=== PATIENT | female | born 1945 | race Caucasian/White ===

== ENCOUNTER 2024-04-20 11:34 | Outpatient (REF) | payer MEDICARE, SELFPAY ==
[2024-04-20 12:55] LABS: MANUAL DIFF FLAG NO
[2024-04-20 12:59] LABS: Basophils Percent Auto 0.4 % (0-2); Eosinophils Absolute Auto 0.2 X10*3/uL (0.0-0.4); Eosinophils Percent Auto 2.3 % (0-4); Hematocrit 37.8 % (37.0-47.0); Hemoglobin 12.6 g/dl (12.0-16.0); Imm Gran Abs Auto 0.03 X10*3/uL (0.00-0.03); Imm Gran Pct Auto 0.4 % (0.0-0.4); Lymphocytes Absolute Auto 1.7 X10*3/uL (1.2-4.9); Lymphocytes Percent Auto 24.5 % (20-40); Mean Corpuscular HGB Conc 33.3 g/dl (31.0-35.0); Mean Corpuscular Hemoglobin 32.4 pg (27.0-33.0); Mean Corpuscular Volume 97.2 fL (80.0-98.0); Mean Platelet Volume 9.5 fL (9.4-12.3); Monocytes Absolute Auto 0.8 X10*3/uL (0.1-1.2); Monocytes Percent Auto 10.8 % (2-11); Neutrophils Absolute Auto 4.3 x10*3/uL (2.0-8.3); Neutrophils Percent Auto 61.6 % (45-73); Platelet Count 322 X10*3/uL (160-400); Red Blood Count 3.89 X10*6/uL (4.20-5.50); Red Cell Distribution Width 13.9 % (11.0-16.0)
[2024-04-20 13:38] LABS: Alanine Aminotransferase 17 U/L (0-31); Albumin Level 4.2 g/dL (3.5-5.0); Alkaline Phosphatase 105 U/L (39-117); Anion Gap 12 (12-20); Aspartate Amino Transferase 22 U/L (5-31); Bilirubin Total 0.4 mg/dL (0.0-1.0); Blood Urea Nitrogen 19 mg/dL (9-16); C Reactive Protein 1.01 mg/dL (< or = 0.50); Calcium 10.3 mg/dL (8.4-10.2); Carbon Dioxide 29 mmol/L (22-29); Chloride 102 mmol/L (96-108); Estimated Glomerular Filt Rate > 60; Glucose Random 103 mg/dL (60-115); Potassium 4.5 mmol/L (3.3-5.1); Sodium 138 mmol/L (135-145); Total Protein 7.3 g/dL (6.5-8.0)
[2024-04-21 08:42] LABS: HBS Num1 0.32 mIU/mL (0-7.99); HBc Num1 0.09 S/CO (0.00-0.79); HBsAGNum1 0.19 S/CO (0.00-0.99); Hepatitis A Antibody IgM 0.11 Index (0-0.79); Hepatitis B Core Antibody Nonreactive (Nonreactive); Hepatitis B Surface Antigen Negative (Negative); ~HepC Num1 0.05 S/CO (0.00-0.79); ~Hepatitis A Antibody IgM Nonreactive (Nonreactive); ~Hepatitis B Surface Antibody NONREACTIVE (Nonreactive); ~Hepatitis C Antibody Nonreactive (Nonreactive)
[2024-04-21 19:59] LABS: Myeloperoxidase Antibody <1.0 AI; Proteinase 3 PR3 Antibodies <1.0 AI
[2024-04-22 15:59] LABS: Cyclic Citrullinated Peptide <16 UNITS
[2024-04-23 02:18] LABS: TS Negative Control Passed; TS Panel A 0; TS Panel B 0; TS Positive Control Passed; TSpotTB Negative (Negative)
[2024-04-24 21:30] LABS: IgA 102 mg/dL (70-320); IgG 733 mg/dL (600-1540); IgM 45 mg/dL (50-300)
[2024-04-27 21:28] LABS: Prot Elec - Albumin 4.2 g/dL (3.8-4.8); Prot Elec - Alpha1 0.4 g/dL (0.2-0.3); Prot Elec - Beta 1 0.5 g/dL (0.4-0.6); Prot Elec - Beta 2 0.4 g/dL (0.2-0.5); Prot Elec - Gamma 0.7 g/dL (0.8-1.7); Prot Elec - Total Protein 7.1 g/dL (6.1-8.1)
== END 2024-04-20 11:35 | disposition home or self-care (01) ==
LOC: HO.LAB 11:34
PROVIDERS: Visit Provider Student in an Organized Health Care Education/Training Program
DX: M31.6 Other giant cell arteritis (principal); Z11.59 Encounter for screening for other viral diseases; Z11.7 Encounter for testing for latent tuberculosis infection; Z72.89 Other problems related to lifestyle
CPT/HCPCS: 36415; 80053; 82550; 82784; 84165; 85025; 86021; 86140; 86200; 86334; 86481; 86704; 86706; 86709; 86803; 87340; 99202

== ENCOUNTER 2024-04-20 11:34 | Outpatient (AMB) | payer MEDICARE, SELFPAY ==
--- NOTE | 2024-04-20 11:35 | A.OFFVIS_ITS ---
Vital Signs 04/20/24 11:38 Height 5 ft 6 in Weight 126 lb 1.671 oz BMI 20.4 BP 122/70 Blood Pressure Location Lt brachial Position Sitting Pulse 60 Pulse Source Pulse Oximeter Pulse Oximetry (%) 97 Oxygen Delivery Method Room Air Intake Visit Reasons: Temporal Arteritis Intake Note: Patient presents for Temporal. wondering if temporal arthritis is coming back. Allergies Sulfa (Sulfonamide Antibiotics) [SULFA (SULFONAMIDE ANTIBIOTICS)] Allergy (Unknown, Verified 04/20/24 11:45) RASH thimerosal [THIMEROSAL] Allergy (Unknown, Verified 04/20/24 11:45) EYE RASH sulfa Allergy (Mild, Uncoded 04/20/24 11:45) Rash Thimerosal Allergy (Mild, Uncoded 04/20/24 11:45) Rash Medication List - Last Reconciled 04/20/24 by Keyur Barfield MD aspirin (Adult Aspirin Regimen) 81 mg PO DAILY atorvastatin 10 mg PO DAILY levothyroxine mcg PO HPI Comments Details: This is a 78-year-old female with history of temporal arteritis who presents as a new patient. Symptoms started in 2014 with mild right-sided headaches associated with jaw and tongue claudication. Eventually she had a right temporal artery biopsy which was consistent with temporal arteritis. She states that she has a diagnosis of ocular migraines for many years before that. Patient was evaluated by Dr. Ya at [place] and was on prednisone until 11/2020. Last February patient started having right scalp sensitivity. She would have some temporal area sensitivity and discomfort whenever she palpates the area. At [place], her CRP was elevated and she was started on prednisone for 2 weeks. She stated that prednisone did not help her scalp sensitivity much. She denies having any new visual symptoms. She denies any fevers, morning stiffness, swollen joints, weight loss. Denies any history of DVT/PE. She is unaware of any family history of an autoimmune rheumatic disease. [facility] Medical History Ocular migraine Nuclear sclerosis Genital HSV Prediabetes Osteoporosis without pathological fracture Wrist fracture PMR (polymyalgia rheumatica) Temporal arteritis Carotid stenosis Basal cell carcinoma Rosacea Hypothyroidism Allergic rhinitis Surgical History Cataract extraction status of left eye H/O wrist surgery History of neck surgery Hx of cataract surgery Family History Mother Emphysema/COPD Father Prostate cancer Sister Emphysema/COPD Social History Household Members: Spouse Housing: House Alcohol intake: current Comment: Occassionally Patient Tobacco Use Status: Never used Tobacco Female Reproductive History Menstrual Age of Menarche: 15 Total pregnancies: 0 Review of Systems Const Denies fever(s), Denies weight gain and Denies weight loss Eyes Reports blurry vision Card Reports irregular heart rhythm Resp Reports no additional complaints Musc Denies arthralgias and Denies stiffness Skin/Breast Denies rash Physical Exam Vital Signs: Last Vital Signs Pulse 60 04/20/24 11:38 BP 122/70 04/20/24 11:38 Pulse Ox 97 04/20/24 11:38 Oxygen Delivery Method Room Air 04/20/24 11:38 BMI result Body Mass Index 20.4 Const General: cooperative, healthy appearing and comfortable Nutritional Appearance: thin Orientation/consciousness: patient oriented x3 Limitations: no limitations HEENT Other: No temporal area tenderness bilaterally Head: Yes normocephalic and Yes atraumatic Mouth: moist mucous membranes Resp Effort & Inspection: normal respiratory effort and able to speak in complete sentences Auscultation: clear to auscultation bilaterally Cardio Rate: regular rate Skin General skin exam: no rashes or lesions noted Neuro General: patient oriented x3 Extrem Other: Osteoarthritic changes of both hands with no active synovitis Normal nailfold capillaroscopy Normal range of motion of shoulders Results Reviewed Results Reviewed: Right temporal artery biopsy 12/2015? Final diagnosis:? Segment of artery with medial inflammation and disruption of elastic lamina in keeping with giant cell arteritis Assessment & Plan Assessment & Plan (1) Temporal arteritis: Comment: September 2015: Headaches, neurologic and ocular symptoms; positive TA biopsy December 20, 2015 PDN tapered off 11/2020 Code(s): M31.6 - Other giant cell arteritis Category: Medical Plan: This is a 78-year-old female with history of temporal arteritis who presents as a new patient. Patient has been tapered off the prednisone around 11/2020. In February she started having right scalp sensitivity. Her CRP was elevated and she was prescribed prednisone without much improvement. She did not have the initial symptoms of right temporal headaches and jaw and tongue claudication. I will recheck her inflammatory markers. Follow-up in 4 weeks Plan I spent 48 minutes reviewing patient's chart, evaluating patient, ordering diagnostic workup, counseling patient and documenting in the chart Orders: Orders C Reactive Protein Today M31.6 - Other giant cell arteritis Hepatitis A,B,C Profile Today Z11.59 - Encounter for screening for other viral diseases T Spot TB Today Z11.7 - Encounter for testing for latent tuberculosis infection ANCA Vasculitides Today M31.6 - Other giant cell arteritis Complete Blood Count Auto Diff Today M31.6 - Other giant cell arteritis Comprehensive Met. Panel Today M31.6 - Other giant cell arteritis Immunofixation Pnl, Serum Today M31.6 - Other giant cell arteritis Protein Electrophoresis, Serum Today M31.6 - Other giant cell arteritis Creatine Kinase Total Today M31.6 - Other giant cell arteritis Cyclic Citrullinated Peptide Today M31.6 - Other giant cell arteritis Coding Level of Care Code New Pt Level 4 (09608) Diagnoses Temporal arteritis M31.6
[2024-04-20 11:38] VITALS: BP 122/70; PULSE 60; O2SAT 97; BMI 20.4
== END 2024-04-20 12:19 | disposition home or self-care (01) ==
PROVIDERS: PCP Internal Medicine; Visit Provider Student in an Organized Health Care Education/Training Program
DX: M31.6 Other giant cell arteritis (principal)
CPT/HCPCS: 99204

== ENCOUNTER 2024-05-21 07:27 | Outpatient (AMB) | payer MEDICARE, SELFPAY ==
--- NOTE | 2024-05-21 07:29 | A.OFFVIS_ITS ---
Vital Signs 05/21/24 07:35 Height 5 ft 6 in Weight 127 lb 13.89 oz BMI 20.6 BP 112/60 Blood Pressure Location Rt brachial Position Sitting Respiration 16 Pulse 69 Pulse Source Pulse Oximeter Pulse Oximetry (%) 92 Oxygen Delivery Method Room Air Intake Visit Reasons: GCA/CM Intake Note: Patient presents for GCA. Allergies Sulfa (Sulfonamide Antibiotics) [SULFA (SULFONAMIDE ANTIBIOTICS)] Allergy (Unknown, Verified 05/21/24 07:34) RASH thimerosal [THIMEROSAL] Allergy (Unknown, Verified 05/21/24 07:34) EYE RASH sulfa Allergy (Mild, Uncoded 04/20/24 11:45) Rash Thimerosal Allergy (Mild, Uncoded 04/20/24 11:45) Rash Medication List - Last Reconciled 05/21/24 by Keyur Barfield MD aspirin (Adult Aspirin Regimen) 81 mg PO DAILY atorvastatin 10 mg PO DAILY levothyroxine mcg PO HPI Comments Details: Patient returns for follow-up. She states that she feels about the same, she continues to have slight pain and sensitivity on palpating her right temporal area, she gets intermittent jaw pain, she gets stiffness with range of motion of her hips, she also has intermittent episodes of her hands stiffening up. No joint swelling. No fever Initial history: This is a 78-year-old female with history of temporal arteritis who presents as a new patient. Symptoms started in 2014 with mild right-sided headaches associated with jaw and tongue claudication. Eventually she had a right temporal artery biopsy which was consistent with temporal arteritis. She states that she has a diagnosis of ocular migraines for many years before that. Patient was evaluated by Dr. Ya at [place] and was on prednisone until 11/2020. Last February patient started having right scalp sensitivity. She would have some temporal area sensitivity and discomfort whenever she palpates the area. At [place], her CRP was elevated and she was started on prednisone for 2 weeks. She stated that prednisone did not help her scalp sensitivity much. She denies having any new visual symptoms. She denies any fevers, morning stiffness, swollen joints, weight loss. Denies any history of DVT/PE. She is unaware of any family history of an autoimmune rheumatic disease. [facility] Medical History Ocular migraine Nuclear sclerosis Genital HSV Prediabetes Osteoporosis without pathological fracture Wrist fracture PMR (polymyalgia rheumatica) Temporal arteritis Carotid stenosis Basal cell carcinoma Rosacea Hypothyroidism Allergic rhinitis Surgical History Cataract extraction status of left eye H/O wrist surgery History of neck surgery Hx of cataract surgery Family History Mother Emphysema/COPD Father Prostate cancer Sister Emphysema/COPD Social History Household Members: Spouse Housing: House Alcohol intake: current Comment: Occassionally Patient Tobacco Use Status: Never used Tobacco Female Reproductive History Menstrual Age of Menarche: 15 Total pregnancies: 0 Review of Systems ENT Details: Right temporal area sensitivity and jaw pain Musc Reports arthralgias, Denies joint swelling, Reports limited range of motion and Reports stiffness Physical Exam Vital Signs: Last Vital Signs Pulse 69 05/21/24 07:35 Resp 16 05/21/24 07:35 BP 112/60 05/21/24 07:35 Pulse Ox 92 05/21/24 07:35 Oxygen Delivery Method Room Air 05/21/24 07:35 BMI result Body Mass Index 20.6 Const General: cooperative, healthy appearing and comfortable Nutritional Appearance: thin Orientation/consciousness: patient oriented x3 Limitations: no limitations HEENT Other: No temporal area tenderness bilaterally Head: Yes normocephalic and Yes atraumatic Mouth: moist mucous membranes Resp Effort & Inspection: normal respiratory effort and able to speak in complete sentences Auscultation: clear to auscultation bilaterally Cardio Rate: regular rate Skin General skin exam: no rashes or lesions noted Neuro General: patient oriented x3 Extrem Other: Osteoarthritic changes of both hands with no active synovitis Normal nailfold capillaroscopy Normal range of motion of shoulders Results Reviewed Results Reviewed: Right temporal artery biopsy 12/2015? Final diagnosis:? Segment of artery with medial inflammation and disruption of elastic lamina in keeping with giant cell arteritis Assessment & Plan Assessment & Plan (1) Temporal arteritis: Comment: September 2015: Headaches, neurologic and ocular symptoms; positive TA biopsy December 20, 2015 PDN tapered off 11/2020 Code(s): M31.6 - Other giant cell arteritis Category: Medical Plan: This is a 78-year-old female with history of temporal arteritis who presents as a new patient. Patient has been tapered off the prednisone around 11/2020. In February 2024 she started having right scalp sensitivity. Her CRP was elevated and she was prescribed prednisone, her inflammatory markers normalized, on re- evaluation her inflammatory markers increased again, patient continues to have right right temporal areas sensitivity as well as intermittent jaw pain, and slight symptoms of inflammatory arthritis/PMR. I think treatment should be restarted however I think her disease is quite mild and may respond to low doses of prednisone. Also history of osteoporosis complicated by to fractures is another reason not to use high doses of prednisone Start prednisone 5 mg daily for 1 month, repeat inflammatory markers, if inflammatory markers have normalized, we will taper prednisone by 1 mg per month If there is poor control of her symptoms, we will consider Actemra I think patient should get imaging of her great vessels. I would like to order an MR angiogram of the chest and neck. I asked patient to ask her surgeon whether her hardware in her wrists are MRI compatible. Check inflammatory markers in one-month and in 2 months before next visit (2) Osteoporosis without pathological fracture: Comment: Alendronate started 12/2017- 2020 Both wrists were fractured, 1 in 2016 and the other in 2018 Code(s): M81.0 - Age-related osteoporosis without current pathological fracture Category: Medical Plan I spent 48 minutes reviewing patient's chart, evaluating patient, ordering diagnostic workup, counseling patient and documenting in the chart Orders: Orders Comprehensive Met. Panel 2 Months M31.6 - Other giant cell arteritis C Reactive Protein 2 Months M31.6 - Other giant cell arteritis Erythrocyte Sedimentation Rate 2 Months M31.6 - Other giant cell arteritis C Reactive Protein 1 Month M31.6 - Other giant cell arteritis, M81.0 - Age- related osteoporosis without current pathological fracture Complete Blood Count Auto Diff 2 Months M31.6 - Other giant cell arteritis Complete Blood Count Auto Diff 1 Month M31.6 - Other giant cell arteritis, M81.0 - Age-related osteoporosis without current pathological fracture Comprehensive Met. Panel 1 Month M31.6 - Other giant cell arteritis, M81.0 - Age-related osteoporosis without current pathological fracture Erythrocyte Sedimentation Rate 1 Month M31.6 - Other giant cell arteritis, M81.0 - Age-related osteoporosis without current pathological fracture Medications: New prednisone 5 mg PO DAILY 30 tabs 0RF Coding Level of Care Code Est Pt Level 4 (88957) Diagnoses Temporal arteritis M31.6 Osteoporosis without pathological fracture M81.0
[2024-05-21 07:35] VITALS: BP 112/60; PULSE 69; RESP 16; O2SAT 92; BMI 20.6
== END 2024-05-21 08:20 | disposition home or self-care (01) ==
PROVIDERS: Visit Provider Student in an Organized Health Care Education/Training Program
DX: M31.6 Other giant cell arteritis (principal); M81.0 Age-related osteoporosis without current pathological fracture
CPT/HCPCS: 99214

== ENCOUNTER → 2024-05-21 07:27 | Outpatient (BNVA) | payer MEDICARE, SELFPAY | PROVIDERS: Visit Provider Student in an Organized Health Care Education/Training Program | DX: M31.6 Other giant cell arteritis (principal); M81.0 Age-related osteoporosis without current pathological fracture | CPT/HCPCS: 99212 ==

== ENCOUNTER 2024-06-03 11:52 | Outpatient (REF) | payer MEDICARE, SELFPAY ==
--- NOTE | ~2024-06-03 | MR_ITS ---
STUDY PERFORMED: MRA of the chest HISTORY: Temporal arteritis, giant cell arteritis DESCRIPTION: Routine chest MRA protocol without and with contrast was performed. 17 mL's of gadolinium this was administered. The images were reviewed and postprocessed on a dedicated 3-D workstation. COMPARISON: None FINDINGS: VASCULAR: ASCENDING AORTA: Patent and normal in caliber. The mid segment measures 3.1 x 3.0 cm. No evidence of wall thickening or vessel irregularity AORTIC ARCH: Patent and normal in caliber. The mid aortic arch 2.5 x 2.4 cm. Three-vessel arch anatomy. The great vessels are patent. There is mild wall irregularity and patulous appearance of the bilateral subclavian arteries. No significant stenosis or dissection. DESCENDING AORTA: Normal in caliber and patent. Mid segment measures 2.3 x 2.1 cm. No evidence of vessel wall irregularity or fold thickening. ABDOMINAL AORTA: Visualized proximal abdominal aorta is normal in caliber. Visualized mesenteric vessels and renal arteries are patent and normal in caliber CENTRAL THORACIC VENOUS SYSTEM: Patent NONVASCULAR: Heart is normal in size. Pericardium is normal. No mediastinal or hilar lymphadenopathy. Lung parenchyma is clear. No pleural effusions. MR/MR angio chest wo/w con IMPRESSION: 1. Mild wall irregularity and patulous appearance of the bilateral subclavian arteries consistent with history of underlying arteritis. No significant stenosis or dissection. 2. The thoracic aorta is normal in caliber and patent. Electronically signed by: Delonte Dong MD 06/05/2024 01:17 PM EDT
[2024-06-03] MEDS: gadobutroL 7.5 ML VIAL IVPUSH (13:50)
[2024-06-03] MEDS: gadobutroL 10 ML VIAL IVPUSH (13:52)
== END 2024-06-03 11:53 | disposition home or self-care (01) ==
LOC: HO.MRI 11:52
PROVIDERS: Visit Provider Student in an Organized Health Care Education/Training Program
DX: M31.6 Other giant cell arteritis (principal)
CPT/HCPCS: 71555; A9585

== ENCOUNTER 2024-06-08 11:49 | Outpatient (REF) | payer MEDICARE, SELFPAY ==
--- NOTE | ~2024-06-08 | MR_ITS ---
EXAMINATION: MR ANGIOGRAPHY NECK WITHOUT AND WITH CONTRAST CLINICAL INFORMATION: 78-year-old female, diagnostic proven temporal arteritis. Assess for vasculitis. COMPARISON: No prior angiography of the neck or head. TECHNIQUE: MRA of the neck was obtained using standard [id number] and sequences without and also with contrast. Intravenous contrast: Gadavist 10 mL. The degree of stenosis determined by criteria similar to NASCET. Multiplanar as well as MIP reformatted images were constructed. Please note, due to [facility] contractual, systems, and staffing issues, an [facility] radiologist was not available for review and dictation of this case until 06/26/2024 FINDINGS: Aortic arch is normal in caliber and enhancement without aneurysm. There is a three-vessel branching pattern. Great vessels are widely patent into the inferior neck. The right subclavian artery demonstrates a mild stenosis with mild irregularity immediately after the takeoff of the right vertebral artery origin, with a tandem moderate stenosis present approximately 2.1 cm more distally (series 10, image 57). (Also see 3-D reformatting series 1019-2). The left subclavian artery also demonstrates a mildly beaded appearance after the origin of the left vertebral artery, with only mild stenosis and no high-grade stenosis. The right vertebral artery is dominant, and demonstrates a patent origin, patent V1, V2, V3, and patent V4 segments without evidence of luminal narrowing or dissection. The left vertebral artery is nondominant, demonstrates mild narrowing at the ostium but is otherwise normal in caliber and course throughout the V1, V2, V3, and V4 segments. It does join to form the basilar artery with the right vertebral artery. Normal antegrade flow in both vertebral arteries. The basilar artery is normal in caliber and course, as is the basilar tip and posterior cerebral arteries. The right common carotid artery is normal in caliber and contour to the bifurcation. The right ICA is normal in caliber and course into the skull base. The intracranial ICA is normal without narrowing or aneurysm. The external carotid artery on the right is normal in caliber and enhancement pattern. The left common carotid artery demonstrates a patent origin, and is normal in course and caliber to the bifurcation. The left ICA is normal in caliber and course into the skull base. Intracranial left ICA is normal without narrowing or aneurysm. The left external carotid artery is normal in caliber and enhancement pattern. Limited imaging of the proximal MCAs, ACAs, and anterior communicating artery demonstrate no abnormality. The imaged sigmoid sinuses, and jugular bulb enhance normally. MR/MR angio neck wo/w con IMPRESSION: 1. Mild beaded appearance of both subclavian arteries after the origin of the vertebral arteries, resulting in a moderate right subclavian stenosis and a mild left subclavian stenosis. Findings are consistent with given history of giant cell arteritis. 2. The remainder of the major arterial structures appear normal, including the bilateral vertebral arteries, bilateral CCAs, ICAs, and ECAs. No evidence of stenosis or aneurysm. 3. Limited imaging of the intracranial arterial structures demonstrates no abnormalities. Electronically signed by: Gopi Scott MD 06/26/2024 04:47 PM EDT
[2024-06-08] MEDS: gadobutroL 7.5 ML VIAL IVPUSH (13:48)
[2024-06-08] MEDS: gadobutroL 2 ML VIAL IVPUSH (13:49)
== END 2024-06-08 11:50 | disposition home or self-care (01) ==
LOC: HO.MRI 11:49
PROVIDERS: Visit Provider Student in an Organized Health Care Education/Training Program
DX: M31.6 Other giant cell arteritis (principal)
CPT/HCPCS: 70549; A9585

== ENCOUNTER 2024-06-18 13:49 | Outpatient (REF) | payer MEDICARE, SELFPAY ==
[2024-06-18 14:03] LABS: MANUAL DIFF FLAG NO
[2024-06-18 14:26] LABS: Basophils Percent Auto 0.4 % (0-2); Eosinophils Absolute Auto 0.1 X10*3/uL (0.0-0.4); Eosinophils Percent Auto 0.7 % (0-4); Hematocrit 39.9 % (37.0-47.0); Hemoglobin 13.2 g/dl (12.0-16.0); Imm Gran Abs Auto 0.05 X10*3/uL (0.00-0.03); Imm Gran Pct Auto 0.4 % (0.0-0.4); Lymphocytes Absolute Auto 1.7 X10*3/uL (1.2-4.9); Mean Corpuscular HGB Conc 33.1 g/dl (31.0-35.0); Mean Corpuscular Hemoglobin 32.1 pg (27.0-33.0); Mean Corpuscular Volume 97.1 fL (80.0-98.0); Mean Platelet Volume 9.9 fL (9.4-12.3); Monocytes Absolute Auto 0.5 X10*3/uL (0.1-1.2); Monocytes Percent Auto 4.3 % (2-11); Neutrophils Absolute Auto 8.9 x10*3/uL (2.0-8.3); Neutrophils Percent Auto 79.2 % (45-73); Platelet Count 260 X10*3/uL (160-400); Red Blood Count 4.11 X10*6/uL (4.20-5.50); Red Cell Distribution Width 13.5 % (11.0-16.0); White Blood Count 11.3 X10*3/uL (4.8-10.8)
[2024-06-18 14:53] LABS: Alanine Aminotransferase 20 U/L (0-31); Albumin Level 4.5 g/dL (3.5-5.0); Alkaline Phosphatase 98 U/L (39-117); Anion Gap 13 (12-20); Aspartate Amino Transferase 20 U/L (5-31); Bilirubin Total 0.4 mg/dL (0.0-1.0); Blood Urea Nitrogen 25 mg/dL (9-16); C Reactive Protein 0.12 mg/dL (< or = 0.50); Calcium 10.7 mg/dL (8.4-10.2); Carbon Dioxide 27 mmol/L (22-29); Chloride 101 mmol/L (96-108); Estimated Glomerular Filt Rate > 60; Glucose Random 125 mg/dL (60-115); Potassium 4.8 mmol/L (3.3-5.1); Sodium 136 mmol/L (135-145); Total Protein 7.4 g/dL (6.5-8.0)
[2024-06-18 15:07] LABS: Erythrocyte Sedimentation Rate 12 MM/HR (0-20)
== END 2024-06-18 13:50 | disposition home or self-care (01) ==
LOC: HO.LAB 13:49
PROVIDERS: PCP Internal Medicine; Visit Provider Student in an Organized Health Care Education/Training Program
DX: M31.6 Other giant cell arteritis (principal); M81.0 Age-related osteoporosis without current pathological fracture
CPT/HCPCS: 36415; 80053; 85025; 85652; 86140

== ENCOUNTER 2024-07-22 15:12 | Outpatient (REF) | payer MEDICARE, SELFPAY ==
[2024-07-22 15:33] LABS: MANUAL DIFF FLAG NO
[2024-07-22 15:47] LABS: Basophils Absolute Auto 0.1 X10*3/uL (0.0-0.2); Basophils Percent Auto 0.5 % (0-2); Eosinophils Absolute Auto 0.1 X10*3/uL (0.0-0.4); Hematocrit 37.7 % (37.0-47.0); Hemoglobin 12.6 g/dl (12.0-16.0); Imm Gran Abs Auto 0.08 X10*3/uL (0.00-0.03); Imm Gran Pct Auto 0.7 % (0.0-0.4); Lymphocytes Absolute Auto 1.6 X10*3/uL (1.2-4.9); Lymphocytes Percent Auto 14.6 % (20-40); Mean Corpuscular HGB Conc 33.4 g/dl (31.0-35.0); Mean Corpuscular Hemoglobin 32.1 pg (27.0-33.0); Mean Corpuscular Volume 95.9 fL (80.0-98.0); Mean Platelet Volume 9.3 fL (9.4-12.3); Monocytes Absolute Auto 0.9 X10*3/uL (0.1-1.2); Monocytes Percent Auto 8.5 % (2-11); Neutrophils Absolute Auto 8.1 x10*3/uL (2.0-8.3); Neutrophils Percent Auto 74.7 % (45-73); Platelet Count 310 X10*3/uL (160-400); Red Blood Count 3.93 X10*6/uL (4.20-5.50); Red Cell Distribution Width 13.2 % (11.0-16.0); White Blood Count 10.9 X10*3/uL (4.8-10.8)
[2024-07-22 16:04] LABS: Alanine Aminotransferase 16 U/L (0-31); Albumin Level 3.9 g/dL (3.5-5.0); Alkaline Phosphatase 92 U/L (39-117); Anion Gap 11 (12-20); Aspartate Amino Transferase 23 U/L (5-31); Bilirubin Total 0.2 mg/dL (0.0-1.0); Blood Urea Nitrogen 15 mg/dL (9-16); C Reactive Protein 3.86 mg/dL (< or = 0.50); Calcium 9.8 mg/dL (8.4-10.2); Carbon Dioxide 29 mmol/L (22-29); Chloride 100 mmol/L (96-108); Estimated Glomerular Filt Rate 49; Glucose Random 119 mg/dL (60-115); Potassium 4.7 mmol/L (3.3-5.1); Sodium 135 mmol/L (135-145)
[2024-07-22 20:11] LABS: Erythrocyte Sedimentation Rate 33 MM/HR (0-20)
== END 2024-07-22 15:13 | disposition home or self-care (01) ==
LOC: HO.LAB 15:12
PROVIDERS: PCP Internal Medicine; Visit Provider Student in an Organized Health Care Education/Training Program
DX: M31.6 Other giant cell arteritis (principal)
CPT/HCPCS: 36415; 80053; 85025; 85652; 86140

== ENCOUNTER 2024-07-23 11:16 | Outpatient (AMB) | payer MEDICARE, SELFPAY ==
--- NOTE | 2024-07-23 11:18 | MHC.OFFVIS ---
Vital Signs 07/23/24 11:21 Height 5 ft 6 in Weight 128 lb 11.999 oz BMI 20.8 BP 112/62 Blood Pressure Location Lt brachial Position Sitting Respiration 16 Pulse 58 Pulse Oximetry (%) 98 Oxygen Delivery Method Simple Mask Intake Visit Reasons: PMR/CM Intake Note: Patient presents for PMR. Allergies Sulfa (Sulfonamide Antibiotics) [SULFA (SULFONAMIDE ANTIBIOTICS)] Allergy (Unknown, Verified 07/23/24 11:21) RASH thimerosal [THIMEROSAL] Allergy (Unknown, Verified 07/23/24 11:21) EYE RASH sulfa Allergy (Mild, Uncoded 04/20/24 11:45) Rash Thimerosal Allergy (Mild, Uncoded 04/20/24 11:45) Rash Medication List - Last Reconciled 07/23/24 by Keyur Barfield MD aspirin (Adult Aspirin Regimen) 81 mg PO DAILY atorvastatin 10 mg PO DAILY levothyroxine mcg PO prednisone 4 mg (4 x 1 mg) PO DAILY 35 days HPI Comments Details: 78-year-old female with GCA returns for follow-up. She is here with her . They just returned from a trip to [place] and she had a bad upper respiratory tract infection with fever nasal congestion and cough. She was recently evaluated by her PCP and was prescribed a Z-Charlie. Symptoms are improving but she continues to have cough, nasal congestion. She denies any fevers. She denies any symptoms suggestive of active GCA flare such as scalp sensitivity, jaw claudication, headaches. Initial history: This is a 78-year-old female with history of temporal arteritis who presents as a new patient. Symptoms started in 2014 with mild right-sided headaches associated with jaw and tongue claudication. Eventually she had a right temporal artery biopsy which was consistent with temporal arteritis. She states that she has a diagnosis of ocular migraines for many years before that. Patient was evaluated by Dr. Ya at [place] and was on prednisone until 11/2020. Last February patient started having right scalp sensitivity. She would have some temporal area sensitivity and discomfort whenever she palpates the area. At [place], her CRP was elevated and she was started on prednisone for 2 weeks. She stated that prednisone did not help her scalp sensitivity much. She denies having any new visual symptoms. She denies any fevers, morning stiffness, swollen joints, weight loss. Denies any history of DVT/PE. She is unaware of any family history of an autoimmune rheumatic disease. [facility] Medical History Ocular migraine Nuclear sclerosis Genital HSV Prediabetes Osteoporosis without pathological fracture Wrist fracture PMR (polymyalgia rheumatica) Temporal arteritis Carotid stenosis Basal cell carcinoma Rosacea Hypothyroidism Allergic rhinitis Surgical History Cataract extraction status of left eye H/O wrist surgery History of neck surgery Hx of cataract surgery Family History Mother Emphysema/COPD Father Prostate cancer Sister Emphysema/COPD Social History Household Members: Spouse Housing: House Alcohol intake: current Comment: Occassionally Patient Tobacco Use Status: Never used Tobacco Female Reproductive History Menstrual Age of Menarche: 15 Total pregnancies: 0 Review of Systems Const Reports fatigue and Reports weakness ENT Reports nasal congestion and Reports sinus pain Card Denies dyspnea on exertion Resp Reports cough and Denies dyspnea on exertion Musc Reports arthralgias and Denies joint swelling Neuro Reports weakness Endo Reports fatigue Physical Exam Vital Signs: Last Vital Signs Pulse 58 07/23/24 11:21 Resp 16 07/23/24 11:21 BP 112/62 07/23/24 11:21 Pulse Ox 98 07/23/24 11:21 Oxygen Delivery Method Simple Mask 07/23/24 11:21 BMI result Body Mass Index 20.8 Const General: cooperative, healthy appearing and comfortable Nutritional Appearance: thin Orientation/consciousness: patient oriented x3 Limitations: no limitations HEENT Other: No temporal area tenderness bilaterally Patient is wearing a mask Bilateral maxillary sinus tenderness Head: Yes normocephalic and Yes atraumatic Mouth: moist mucous membranes Resp Effort & Inspection: normal respiratory effort and able to speak in complete sentences Auscultation: clear to auscultation bilaterally Cardio Rate: regular rate Skin General skin exam: no rashes or lesions noted Neuro General: patient oriented x3 Extrem Other: Osteoarthritic changes of both hands with no active synovitis Normal nailfold capillaroscopy Normal range of motion of shoulders Results Reviewed Results Reviewed: Right temporal artery biopsy 12/2015? Final diagnosis:? Segment of artery with medial inflammation and disruption of elastic lamina in keeping with giant cell arteritis MR/MR angio neck wo/w con IMPRESSION: 1. Mild beaded appearance of both subclavian arteries after the origin of the vertebral arteries, resulting in a moderate right subclavian stenosis and a mild left subclavian stenosis. Findings are consistent with given history of giant cell arteritis. 2. The remainder of the major arterial structures appear normal, including the bilateral vertebral arteries, bilateral CCAs, ICAs, and ECAs. No evidence of stenosis or aneurysm. 3. Limited imaging of the intracranial arterial structures demonstrates no abnormalities. Electronically signed by: Gopi Scott MD 06/26/2024 04:47 PM Assessment & Plan Assessment & Plan (1) Temporal arteritis: Comment: September 2015: Headaches, neurologic and ocular symptoms; positive TA biopsy December 20, 2015 PDN tapered off 11/2020 Mild flare prednisone restarted 05/2024 Code(s): M31.6 - Other giant cell arteritis Category: Medical Plan: This is a 78-year-old female with history of temporal arteritis who presents for follow-up. She is doing well overall in terms of her GCA. However she is recovering from an upper respiratory tract infection. This likely explains her elevated inflammatory markers. Advised patient to continue with prednisone 4 mg daily until her current infection resolves then taper down to 3 mg daily for a month then 2 mg daily for 1 month Labs before next visit in 2 months (2) Osteoporosis without pathological fracture: Comment: Alendronate started 12/2017- 2020 Both wrists were fractured, 1 in 2017 and the other in 2018 Code(s): M81.0 - Age-related osteoporosis without current pathological fracture Category: Medical Plan: Due for repeat DEXA 11/2024 Plan I spent 28 minutes reviewing patient's chart, evaluating patient, ordering diagnostic workup, counseling patient and documenting in the chart Orders: Orders Complete Blood Count Auto Diff 2 Months . - Other giant cell arteritis Comprehensive Met. Panel 2 Months - Other giant cell arteritis C Reactive Protein 2 Months . - Other giant cell arteritis Erythrocyte Sedimentation Rate 2 Months . - Other giant cell arteritis Medications: Changed From prednisone 4 mg (4 x 1 mg) PO DAILY 35 days 140 tabs 0RF To prednisone 4 mg (4 x 1 mg) PO DAILY 120 tabs 1RF Coding Level of Care Code Est Pt Level 4 (40841) Diagnoses Temporal arteritis M31.6 Osteoporosis without pathological fracture M81.0
[2024-07-23 11:21] VITALS: BP 112/62; PULSE 58; RESP 16; O2SAT 98; BMI 20.8
== END 2024-07-23 11:43 | disposition home or self-care (01) ==
PROVIDERS: PCP Internal Medicine; Visit Provider Student in an Organized Health Care Education/Training Program
DX: M31.6 Other giant cell arteritis (principal); M81.0 Age-related osteoporosis without current pathological fracture
CPT/HCPCS: 99214

== ENCOUNTER → 2024-07-23 11:16 | Outpatient (BNVA) | payer MEDICARE, SELFPAY | PROVIDERS: PCP Internal Medicine; Visit Provider Student in an Organized Health Care Education/Training Program | DX: M31.6 Other giant cell arteritis (principal); M81.0 Age-related osteoporosis without current pathological fracture | CPT/HCPCS: 99212 ==

== ENCOUNTER 2024-09-29 13:37 | Outpatient (REF) | payer MEDICARE, SELFPAY ==
[2024-09-29 13:50] LABS: MANUAL DIFF FLAG NO
[2024-09-29 13:54] LABS: Basophils Absolute Auto 0.1 X10*3/uL (0.0-0.2); Basophils Percent Auto 0.5 % (0-2); Eosinophils Absolute Auto 0.1 X10*3/uL (0.0-0.4); Eosinophils Percent Auto 0.8 % (0-4); Hematocrit 37.5 % (37.0-47.0); Hemoglobin 12.7 g/dl (12.0-16.0); Imm Gran Abs Auto 0.04 X10*3/uL (0.00-0.03); Imm Gran Pct Auto 0.4 % (0.0-0.4); Lymphocytes Absolute Auto 1.8 X10*3/uL (1.2-4.9); Lymphocytes Percent Auto 18.1 % (20-40); Mean Corpuscular HGB Conc 33.9 g/dl (31.0-35.0); Mean Corpuscular Hemoglobin 32.7 pg (27.0-33.0); Mean Corpuscular Volume 96.6 fL (80.0-98.0); Mean Platelet Volume 9.5 fL (9.4-12.3); Monocytes Absolute Auto 0.8 X10*3/uL (0.1-1.2); Monocytes Percent Auto 8.1 % (2-11); Neutrophils Percent Auto 72.1 % (45-73); Platelet Count 267 X10*3/uL (160-400); Red Blood Count 3.88 X10*6/uL (4.20-5.50); Red Cell Distribution Width 14.1 % (11.0-16.0); White Blood Count 9.7 X10*3/uL (4.8-10.8)
[2024-09-29 14:15] LABS: Anion Gap 12 (12-20)
[2024-09-29 14:18] LABS: Aspartate Amino Transferase 30 U/L (5-31); Bilirubin Total 0.4 mg/dL (0.0-1.0); Blood Urea Nitrogen 24 mg/dL (9-16); C Reactive Protein 0.13 mg/dL (< or = 0.50); Calcium 9.6 mg/dL (8.4-10.2); Carbon Dioxide 25 mmol/L (22-29); Chloride 102 mmol/L (96-108); Estimated Glomerular Filt Rate > 60; Glucose Random 109 mg/dL (60-115); Potassium 4.9 mmol/L (3.3-5.1); Sodium 134 mmol/L (135-145)
[2024-09-29 14:37] LABS: Alanine Aminotransferase 21 U/L (0-31); Alkaline Phosphatase 76 U/L (39-117); Erythrocyte Sedimentation Rate 18 MM/HR (0-20)
== END 2024-09-29 13:38 | disposition home or self-care (01) ==
LOC: HO.LAB 13:37
PROVIDERS: PCP Internal Medicine; Visit Provider Student in an Organized Health Care Education/Training Program
DX: M31.6 Other giant cell arteritis (principal)
CPT/HCPCS: 36415; 80053; 85025; 85652; 86140

== ENCOUNTER 2024-09-30 14:46 | Outpatient (AMB) | payer MEDICARE, SELFPAY ==
--- NOTE | 2024-09-30 14:51 | A.OFFVIS_ITS ---
Vital Signs 09/30/24 14:55 Height 5 ft 6 in Weight 127 lb 13.89 oz BMI 20.6 BP 112/50 L Blood Pressure Location Rt brachial Position Sitting Respiration 16 Pulse 65 Pulse Source Pulse Oximeter Pulse Oximetry (%) 98 Oxygen Delivery Method Room Air Intake Visit Reasons: GCA Intake Note: Patient presents for GCA. Allergies Sulfa (Sulfonamide Antibiotics) [SULFA (SULFONAMIDE ANTIBIOTICS)] Allergy (Unknown, Verified 09/30/24 14:54) RASH thimerosal [THIMEROSAL] Allergy (Unknown, Verified 09/30/24 14:54) EYE RASH sulfa Allergy (Mild, Uncoded 04/20/24 11:45) Rash Thimerosal Allergy (Mild, Uncoded 04/20/24 11:45) Rash Medication List - Last Reconciled 09/30/24 by Keyur Barfield MD aspirin (Adult Aspirin Regimen) 81 mg PO DAILY atorvastatin 10 mg PO DAILY levothyroxine mcg PO prednisone 4 mg (4 x 1 mg) PO DAILY HPI Comments Details: 79-year-old female with GCA returns for follow-up. She is doing well overall. The right temporal area sensitivity is improving but she still gets episodes. She has noticed some stiffness difficulty moving her left 3rd finger, usually in the morning. She was evaluated 2 days ago by an eye doctor and she had a change in her prescription. She is doing well otherwise Initial history: This is a 78-year-old female with history of temporal arteritis who presents as a new patient. Symptoms started in 2014 with mild right-sided headaches associated with jaw and tongue claudication. Eventually she had a right temporal artery biopsy which was consistent with temporal arteritis. She states that she has a diagnosis of ocular migraines for many years before that. Patient was evaluated by Dr. Ya at [place] and was on prednisone until 11/2020. Last February patient started having right scalp sensitivity. She would have some temporal area sensitivity and discomfort whenever she palpates the area. At [place], her CRP was elevated and she was started on prednisone for 2 weeks. She stated that prednisone did not help her scalp sensitivity much. She denies having any new visual symptoms. She denies any fevers, morning stiffness, swollen joints, weight loss. Denies any history of DVT/PE. She is unaware of any family history of an autoimmune rheumatic disease. [facility] Medical History Ocular migraine Nuclear sclerosis Genital HSV Prediabetes Osteoporosis without pathological fracture Wrist fracture PMR (polymyalgia rheumatica) Temporal arteritis Carotid stenosis Basal cell carcinoma Rosacea Hypothyroidism Allergic rhinitis Surgical History Cataract extraction status of left eye H/O wrist surgery History of neck surgery Hx of cataract surgery Family History Mother Emphysema/COPD Father Prostate cancer Sister Emphysema/COPD Social History Household Members: Spouse Housing: House Alcohol intake: current Comment: Occassionally Patient Tobacco Use Status: Never used Tobacco Female Reproductive History Menstrual Age of Menarche: 15 Total pregnancies: 0 Review of Systems ENT Details: Right temporal area sensitivity Musc Reports limited range of motion and Reports stiffness Physical Exam Vital Signs: Last Vital Signs Pulse 65 09/30/24 14:55 Resp 16 09/30/24 14:55 BP 112/50 L 09/30/24 14:55 Pulse Ox 98 09/30/24 14:55 Oxygen Delivery Method Room Air 09/30/24 14:55 BMI result Body Mass Index 20.6 Const General: cooperative, healthy appearing and comfortable Nutritional Appearance: thin Orientation/consciousness: patient oriented x3 Limitations: no limitations HEENT Other: No temporal area tenderness bilaterally Head: Yes normocephalic and Yes atraumatic Mouth: moist mucous membranes Resp Effort & Inspection: normal respiratory effort and able to speak in complete sentences Auscultation: clear to auscultation bilaterally Cardio Rate: regular rate Skin General skin exam: no rashes or lesions noted Neuro General: patient oriented x3 Extrem Other: Osteoarthritic changes of both hands with no active synovitis Very subtle triggering of the left 3rd finger Normal nailfold capillaroscopy Normal range of motion of shoulders Results Reviewed Results Reviewed: Right temporal artery biopsy 12/2015? Final diagnosis:? Segment of artery with medial inflammation and disruption of elastic lamina in keeping with giant cell arteritis MR/MR angio neck wo/w con IMPRESSION: 1. Mild beaded appearance of both subclavian arteries after the origin of the vertebral arteries, resulting in a moderate right subclavian stenosis and a mild left subclavian stenosis. Findings are consistent with given history of giant cell arteritis. 2. The remainder of the major arterial structures appear normal, including the bilateral vertebral arteries, bilateral CCAs, ICAs, and ECAs. No evidence of stenosis or aneurysm. 3. Limited imaging of the intracranial arterial structures demonstrates no abnormalities. Electronically signed by: Gopi Scott MD 06/26/2024 04:47 PM Assessment & Plan Assessment & Plan (1) Temporal arteritis: Comment: September 2015: Headaches, neurologic and ocular symptoms; positive TA biopsy December 20, 2015 PDN tapered off 11/2020 Mild flare prednisone restarted 05/2024 Code(s): M31.6 - Other giant cell arteritis Category: Medical Plan: This is a 79-year-old female with history of temporal arteritis who presents for follow-up. On prednisone 2 mg daily. Doing well overall with no signs suggestive of active GCA. Inflammatory markers are normal. Continue to reduce prednisone by 1 mg per month, she should be be off prednisone by the end of October Labs before next visit in 6-8 weeks (2) Osteoporosis without pathological fracture: Comment: Alendronate started 12/2017- 2020 Both wrists were fractured, 1 in 2016 and the other in 2018 Code(s): M81.0 - Age-related osteoporosis without current pathological fracture Category: Medical Plan: Due for repeat DEXA 11/2024 (3) Left trigger finger: Code(s): M65.30 - Trigger finger, unspecified finger Category: Medical Qualifiers: Trigger finger location: middle finger Qualified Code(s): M65.332 - Trigger finger, left middle finger Plan: Minimal symptoms. Discussed trigger finger, can wrap a Band-Aid around her PIP at night, consider finger splints Plan I spent 25 minutes reviewing patient's chart, evaluating patient, ordering diagnostic workup, counseling patient and documenting in the chart Orders: Orders Complete Blood Count Auto Diff 7 Weeks M31.6 - Other giant cell arteritis Comprehensive Met. Panel 7 Weeks M3.6 - Other giant cell arteritis C Reactive Protein 7 Weeks M31.6 - Other giant cell arteritis Erythrocyte Sedimentation Rate 7 Weeks M3.6 - Other giant cell arteritis XR DEXA axial skeleton 11/16/24 M81.0 - Age-related osteoporosis without current pathological fracture Coding Level of Care Code Est Pt Level 4 (58832) Diagnoses Temporal arteritis M31.6 Osteoporosis without pathological fracture M81.0 Trigger middle finger of left hand M65.332 Trigger finger location: middle finger
[2024-09-30 14:55] VITALS: BP 112/50; PULSE 65; RESP 16; O2SAT 98; BMI 20.6
== END 2024-09-30 15:21 | disposition home or self-care (01) ==
PROVIDERS: PCP Internal Medicine; Visit Provider Student in an Organized Health Care Education/Training Program
DX: M31.6 Other giant cell arteritis (principal); M81.0 Age-related osteoporosis without current pathological fracture; M65.332 Trigger finger, left middle finger
CPT/HCPCS: 99214

== ENCOUNTER → 2024-09-30 14:46 | Outpatient (BNVA) | payer MEDICARE, SELFPAY | PROVIDERS: PCP Internal Medicine; Visit Provider Student in an Organized Health Care Education/Training Program | DX: M31.6 Other giant cell arteritis (principal); M81.0 Age-related osteoporosis without current pathological fracture; M65.332 Trigger finger, left middle finger | CPT/HCPCS: 99212 ==

== ENCOUNTER 2024-11-13 12:55 | Outpatient (REF) | payer MEDICARE, SELFPAY ==
--- NOTE | ~2024-11-13 | MM_ITS ---
EXAMINATION: DXA BONE DENSITY AXIAL HISTORY: Estrogen deficiency TECHNIQUE: [employer] Dual energy absorptiometry (DEXA) of the lumbar spine, total left hip, and femoral neck was performed. COMPARISON: There are no prior studies for comparison. FINDINGS: The bone mineral density of the lumbar spine is 0.902 with a T-score of -2.3, and a Z-score of -0.2. The bone mineral density of the left total hip is 0.682 with a T-score of -2.6, and a Z-score of -0.5. The bone mineral density of the left femoral neck is 0.765 with a T-score of -2.0, and a Z-score of 0.2. FRACTURE RISK: The FRAX index suggests a risk of major osteoporotic fracture of 26.5%, and of hip fracture 8.3%. MM/XR DEXA axial skeleton IMPRESSION: Based on bone mineral density, and according to World Health Organization (WHO) criteria, the diagnosis is consistent with osteoporosis. All bone density values are in grams per centimeter squared (g/cm2). Statistically, 68% of repeat scans fall within 1 SD (+/- 0.010 g/cm2 for AP spine L1-L4) and 1 SD (+/- 0.012 g/cm2 for femur total) FRAX is a trademark of the [employer] [place] for Metabolic Bone Disease, a World Health Organization (WHO) Collaborating Center. Electronically signed by: Amadeo Aguilar MD 11/16/2024 12:57 PM [facility]
--- OUTSIDE RECORDS SUMMARY | 2024-11-13 13:09 | XMS_ITS | Encounter Summary ---
Author Organization [facility] Address [address] [place] [address] Care Team Providers Care Splitting Machine Operator Name Role Phone Norma Conde MD Primary Care Provider [phone] Reason for Visit * Reason Comments Hyperlipidemia Hypothyroidism Follow-up 6 MO Encounter Details Date Type Department Care Team ([facility] Contact Info) Description 10/26/2024 2:30 PM EST Office Visit Adult Medicine [address] [phone] Norma Conde MD [address] [place] [id number] Hypothyroidism due to acquired atrophy of thyroid (Primary Dx); Age-related osteoporosis without current pathological fracture; Prediabetes; Other hyperlipidemia; Temporal arteritis (CMS/HCC); Elevated blood pressure reading Social History Tobacco Use Types Packs/Day Years Used Date Smoking Tobacco: Never Smokeless Tobacco: Never Tobacco Cessation:Counseling Given: Not Answered Alcohol Use Standard Drinks/Week Comments Yes 0 (1 standard drink = 0.6 oz pur e alcohol) Sex and Gender Information Value Date Recorded Sex Assigned at Not on file Gender Identity Not on file Sexual Orientation Not on file Job Start Date Occupation Industry Not on file Not on file Not on file documented as of this encounter Last Filed Vital Signs Vital Sign Reading Time Taken Comments Blood Pressure 161/54 10/26/2024 2:56 PM EST Pulse 61 10/26/2024 2:31 PM EST Temperature 36.2 ??C (97.2 ??F) 10/26/2024 2:31 PM ES T Respiratory Rate 14 10/26/2024 2:31 PM EST Oxygen Saturation 99% 10/26/2024 2:31 PM EST Inhaled Oxygen Concentration - - Weight 58.3 kg (128 lb 9.6 oz) 10/26/2024 2:31 P M EST Height 167.6 cm (5' 6 ) 10/26/2024 2:31 PM EST Body Mass Index 20.76 10/26/2024 2:31 PM EST documented in this encounter Progress Notes * Norma Conde MD - 10/26/2024 2:30 PM EST Chief Complaint: Chief Complaint Patient presents with Hyperlipidemia Hypothyroidism Follow-up 6 MO IDENTIFIER: Shelli Menchaca is a 79 y.o. old female HPI She comes for evaluation with hypothyroidism, elevated cholesterol, prediabetes. She is continuing on prednisone for recurrent temporal arteritis and is following with rheumatology. She has osteoporosis and will be having repeat bone density. She notes that her ears are still somewhat blocked although less, the left ear. She was referred to ENT and called for an appointment but never heard back. Her blood pressure is elevated today even with repeat testing. She notes that she did have several weeks of diarrhea up to 3 times per day, stools are now loose about once per day, no blood in the stool, no black stool, no abdominal pain or fevers. She is continuing on thyroid replacement as well as Lipitor for her cholesterol and prednisone through rheumatology, vitamin D. ROS: General: No malaise, significant weight loss or fever Respiratory: No cough, wheezing or shortness of breath Cardiovascular: No chest pain, palpitations, no orthopnea gi as noted Past Medical History: Patient Active Problem List Diagnosis Date Noted History of basal cell carcinoma 08/12/2024 Mild tricuspid regurgitation 10/16/2023 Hyperlipidemia 04/18/2023 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 Prediabetes 11/11/2019 PMR (polymyalgia rheumatica) ([facility]) 11/10/2019 Spondylosis of cervical region without myelopathy or radiculopathy 11/24/2018 Age-related osteoporosis without current pathological fracture 01/01/2018 Temporal arteritis ([facility]) 12/21/2015 Carotid stenosis 12/13/2015 NS (nuclear sclerosis) 01/07/2014 Allergic rhinitis 01/31/2009 Hypothyroidism 08/31/2006 Rosacea 08/31/2006 Surgical History: Past Surgical History: Procedure Laterality Date APPENDECTOMY 08/2016 BREAST BIOPSY Right 1993 : b9 COLONOSCOPY 09/1997 Negative COLONOSCOPY 06/02/2008 Negative COLONOSCOPY 08/22/2018 : Negative average risk screening examination. OTHER SURGICAL HISTORY Lasik surgery on the eyes SCREENING MAMMOGRAM Bilateral 05/14/2024 TONSILLECTOMY Family History: Family History Problem Relation Name Age of Onset COPD Mother age 56 Prostate cancer Father prostate cancer 89, diabetes, mycosis fungoides Emphysema Sister Prostate cancer Brother at 54 Other (Other: liver cancer) Maternal Grandmother age 63 Diabetes Paternal Grandmother age 62 Ovarian cancer Other first cousin 78 Breast cancer Neg Hx Colon cancer Neg Hx Uterine cancer Neg Hx Pancreatic cancer Neg Hx Social History: Social History Tobacco Use Smoking status: Never Smokeless tobacco: Never Substance Use Topics Alcohol use: Yes Allergies: Thimerosal and Sulfa (sulfonamide antibiotics) Medications: Outpatient Medications Marked as Taking for the 10/26/24 encounter (Office Visit) with Norma Conde MD Medication Sig Dispense Refill ascorbic acid (VITAMIN C) 125 mg chewable tablet Chew 2 tablets (250 mg total) 1 (one) time each day. aspirin 81 mg EC tablet Take 1 tablet (81 mg total) by mouth 1 (one) time each day. atorvastatin (LIPITOR) 10 mg tablet Take 1 tablet (10 mg total) by mouth 1 (one) time each day. calcium carbonate (OS-FAIZA) 1,250 mg (500 mg elemental calcium) tablet Take 2 tablets (2,500 mg total) by mouth 1 (one) time each day. cholecalciferol (VITAMIN D-3) 25 mcg (1,000 unit) tablet Take 1 tablet (1,000 Units total) by mouth1 (one) time each day. dietary supplement capsule Take 1 capsule by mouth 1 (one) time each day. Apoaequorin 10 mg- Prevagen glucosamine/chondr murray A sod (glucosamine-chondroitin) 1,500-1,200 mg/30 mL liquid Take by mouth 1 (one) time each day. levothyroxine (SYNTHROID, LEVOTHROID) 100 mcg tablet Take 1 tablet (100 mcg total) by mouth 1 (one)time each day before breakfast. SKIP SUNDAYS LUTEIN-ZEAXANTHIN ORAL Take 1 capsule by mouth 1 (one) time each day. predniSONE (DELTASONE) 1 mg tablet Take 4 tablets (4 mg total) by mouth 1 (one) time each day. Medication Discontinued/Reordered: There are no discontinued medications. Vitals: Blood pressure (!) 161/54, pulse 61, temperature 36.2 ??C (97.2 ??F), temperature source Temporal, resp. rate 14, height 1.676 m (66 ), weight 58.3 kg (128 lb 9.6 oz), SpO2 99%. Body mass index is 20.76 kg/m??.BMI is 18.5 to 24.9 (within the normal range) and will be followed Physical Exam: General: patient is in no acute distress. Tympanic membranes clear, no air fluid levels or erythema. Neck supple without adenopathy, no thyromegaly. Lungs clear with auscultation. Heart: regular [id number] murmur, rub or gallop. Abdomen soft, nontender, no masses or organomegaly. Bowel sounds normal active. Extremities without cyanosis, clubbing or edema. Labs: Lab Results Component Value Date HGBA1C 5.8 10/22/2024 Lab Results Component Value Date TSH 2.16 10/22/2024 Vitamin D level 39 Impression: 1. Hypothyroidism due to acquired atrophy of thyroid 2. Age-related osteoporosis without current pathological fracture 3. Prediabetes 4. Other hyperlipidemia 5. Temporal arteritis (CMS/HCC) 6. Elevated blood pressure reading Assessment and Plan: She will have the bone density has already planned. The diarrhea seems to be improving and she willtry using probiotics. She we will follow with rheumatology as already planned and continue on the prednisone, lipid levels have been controlled and prediabetes level is stable. She continues with a regular walking program. We did discuss repeat referral to ENT, her ear is improving and she will continue with conservative measures for now. Her blood pressure generally is not elevated at office visits but is elevated today. She will start on a careful low-sodium diet and check her blood pressure regularly at home and return in 2 weeks bringing her home machine as well as her readings for repeat evaluation of her blood pressure. Myself and my colleagues have maintained a long-term, longitudinal relationship with this patient, overseeing care of chronic conditions including hypothyroidism, prediabetes, osteoporosis, elevated cholesterol. This care relationship has significantly influenced my decision making and treatment plans during today's encounter. documented in this encounter Plan of Treatment Upcoming Encounters Date Type Department Care Team (Late st Contact Info) Description 12/16/2024 2:30 PM EST Clinical Support Adult [address] [phone] 05/20/2025 1:50 PM EDT Appointment Radiology Department - [address] [phone] 05/20/2025 2:45 PM EDT Office Visit Adult [address] [phone] Norma Conde MD [address] [place] [address] documented as of this encounter Visit Diagnoses Diagnosis Hypothyroidism due to acquired atrophy of thyroid- Primary Age-related osteoporosis without current pathological fracture Prediabetes Other abnormal glucose Other hyperlipidemia Temporal arteritis (CMS/HCC) Giant cell arteritis Elevated blood pressure reading Elevated blood pressure reading without diagnosis of hypertension Encounter for screening mammogram for breast cancer documented in this encounter Care Teams Splitting Machine Operator Relationship Specialty Start Date End Date Norma Conde MD [address] [place] [address] PCP - General 09/27/1992 documented as of this encounter
--- OUTSIDE RECORDS SUMMARY | 2024-11-13 13:09 | XMS_ITS | Encounter Summary ---
Author Organization [facility] Address [address] [place] [address] Care Team Providers Care Gauge Controller Name Role Phone Norma Conde MD Primary Care Provider [phone] Reason for Visit * Reason Onset Date Comments hep series 11/06/2024 Encounter Details Date Type Department Care Team ([facility] st Contact Info) Description 11/06/2024 Telephone Adult Medicine [facility] [address] [place] [address] Malika Clarke PA [address] [place] [address] hep series Social History Tobacco Use Types Packs/Day Years Used Date Smoking Tobacco: Never Smokeless Tobacco: Never Alcohol Use Standard Drinks/Week Comments Yes 0 (1 standard drink = 0.6 oz pur e alcohol) Sex and Gender Information Value Date Recorded Sex Assigned at Not on file Gender Identity Not on file Sexual Orientation Not on file Job Start Date Occupation Industry Not on file Not on file Not on file documented as of this encounter Progress Notes * KYLE Fernandes - 11/06/2024 4:50 PM EST [employer] message sent to pt. * Felipa Delgado - 11/06/2024 4:42 PM EST Patient will be seeing Malika on Saturday for a 2wk hypertension follow up. 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 She would like to get this done at her office visit as that is the only way her insurance will cover this. FYI for Malika I told patient I wasn't sure if this could be done but I would send a message to Malika so she knows what patient will be wanting done at her appointment. documented in this encounter Plan of Treatment Upcoming Encounters Date Type Department Care Team (Late st Contact Info) Description 12/16/2024 2:30 PM EST Clinical Support Adult Medicine [address] [phone] 05/20/2025 1:50 PM EDT Appointment Radiology Department - [address] [phone] 05/20/2025 2:45 PM EDT Office Visit Adult Medicine [address] [phone] Norma Conde MD [address] [place] [address] documented as of this encounter Visit Diagnoses Not on filedocumented in this encounter Care Teams Gauge Controller Relationship Specialty Start Date End Date Norma Conde MD [address] [place] [address] PCP - General 09[birth year]1992 documented as of this encounter
--- OUTSIDE RECORDS SUMMARY | 2024-11-13 13:09 | XMS_ITS | Clinical Summary ---
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 Apoaequorin 10 mg- Prevagen Active ascorbic acid (VITAMIN C) 125 mg chewable tablet Chew 2 tablets (250 mg total) 1 (one) time each day. Active aspirin 81 mg EC tablet Take 1 tablet (81 mg total) by mouth 1 (one) time each day. Active atorvastatin (LIPITOR) 10 mg tablet Take 1 tablet (10 mg total) by mouth 1 (one) time each day. 10/24/2023 Active cholecalciferol (VITAMIN D-3) 25 mcg (1,000 unit) tablet Take 1 tablet (1,000 Units total) by mouth 1 (one) time each day. Active glucosamine/chond r murray A sod (glucosamine-dennis droitin) 1,500-1,200 mg/30 mL liquid Take by mouth 1 (one) time each day. Active predniSONE (DELTASONE) 1 mg tablet Take 4 tablets (4 mg total) by mouth 1 (one) time each day. 07/20/2024 Active multivitamin with iron-minerals 9 mg iron/15 mL liquid Take 15 mL by mouth daily. Active ckjviyhl-bpln-vgm we-ytih-cfyrv 100 mg-150 mg- 50 mg-150 mg capsule Take 1 capsule by mouth 1 (one) time each day. Active LUTEIN-ZEAXANTHIN ORAL Take 1 capsule by mouth 1 (one) time each day. Active calcium carbonate (OS-FAIZA) 1,250 mg (500 mg elemental calcium) tablet Take 2 tablets (2,500 mg total) by mouth 1 (one) time each day. Active levothyroxine (SYNTHROID, LEVOTHROID) 88 mcg tablet Take 1 tablet (88 mcg total) by mouth 1 (one) time each day before breakfast. 90 each 11/03/2024 Active valACYclovir (VALTREX) 500 mg tablet Take 2 tablets (1,000 mg total) by mouth 1 (one) time each day. for 5 days 08/15/2024 Active levothyroxine (SYNTHROID, LEVOTHROID) 100 mcg tablet Take 1 tablet (100 mcg total) by mouth 1 (one) time each day before breakfast. 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 No change with subsequent CT angiogram September 2016 as compared with MRA from December 2015. NS (nuclear sclerosis) 01/07/2014 Overview (08/12/2024): OU. Allergic rhinitis 01/31/2009 Hypothyroidism 08/31/2006 Rosacea 08/31/2006 Encounters Date Type Department Care Team Description 11/09/2024 2:00 PM EST Office Visit Adult Medicine [address] [phone] Malika Clarke PA Elevated blood pressure reading (Primary Dx); Need for hepatitis B vaccination 11/06/2024 Telephone Adult [address] [phone] Malika Clarke PA hep series 10/26/2024 2:30 PM EST Office Visit Adult [address] [phone] Norma Conde MD Hypothyroidism due to acquired atrophy of thyroid (Primary Dx); Age-related osteoporosis without current pathological fracture; Prediabetes; Other hyperlipidemia; Temporal arteritis (CMS/HCC); Elevated blood pressure reading from Last 3 Months Immunizations Name Administration Dates Next Due COVID-19 (Pfizer/Comirnaty) 12yo and older 03/10/2024 Hepatitis B (Cooprts-Q-Afxdb , Recombivax HB-Adult) 19yo and older 11/09/2024 Influenza Quadravalent, 0.5m l (Fluad) 65yo and older 06/02/2022,08/22/2021 Influenza Quadravalent, MDCK , 0.5ml, preservative free (Flucelvax) 6mo and older 08/26/2018 Influenza trivalent, 0.5mL ( Fluad) 65yo and older 06/25/2024,07/18/2023,06/20/2017 Influenza trivalent, 0.5mL ( Fluzone High-dose) 65yo and older 07/21/2020,09/07/2019 Influenza trivalent, 0.5mL, preservative free (Fluarix; FluLaval; Fluzone) ages 6mo and older (Afluria) 3 years and older 09/24/2016,11/30/2015 Pfizer (ages 12 & older) Biv alent, COVID-19 08/29/2022 Pfizer SARS-CoV-2 COVID-19, mRNA, LNP-S, preservative free 06/25/2024,07/18/2023,02/22/2022,08/02 Pneumococcal conjugate 13 va lent (Prevnar 13, PCV13) 2mo and older 11/02/2015 Pneumococcal polysaccharide 23 valent (Pneumovax 23) 2yo and older 11/10/2012 Respiratory syncytial virus (RSV), unspecified 12/04/2023 Td Tetanus diptheria (Tdvax) 7yo and older 11/09/2021 Td, Unspecified 03/22/2003 Tdap Tetanus diptheria acell ular pertussis (Boostrix; Adacel) 7yo and older 08/09/2011 Zoster Live 02/15/2011 Zoster recombinant (Shingrix ) 19yo and older 08/10/2020,05/20/2020 Surgical History Surgery Date Site/Laterality Comments OTHER SURGICAL HISTORY Lasik surgery on the eyes COLONOSCOPY 09/1997 Negative COLONOSCOPY 06/02/2008 Negative TONSILLECTOMY APPENDECTOMY 08/2016 COLONOSCOPY 08/22/2018 : Negative average risk screening examination. 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 Negative colonoscopy 06/02/2008, no colon cancer screening needed for 10 years. 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 myelopathy or radiculopathy 11/24/2018 History of basal cell carcinoma 08/31/2006 BCC Left forearm Hypothyroidism 08/31/2006 NS (nuclear sclerosis) 01/07/2014 Prediabetes 11/11/2019 Hyperlipidemia 04/18/2023 Family History Medical History Relation Name Comments Prostate cancer Brother at 54 Prostate cancer Father prostat e cancer 89, diabetes, mycosis fungoides Other: liver cancer Maternal Grandmother age 63 COPD Mother age 56 Ovarian cancer Other first cousin Diabetes Paternal Grandmother d age 62 Emphysema Sister Breast cancer Neg Hx Colon cancer Neg Hx Pancreatic cancer Neg Hx Uterine cancer Neg Hx Relation Name Status Comments Brother Father (Age 89) Maternal Grandfather Maternal Grandmother Mother (Age 56) Other first cousin Alive Paternal Grandfather Paternal Grandmother Sister Social History Tobacco Use Types Packs/Day Years [...] file Not on file Not on file Obstetrics History Last Filed Vital Signs Vital Sign Reading Time Taken Comments Blood Pressure 119/56 11/09/2024 1:55 PM EST Pulse 66 11/09/2024 1:55 PM EST Temperature 36.1 ??C (96.9 ??F) 11/09/2024 1:55 PM ES T Respiratory Rate 13 11/09/2024 1:55 PM EST Oxygen Saturation 99% 10/26/2024 2:31 PM EST Inhaled Oxygen Concentration - - Weight 57.4 kg (126 lb 9.6 oz) 11/09/2024 1:55 P M EST Height 167.6 cm (5' 6 ) 11/09/2024 1:55 PM EST Body Mass Index 20.43 11/09/2024 1:55 PM EST Plan of Treatment Upcoming Encounters Date Type Department Care Team (Late st Contact Info) Description 12/16/2024 2:30 PM EST Clinical Support Adult Medicine [address] [phone] 05/20/2025 1:50 PM EDT Appointment Radiology Department - [address] [phone] 05/20/2025 2:45 PM EDT Office Visit Adult Medicine [facility] [address], [place] [phone] Norma Conde MD [address], [place] Health Maintenance Due Date Last Done Comments RSV Immunization Patients 60+ Years Old (1 - 1-dose 75+ series) 2022 12/04/2023 Medicare Annual Wellness Visit 09/22/2022 Social Influencers of Health Screening 09/22/2022 COVID-19 Vaccine ( season) 2024 06/25/2024, 03/10/2024, 07/18/2023, Additional history exists Hepatitis B Vaccines (2 of 3 - 19+ 3-dose series) 12/07/2024 11/09/2024 Depression Screening 04/23/2025 04/23/2024 Falls Risk Assessment 04/23/2025 04/23/2024 Cholesterol Screening (Lipid Panel) 10/22/2029 10/22/2024, 12/11/2023 DTaP,Tdap,and Td Vaccines (4 - Td or Tdap) 11/09/2031 11/09/2021, 08/09/2011, 03/22/2003 Osteoporosis Screening (Bone Density Screening) 11/15/2032 11/15/2022, 07/05/2020, 12/31/2017 Pneumococcal Vaccine: 65+ Years Completed 11/02/2015, 11/10/2012 Hepatitis C Screening Completed 11/23/2016 Zoster Vaccines Completed 08/10/2020, 04/2020, 02/15/2011 RSV Immunization Patients Under 20 months Aged Out 12/04/2023 No longer eligible based on patient's age to complete this topic Influenza Vaccine Completed 06/25/2024, , 06/02/2022, Additional history exists HIB Vaccines Aged Out No longer eligi ble based on patient's age to complete this topic HPV Vaccines Aged Out No longer eligi ble based on patient's age to complete this topic Hepatitis A Vaccines Aged Out No long er eligible based on patient's age to complete this topic IPV Vaccines Aged Out No longer eligi ble based on patient's age to complete this topic MMR Vaccines Aged Out No longer eligi ble based on patient's age to complete this topic Meningococcal ACWY Vaccine Aged Out N o longer eligible based on patient's age to complete this topic Varicella Vaccines Aged Out No longer eligible based on patient's age to complete this topic Procedures Procedure Name Priority Date/Time Associated Diagnosis Comments CBC WITH AUTO DIFFERENTIAL Routine 10/22/2024 10:14 AM EST Prediabetes Hyperlipidemia Hypothyroidism Osteoporosis MICROALBUMIN CREATININE URINE RATIO Routine 10/22/2024 10:14 AM EST Prediabetes Hyperlipidemia Hypothyroidism Osteoporosis VITAMIN D 25 HYDROXY Routine 10/22/2024 10:14 AM EST Prediabetes Hyperlipidemia Hypothyroidism Osteoporosis COMPREHENSIVE METABOLIC PANEL Routine 10/22/2024 10:14 AM EST Prediabetes Hyperlipidemia Hypothyroidism Osteoporosis LIPID PANEL WITH REFLEX TO DIRECT LDL Routine 10/22/2024 10:14 AM EST Prediabetes Hyperlipidemia Hypothyroidism Osteoporosis CBC AND DIFFERENTIAL Routine 10/22/2024 10:14 AM EST Prediabetes Hyperlipidemia Hypothyroidism Osteoporosis HEMOGLOBIN A1C Routine 10/22/2024 10:14 AM EST Prediabetes Hyperlipidemia Hypothyroidism Osteoporosis THYROID STIMULATING HORMONE Routine 10/22/2024 10:14 AM EST Prediabetes Hyperlipidemia Hypothyroidism Osteoporosis DXA BONE DENSITY STUDY 1+ SITS AXIAL SKEL Routine 11/15/2022 3:07 PM EST Age-related osteoporosis without current pathological fracture from Last 3 Months or Most Recently Relevant to Health Maintenance Results * Lipid panel with reflex to direct LDL (10/22/2024 10:14 AM EST) [facility] Signature Cholesterol 164 0 - 200 mg/dL LAB CHEMISTRY METHOD 10/22/2024 1:40 PM EST [facility] Triglycerides 61 0 - 150 mg/dL LAB CHEMISTRY METHOD 10/22/2024 1:40 PM [facility] HDL 102 >=40 mg/dL LAB CHEMISTRY METHOD 10/22/2024 1:40 PM [facility] LDL Calculated 50 0 - 100 mg/dL LAB CHEMISTRY METHOD 10/22/2024 1:40 PM [facility] VLDL Cholesterol Faiza 12.2 mg/dL LAB CHEMISTRY METHOD 10/22/2024 1:40 PM [facility] Non HDL Chol. (LDL+VLDL) 62 <145 mg/dL LAB CHEMISTRY METHOD 10/22/2024 1:40 PM [facility] Chol/HDL Ratio 1.6 0.0 - 4.4 LAB CHEMISTRY METHOD 10/22/2024 1:40 PM [facility] Blood Venous blood specimen / Unknown Venipuncture / Unknown 10/22/2024 10:14 AM EST 10/22/2024 10:14 AM EST Renea WRIGHT LAB BLOOD ORDERABLES [facility] [address] [place] [address], * CBC auto differential (10/22/2024 10:14 AM EST) WBC 5.7 4.8 - 10.8 K/mcL LAB HEMETOLOGY METHOD 10/22/2024 12:20 PM [facility] RBC 4.20 3.80 - 4.80 M/mcL LAB HEMETOLOGY METHOD 10/22/2024 12:20 PM [facility] Hemoglobin 13.5 11.5 - 16.0 g/dL LAB HEMETOLOGY METHOD 10/22/2024 12:20 PM [facility] Hematocrit 41.2 35.0 - 47.0 % LAB HEMETOLOGY METHOD 10/22/2024 12:20 PM [facility] MCV 97.6 79.0 - 98.0 FL LAB HEMETOLOGY METHOD 10/22/2024 12:20 PM [facility] MCH 32.0 27.0 - 32.0 pcg LAB HEMETOLOGY METHOD 10/22/2024 12:20 PM [facility] MCHC 32.8 32.0 - 37.0 g/dL LAB HEMETOLOGY METHOD 10/22/2024 12:20 PM [facility] RDW 13.2 11.0 - 15.0 % LAB HEMETOLOGY METHOD 10/22/2024 12:20 PM [facility] Platelets 300 130 - 400 K/mcL LAB HEMETOLOGY METHOD 10/22/2024 12:20 PM [facility] MPV 10.4 7.0 - 11.0 FL LAB HEMETOLOGY METHOD 10/22/2024 12:20 PM [facility] NRBC 0.0 <1.0 % LAB HEMETOLOGY METHOD 10/22/2024 12:20 PM [facility] NRBC Absolute 0.00 <0.10 K/mcL LAB HEMETOLOGY METHOD 10/22/2024 12:20 PM [facility] Neutrophils Relative 50.4 % LAB HEMETOLOGY METHOD 10/22/2024 12:20 PM [facility] Lymphocytes Relative 35.9 % LAB HEMETOLOGY METHOD 10/22/2024 12:20 PM [facility] Monocytes Relative 11.4 % LAB HEMETOLOGY METHOD 10/22/2024 12:20 PM [facility] Eosinophils Relative 1.4 % LAB HEMETOLOGY METHOD 10/22/2024 12:20 PM [facility] Basophils Relative 0.5 % LAB HEMETOLOGY METHOD 10/22/2024 12:20 PM [facility] Immature Granulocytes Relative 0.4 % LAB HEMETOLOGY METHOD 10/22/2024 12:20 PM EST [facility] Neutrophils Absolute 2.86 1.50 - 7.00 K/mcL LAB HEMETOLOGY METHOD 10/22/2024 12:20 PM [facility] Lymphocytes Absolute 2.04 1.00 - 5.00 K/mcL LAB HEMETOLOGY METHOD 10/22/2024 12:20 PM [facility] Monocytes Absolute 0.65 0.20 - 1.00 K/mcL LAB HEMETOLOGY METHOD 10/22/2024 12:20 PM [facility] Eosinophils Absolute 0.08 0.00 - 0.50 K/mcL LAB HEMETOLOGY METHOD 10/22/2024 12:20 PM [facility] Basophils Absolute 0.03 0.00 - 0.20 K/mcL LAB HEMETOLOGY METHOD 10/22/2024 12:20 PM [facility] Immature Granulocytes Absolute 0.02 0.00 - 0.03 K/mcL LAB HEMETOLOGY METHOD 10/22/2024 12:20 PM [facility] Blood Venous blood specimen / Unknown Venipuncture / Unknown 10/22/2024 10:14 AM EST 10/22/2024 10:14 AM EST Renea WRIGHT LAB BLOOD ORDERABLES [facility] [address] [place] [address], * Microalbumin creatinine urine ratio (10/22/2024 10:14 AM EST) Creatinine, Urine 130.0 mg/dL LAB CHEMISTRY METHOD 10/22/2024 1:00 PM [facility] Microalb, Ur 13.5 0.0 - 29.0 mg/L LAB CHEMISTRY METHOD 10/22/2024 1:00 PM [facility] Microalb/Creat Ratio 10 <30 mg/g creat LAB CHEMISTRY METHOD 10/22/2024 1:00 PM EST [facility] Urine Urine specimen obtained by clean catch procedure / Unknown Non-blood Collection / Unknown 10/22/2024 10:14 AM EST 10/22/2024 10:14 AM EST Renea WRIGHT LAB URINE ORDERABLES [facility] [address] [place] [address], [place] [phone] * Vitamin D 25 hydroxy (10/22/2024 10:14 AM EST) Vit D, 25-Hydroxy 38.6 30.0 - 80.0 ng/mL LAB CHEMISTRY METHOD 10/22/2024 1:05 PM EST [facility] Blood Venous blood specimen / Unknown Venipuncture / Unknown 10/22/2024 10:14 AM EST 10/22/2024 10:14 AM EST Renea WRIGHT LAB BLOOD ORDERABLES Performing Organization Address [facility]/ZIP Co de Phone Number [facility] [address] [place] [address], [place] [phone] * Thyroid stimulating hormone (10/22/2024 10:14 AM EST) TSH 2.16 0.40 - 4.00 mcIU/mL LAB CHEMISTRY METHOD 10/22/2024 1:05 PM EST [facility] Blood Venous blood specimen / Unknown Venipuncture / Unknown 10/22/2024 10:14 AM EST 10/22/2024 10:14 AM EST Renea WRIGHT LAB BLOOD ORDERABLES Performing Organization Address City/[facility]/ZIP Co de Phone Number [facility] [address] [place] [address], [place] [phone] * Hemoglobin A1c (10/22/2024 10:14 AM EST) [facility] Hemoglobin A1C 5.8 <6.5 % LAB CHEMISTRY METHOD 10/22/2024 2:17 PM [facility] Mean Bld Glu Estim. 120 mg/dL LAB CHEMISTRY METHOD 10/22/2024 2:17 PM [facility] Blood Venous blood specimen / Unknown Venipuncture / Unknown 10/22/2024 10:14 AM EST 10/22/2024 10:14 AM EST Renea WRIGHT LAB BLOOD ORDERABLES [facility] [address] [place] [address], * (ABNORMAL) Comprehensive metabolic panel (10/22/2024 10:14 AM EST) [facility] Sodium 132(L) 133 - 145 mmol/L LAB CHEMISTRY METHOD 10/22/2024 1:33 PM [facility] Potassium 4.1 3.5 - 5.5 mmol/L LAB CHEMISTRY METHOD 10/22/2024 1:33 PM [facility] Chloride 101 96 - 110 mmol/L LAB CHEMISTRY METHOD 10/22/2024 1:33 PM [facility] CO2 26 21 - 32 mmol/L LAB CHEMISTRY METHOD 10/22/2024 1:33 PM [facility] Anion Gap 5 3 - 11 LAB CHEMISTRY METHOD 10/22/2024 1:33 PM [facility] Glucose 97 70 - 100 mg/dL LAB CHEMISTRY METHOD 10/22/2024 1:33 PM [facility] BUN 18 5 - 25 mg/dL LAB CHEMISTRY METHOD 10/22/2024 1:33 PM [facility] Creatinine 0.85 0.50 - 1.10 mg/dL LAB CHEMISTRY METHOD 10/22/2024 1:33 PM [facility] eGFR 71 >=60 mL/min/1. 73m2 LAB CHEMISTRY METHOD 10/22/2024 1:33 PM [facility] Comment:Calculation based on the??Chronic Kidney Disease Epidemiology Collaboration (CKD-EPI) equation refit??without adjustment for race. BUN/Creatinine Ratio 21.2 LAB CHEMISTRY METHOD 10/22/2024 1:33 PM [facility] Calcium 9.5 8.5 - 10.5 mg/dL LAB CHEMISTRY METHOD 10/22/2024 1:33 PM [facility] AST (SGOT) 23 10 - 42 unit/L LAB CHEMISTRY METHOD 10/22/2024 1:33 PM [facility] ALT (SGPT) 24 10 - 60 unit/L LAB CHEMISTRY METHOD 10/22/2024 1:33 PM [facility] Alkaline Phosphatase 85 42 - 121 unit/L LAB CHEMISTRY METHOD 10/22/2024 1:33 PM [facility] Total Protein 7.2 6.0 - 8.0 g/dL LAB CHEMISTRY METHOD 10/22/2024 1:33 PM [facility] Albumin 3.9 3.2 - 5.0 g/dL LAB CHEMISTRY METHOD 10/22/2024 1:33 PM [facility] Total Bilirubin 0.7 0.0 - 1.4 mg/dL LAB CHEMISTRY METHOD 10/22/2024 1:33 PM [facility] Blood Venous blood specimen / Unknown Venipuncture / Unknown 10/22/2024 10:14 AM EST 10/22/2024 10:14 AM EST Renea WRIGHT LAB BLOOD ORDERABLES [facility] [address] [place], [place] [address] [phone] * DXA BONE DENSITY STUDY 1+ SITS AXIAL SKEL (11/15/2022 3:07 PM EST) Anatomical Region Laterality Modality Bone Densitometr y 11/01/2022 3:17 PM EST Narrative 11/15/2022 6:56 PM EST BONE DENSITY SCAN (DEXA): FINDINGS: Lumbar Spine T-score is -2.5. ?? (SD relative to 20-29 y/o adult) Z-score is -0.1. ??(SD relative to age matched peers) This is considered osteoporosis by WHO criteria. Left Hip T-score is -2.6. Z-score is -0.5. This is considered osteoporosis by WHO criteria. Comparison exam(s): As recent as 07/05/2020 and as far back as 03/12/2002. ??No statistically significant change in bone mineral density compared with 2020. IMPRESSION: IMPRESSION: ?? Osteoporosis by WHO criteria. The [facility] Department of Internal Medicine recommends using National Osteoporosis Foundation (NOF) guidelines in treatment decisions related to osteoporosis. NOF guidelines suggest considering treatment for postmenopausal women and men aged 50 or older presenting with the following: History of hip or vertebral fracture. T-score = -2.5 (DXA) at the femoral neck, total hip, or spine, after appropriate evaluation to exclude secondary causes. Low bone mass (T-score between -1.0 and -2.5 at the femoral neck or spine) AND a 10-year probability of a hip fracture = 3% OR a 10-year probability of a major osteoporosis-related fracture = 20% based on the [place]-adapted WHO algorithm Please note that all treatment decisions require clinical judgment and consideration of individual patient factors, including patient preferences, co-morbidities, previous drug use, risk factors not captured in the FRAX model (e.g., frailty, falls, vitamin D deficiency, increased bone turnover, interval significant decline in bone density) and possible under- or over-estimation of fracture risk by FRAX. Optional alternative screening schedule based on miki Peña., [facility] November 01, 2011 for patients with osteopenia (based on hip BMD T-score) is as follows: * ??advanced osteopenia (T scores -2.00 to -2.49), BMD testing every year * ??moderate osteopenia (T scores -1.50 to -1.99), BMD testing every 5 years mild osteopenia or normal BMD (T scores -1.50 and higher), BMD testing every 15 years Procedure Note Jojo León MD - 11/19/2023 BONE DENSITY SCAN (DEXA): FINDINGS: Lumbar Spine T-score is -2.5. (SD relative to 20-29 y/o adult) Z-score is -0.1. (SD relative to age matched peers) This is considered osteoporosis by WHO criteria. Left Hip T-score is -2.6. Z-score is -0.5. This is considered osteoporosis by WHO criteria. Comparison exam(s): As recent as 07/05/2020 and as far back as 03/12/2002.No statistically significant change in bone mineral density compared with 2020. IMPRESSION: IMPRESSION: Osteoporosis by WHO criteria. The [facility] Department of Internal Medicine recommendsusing National Osteoporosis Foundation (NOF) guidelines in treatment decisions related toosteoporosis. NOF guidelines suggest considering treatment for postmenopausal women and menaged 50 or older presenting with the following: History of hip or vertebral fracture. T-score = -2.5 (DXA) at the femoral neck, total hip, or spine, afterappropriate evaluation to exclude secondary causes. Low bone mass (T-score between -1.0 and -2.5 at the femoral neck or spine)AND a 10-year probability of a hip fracture = 3% OR a 10-year probability of a majorosteoporosis-related fracture = 20% based on the [place]-adapted WHO algorithm Please note that all treatment decisions require clinical judgment andconsideration of individual patient factors, including patient preferences, co- morbidities,previous drug use, risk factors not captured in the FRAX model (e.g., frailty, falls, vitaminD deficiency, increased bone turnover, interval significant decline in bone density) andpossible under- or over-estimation of fracture risk by FRAX. Optional alternative screening schedule based on miik Peña., [place] 2011 for patients with osteopenia (based on hip BMD T-score) is as follows: * advanced osteopenia (T scores -2.00 to -2.49), BMD testing every year * moderate osteopenia (T scores -1.50 to -1.99), BMD testing every 5years mild osteopenia or normal BMD (T scores -1.50 and higher), BMD testingevery 15 years Norma Conde MD IMG DXA PROCEDURES from Last 3 Months or Most Recently Relevant to Health Maintenance Care Teams Automobile Seat Cover Installer Relationship Specialty Start Date End Date Norma Conde MD [address] [place] [phone] PCP - General 09/27/1992
--- OUTSIDE RECORDS SUMMARY | 2024-11-13 13:09 | XMS_ITS | Encounter Summary ---
Author Organization [facility] Address [address] [place] [address] Care Team Providers Care Stone Spreader Operator Name Role Phone Norma Conde MD Primary Care Provider [phone] Reason for Visit * Reason Comments Blood Pressure Check Encounter Details Date Type Department Care Team ([facility] Contact Info) Description 11/09/2024 2:00 PM EST Office Visit Adult Medicine [facility] [address] [place] [address] Malika Clarke PA [address] [place] [address] Elevated blood pressure reading (Primary Dx); Need for hepatitis B vaccination Social History Tobacco Use Types Packs/Day Years [...] 13 11/09/2024 1:55 PM EST Oxygen Saturation - - Inhaled Oxygen Concentration - - Weight 57.4 kg (126 lb 9.6 oz) 11/09/2024 1:55 P M EST Height 167.6 cm (5' 6 ) 11/09/2024 1:55 PM EST Body Mass Index 20.43 11/09/2024 1:55 PM EST documented in this encounter Progress Notes * KYLE Fernandes - 11/09/2024 2:00 PM EST CHIEF COMPLAINT: Blood Pressure Check IDENTIFIER: Shelli Menchaca is a 79 y.o. old female. HPI: Patient presents to the office today for reevaluation of elevated blood pressure. She was checked in 23 minutes late. We did have an opening on the schedule that she was able to be moved into to be accommodated for visit today. During recent appointment with PCP BP was elevated, which was an outlier for her. She has been checking BP at home and notes that readings have been well- controlled. She left BP log at home although notes that systolic readings have been around 110-120. Diastolic readings have been around 50-60. She did bring her cuff in today which does appear adequately calibrated. Patient is volunteering at [facility] and notes that she has provided them with proof of MMR and varicella titers in addition to negative tuberculosis screening which she was able to getoff of our [employer] system. She was not showing immunity to hepatitis B and does not believe that she has ever had this done. She is needing immunization series. Is up-to-date on annual flu shot. Has received COVID-19 vaccination in the last 6 months. ROS: GENERAL: No malaise, significant weight loss or fever HEENT: No changes in hearing or vision, nose bleeds or other nasal problems RESPIRATORY: No cough, wheezing or shortness of breath CARDIOVASCULAR: No chest pain, leg swelling or palpitations GI: No abdominal discomfort, N/V, blood in stools or black stools MUSCULOSKELETAL: No joint pain or swelling SKIN: No lesions, rash or itching NEURO: No persistent headache, syncope, seizures, weakness or numbness PAST MEDICAL HISTORY: Patient Active Problem List Diagnosis Date Noted History of basal cell carcinoma 08/12/2024 Mild tricuspid regurgitation 10/16/2023 Hyperlipidemia 04/18/2023 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 Prediabetes 11/11/2019 PMR (polymyalgia rheumatica) (CMS/HCC) 11/10/2019 Spondylosis of cervical region without myelopathy or radiculopathy 11/24/2018 Age-related osteoporosis without current pathological fracture 01/01/2018 Temporal arteritis (CMS/HCC) 12/21/2015 Carotid stenosis 12/13/2015 NS (nuclear sclerosis) 01/07/2014 Allergic rhinitis 01/31/2009 Hypothyroidism 08/31/2006 Rosacea 08/31/2006 SOCIAL HISTORY: Social History Tobacco Use Smoking status: Never Smokeless tobacco: Never Substance Use Topics Alcohol use: Yes FAMILY HISTORY: Family Status Relation Name Status Mother at age 56 Father at age 89 Sister (Not Specified) Brother (Not Specified) MGM MGF PGM PGF Other first cousin Alive Neg Hx (Not Specified) No partnership data on file Family History Problem Relation Name Age of Onset COPD Mother age 56 Prostate cancer Father prostate cancer 89, diabetes, mycosis fungoides Emphysema Sister Prostate cancer Brother at 54 Other (Other: liver cancer) Maternal Grandmother age 63 Diabetes Paternal Grandmother age 62 Ovarian cancer Other first cousin 78 Breast cancer Neg Hx Colon cancer Neg Hx Uterine cancer Neg Hx Pancreatic cancer Neg Hx ACTIVE MEDICATIONS: Outpatient Medications Marked as Taking for the 11/09/24 encounter (Office Visit) with KYLE Fernandes Medication Sig Dispense Refill ascorbic acid (VITAMIN [...] (one) time each day. levothyroxine (SYNTHROID, LEVOTHROID) 88 mcg tablet Take 1 tablet (88 mcg total) by mouth 1 (one) time each day before breakfast. 90 each 0 LUTEIN-ZEAXANTHIN ORAL Take 1 capsule by mouth 1 (one) time each day. multivitamin with iron-minerals 9 mg iron/15 mL liquid Take 15 mL by mouth daily. predniSONE (DELTASONE) 1 mg tablet Take 4 tablets (4 mg total) by mouth 1 (one) time each day. sknasnxd-zzhh-kczbp-oreg-capry 100 mg-150 mg- 50 mg-150 mg capsule Take 1 capsule by mouth 1 (one) time each day. valACYclovir (VALTREX) 500 mg tablet Take 2 tablets (1,000 mg total) by mouth 1 (one) time each day. for 5 days ALLERGIES: Thimerosal and Sulfa (sulfonamide antibiotics) PHYSICAL EXAM: Blood pressure 119/56, pulse 66, temperature 36.1 ??C (96.9 ??F), temperature source Temporal, resp. rate 13, height 1.676 m (66 ), weight 57.4 kg (126 lb 9.6 oz). Body mass index is 20.43 kg/m??. BMI is 18.5 to 24.9 (within the normal range) and will be followed APPEARANCE: Alert and in no acute distress EYES: Conjunctiva and sclera normal HEART: RRR with normal S1 and S2, no murmurs LUNG: clear to auscultation EXTREMITIES: Extremities warm and well perfused without clubbing, cyanosis, or edema NEURO: Awake, alert and oriented x 3 SKIN: Skin color, texture, turgor normal. LABS: 12/11/2023 Measles, mumps, rubella titer: Positive Varicella titer: Positive QuantiFERON gold: Negative Hepatitis B surface antibody: Negative BP Readings from Last 5 Encounters: 11/09/24 119/56 10/26/24 (!) 161/54 08/10/24 134/52 07/20/24 98/68 05/28/24 132/70 IMPRESSION: 1. Elevated blood pressure reading 2. Need for hepatitis B vaccination PLAN: Blood pressure well-controlled in office today. Blood pressure readings well- controlled at home perpatient report though she did leave BP log at home. She did bring in her cuff which does appear adequately calibrated. She will continue with low-sodium diet and routine follow-up with our office. Hepatitis B immunization is administered by medical director staff. Patient is scheduled for subsequent visits for remaining series. Patient understands and agrees to plan. Patient will return to the office for routine care with PCP. Will contact the office sooner with any problems or concerns. Orders Placed This Encounter Procedures Hepatitis B (Hshbout-H-Sycbl, Recombivax HB-Adult) 19yo and older ADDITIONAL ORDERS: HEPATITIS B ([id number], RECOMBIVAX-ADULT) 19YO AND OLDER KYLE Fernandes on 11/09/2024 at 2:10 PM EST * Mackenzie Tan MA - 11/09/2024 2:00 PM EST The patient acknowledges that they will be receiving the Hepatitis B vaccine. yes Immunization tab reviewed to verify dating for Hepatitis B series: yes The following questions were reviewed with the patient: Female patients only: Denies . LMP confirmed yes. If , consult provider. Denies allergy or reaction to yeast, or previous Hepatitis B vaccine: yes Acknowledges reviewing the VIS for Hepatitis B vaccine (copy made available) yes Denies moderate or severe illness or fever of >100 degrees F: yes Agrees to wait in the office for 20 minutes after receiving the injection: yes Patient made aware to return if further dosing is needed to complete series: yes Hepatitis B vaccine administered IM. See Imm/Inj tab Electronically signed by: Mackenzie Tan MA 11/09/2024 2:21 PM EST documented in this encounter Plan of Treatment Upcoming Encounters Date Type Department Care Team (Late st Contact Info) Description 12/16/2024 2:30 PM EST Clinical Support Adult Medicine [place] - [address] [phone] 05/20/2025 1:50 PM EDT Appointment Radiology Department - [address] [phone] 05/20/2025 2:45 PM EDT Office Visit Adult Medicine [facility] - [address] [phone] Norma Conde MD [address] [place] [address] documented as of this encounter Visit Diagnoses Diagnosis Elevated blood pressure reading- Primary Elevated blood pressure reading without diagnosis of hypertension Need for hepatitis B vaccination Encounter for screening mammogram for breast cancer documented in this encounter Orders Immunization/Injection Count Last Ordered Date First Ordered Date HEPATITIS B ([id number] , RECOMBIVAX-ADULT) 19YO AND OLDER 1 11/09/2024 documented in this encounter Care Teams Stone Spreader Operator Relationship Specialty Start Date End Date Norma Conde MD [address] [place] [address] PCP - General 09/27/1992 documented as of this encounter
== END 2024-11-13 12:56 | disposition home or self-care (01) ==
LOC: HO.MAMMO 12:55
PROVIDERS: PCP Internal Medicine; Visit Provider Student in an Organized Health Care Education/Training Program
DX: M81.0 Age-related osteoporosis without current pathological fracture (principal)
CPT/HCPCS: 77080

== ENCOUNTER → 2024-11-13 13:00 | Outpatient (BNV) | payer MEDICARE, SELFPAY | PROVIDERS: PCP Internal Medicine; Visit Provider Radiology Diagnostic Radiology | DX: M85.89 Other specified disorders of bone density and structure, multiple sites (principal) | CPT/HCPCS: 77080 ==

== ENCOUNTER 2024-11-16 13:02 | Outpatient (REF) | payer MEDICARE, SELFPAY ==
[2024-11-16 13:27] LABS: MANUAL DIFF FLAG NO
[2024-11-16 13:51] LABS: Basophils Absolute Auto 0.1 X10*3/uL (0.0-0.2); Basophils Percent Auto 0.6 % (0-2); Eosinophils Absolute Auto 0.1 X10*3/uL (0.0-0.4); Eosinophils Percent Auto 1.2 % (0-4); Hematocrit 35.5 % (37.0-47.0); Imm Gran Abs Auto 0.03 X10*3/uL (0.00-0.03); Imm Gran Pct Auto 0.3 % (0.0-0.4); Lymphocytes Absolute Auto 2.1 X10*3/uL (1.2-4.9); Lymphocytes Percent Auto 23.9 % (20-40); Mean Corpuscular HGB Conc 33.8 g/dl (31.0-35.0); Mean Corpuscular Hemoglobin 32.5 pg (27.0-33.0); Mean Corpuscular Volume 96.2 fL (80.0-98.0); Mean Platelet Volume 10.2 fL (9.4-12.3); Monocytes Absolute Auto 0.7 X10*3/uL (0.1-1.2); Monocytes Percent Auto 8.6 % (2-11); Neutrophils Absolute Auto 5.7 x10*3/uL (2.0-8.3); Neutrophils Percent Auto 65.4 % (45-73); Platelet Count 277 X10*3/uL (160-400); Red Blood Count 3.69 X10*6/uL (4.20-5.50); White Blood Count 8.7 X10*3/uL (4.8-10.8)
--- OUTSIDE RECORDS SUMMARY | 2024-11-16 14:24 | XMS_ITS | Clinical Summary ---
Author Organization [address] Address [address] [place] [phone] Phone Care Team Providers Care Net Ui Developer Name Role Phone Norma Conde MD Primary Care Provider [phone] Allergies Active Allergy Reactions Criticality Noted Date [...] Take 15 mL by mouth daily. Active fsmgzemu-clgj-lic dz-agrh-iewnc 100 mg-150 mg- 50 mg-150 mg capsule [...] December 20, 2015 Recurrence 2023. Following with cigar head holer, Keyur Barfield MD Carotid stenosis 12/13/2015 Overview [...] 2:00 PM EST Office Visit Adult Medicine [address] [phone] Malika Clarke PA Elevated blood pressure reading (Primary Dx); Need for hepatitis B vaccination 11/06/2024 Telephone Adult [address] [phone] Malika Clarke PA hep series 10/26/2024 2:30 PM EST Office Visit Adult [address] [phone] Norma Conde MD Hypothyroidism due to acquired atrophy of thyroid (Primary Dx); Age-related osteoporosis without current pathological fracture; Prediabetes; Other hyperlipidemia; Temporal arteritis (CMS/HCC); Elevated blood pressure reading from Last 3 Months Immunizations Name Administration Dates Next Due COVID-19 (Pfizer/Comirnaty) 12yo and older 03/10/2024 Hepatitis B (Vudjlwi-D-Qrqcy , Recombivax HB-Adult) 19yo and older 11/09/2024 [...] 2:30 PM EST Clinical Support Adult Medicine [address] [phone] 05/20/2025 1:50 PM EDT Appointment Radiology Department - [address] [phone] 05/20/2025 2:45 PM EDT Office Visit Adult Medicine [facility] [address] [place], [place] [phone] Norma Conde MD [address] [place], [place] Health Maintenance Due Date Last Done [...] to direct LDL (10/22/2024 10:14 AM EST) [facility] Signature Cholesterol 164 0 - 200 mg/dL LAB CHEMISTRY METHOD 10/22/2024 1:40 PM EST [facility] Triglycerides 61 0 - 150 mg/dL LAB CHEMISTRY METHOD 10/22/2024 1:40 PM [facility] HDL 102 >=40 mg/dL LAB CHEMISTRY METHOD 10/22/2024 1:40 PM [facility] LDL Calculated 50 0 - 100 mg/dL LAB CHEMISTRY METHOD 10/22/2024 1:40 PM [facility] VLDL Cholesterol Faiza 12.2 mg/dL LAB CHEMISTRY METHOD 10/22/2024 1:40 PM [facility] Non HDL Chol. (LDL+VLDL) 62 <145 mg/dL LAB CHEMISTRY METHOD 10/22/2024 1:40 PM [facility] Chol/HDL Ratio 1.6 0.0 - 4.4 LAB CHEMISTRY METHOD 10/22/2024 1:40 PM [facility] Blood Venous blood specimen / Unknown Venipuncture / Unknown 10/22/2024 10:14 AM EST 10/22/2024 10:14 AM EST Renea WRIGHT LAB BLOOD ORDERABLES [facility] [address] [place] [address], * CBC auto differential (10/22/2024 10:14 AM EST) WBC 5.7 4.8 - 10.8 K/mcL LAB HEMETOLOGY METHOD 10/22/2024 12:20 PM [facility] RBC 4.20 3.80 - 4.80 M/mcL LAB HEMETOLOGY METHOD 10/22/2024 12:20 PM [facility] Hemoglobin 13.5 11.5 - 16.0 g/dL LAB HEMETOLOGY METHOD 10/22/2024 12:20 PM [facility] Hematocrit 41.2 35.0 - 47.0 % LAB HEMETOLOGY METHOD 10/22/2024 12:20 PM [facility] MCV 97.6 79.0 - 98.0 FL LAB HEMETOLOGY METHOD 10/22/2024 12:20 PM [facility] MCH 32.0 27.0 - 32.0 pcg LAB HEMETOLOGY METHOD 10/22/2024 12:20 PM [facility] MCHC 32.8 32.0 - 37.0 g/dL LAB HEMETOLOGY METHOD 10/22/2024 12:20 PM [facility] RDW 13.2 11.0 - 15.0 % LAB HEMETOLOGY METHOD 10/22/2024 12:20 PM [facility] Platelets 300 130 - 400 K/mcL LAB HEMETOLOGY METHOD 10/22/2024 12:20 PM [facility] MPV 10.4 7.0 - 11.0 FL LAB HEMETOLOGY METHOD 10/22/2024 12:20 PM [facility] NRBC 0.0 <1.0 % LAB HEMETOLOGY METHOD 10/22/2024 12:20 PM [facility] NRBC Absolute 0.00 <0.10 K/mcL LAB HEMETOLOGY METHOD 10/22/2024 12:20 PM [facility] Neutrophils Relative 50.4 % LAB HEMETOLOGY METHOD 10/22/2024 12:20 PM [facility] Lymphocytes Relative 35.9 % LAB HEMETOLOGY METHOD 10/22/2024 12:20 PM [facility] Monocytes Relative 11.4 % LAB HEMETOLOGY METHOD 10/22/2024 12:20 PM [facility] Eosinophils Relative 1.4 % LAB HEMETOLOGY METHOD 10/22/2024 12:20 PM [facility] Basophils Relative 0.5 % LAB HEMETOLOGY METHOD 10/22/2024 12:20 PM [facility] Immature Granulocytes Relative 0.4 % LAB HEMETOLOGY METHOD 10/22/2024 12:20 PM EST [facility] Neutrophils Absolute 2.86 1.50 - 7.00 K/mcL LAB HEMETOLOGY METHOD 10/22/2024 12:20 PM [facility] Lymphocytes Absolute 2.04 1.00 - 5.00 K/mcL LAB HEMETOLOGY METHOD 10/22/2024 12:20 PM [facility] Monocytes Absolute 0.65 0.20 - 1.00 K/mcL LAB HEMETOLOGY METHOD 10/22/2024 12:20 PM [facility] Eosinophils Absolute 0.08 0.00 - 0.50 K/mcL LAB HEMETOLOGY METHOD 10/22/2024 12:20 PM [facility] Basophils Absolute 0.03 0.00 - 0.20 K/mcL LAB HEMETOLOGY METHOD 10/22/2024 12:20 PM [facility] Immature Granulocytes Absolute 0.02 0.00 - 0.03 K/mcL LAB HEMETOLOGY METHOD 10/22/2024 12:20 PM [facility] Blood Venous blood specimen / Unknown Venipuncture / Unknown 10/22/2024 10:14 AM EST 10/22/2024 10:14 AM EST Renea WRIGHT LAB BLOOD ORDERABLES [facility] [address] [place] [address], * Microalbumin creatinine urine ratio (10/22/2024 10:14 AM EST) Creatinine, Urine 130.0 mg/dL LAB CHEMISTRY METHOD 10/22/2024 1:00 PM [facility] Microalb, Ur 13.5 0.0 - 29.0 mg/L LAB CHEMISTRY METHOD 10/22/2024 1:00 PM [facility] Microalb/Creat Ratio 10 <30 mg/g creat LAB CHEMISTRY METHOD 10/22/2024 1:00 PM EST [facility] Urine Urine specimen obtained by clean catch procedure / Unknown Non-blood Collection / Unknown 10/22/2024 10:14 AM EST 10/22/2024 10:14 AM EST Renea WRIGHT LAB URINE ORDERABLES [facility] [address] [place] [address], [place] [phone] * Vitamin D 25 hydroxy (10/22/2024 10:14 AM EST) Vit D, 25-Hydroxy 38.6 30.0 - 80.0 ng/mL LAB CHEMISTRY METHOD 10/22/2024 1:05 PM EST [facility] Blood Venous blood specimen / Unknown Venipuncture / Unknown 10/22/2024 10:14 AM EST 10/22/2024 10:14 AM EST Renea WRIGHT LAB BLOOD ORDERABLES Performing Organization Address [facility]/ZIP Co de Phone Number [facility] [address] [place] [address], [place] [phone] * Thyroid stimulating hormone (10/22/2024 10:14 AM EST) TSH 2.16 0.40 - 4.00 mcIU/mL LAB CHEMISTRY METHOD 10/22/2024 1:05 PM EST [facility] Blood Venous blood specimen / Unknown Venipuncture / Unknown 10/22/2024 10:14 AM EST 10/22/2024 10:14 AM EST Renea WRIGHT LAB BLOOD ORDERABLES Performing Organization Address City/[facility]/ZIP Co de Phone Number [facility] [address] [place] [address], [place] [phone] * Hemoglobin A1c (10/22/2024 10:14 AM EST) [facility] Hemoglobin A1C 5.8 <6.5 % LAB CHEMISTRY METHOD 10/22/2024 2:17 PM [facility] Mean Bld Glu Estim. 120 mg/dL LAB CHEMISTRY METHOD 10/22/2024 2:17 PM [facility] Blood Venous blood specimen / Unknown Venipuncture / Unknown 10/22/2024 10:14 AM EST 10/22/2024 10:14 AM EST Renea WRIGHT LAB BLOOD ORDERABLES [facility] [address] [place] [address], * (ABNORMAL) Comprehensive metabolic panel (10/22/2024 10:14 AM EST) [facility] Sodium 132(L) 133 - 145 mmol/L LAB CHEMISTRY METHOD 10/22/2024 1:33 PM [facility] Potassium 4.1 3.5 - 5.5 mmol/L LAB CHEMISTRY METHOD 10/22/2024 1:33 PM [facility] Chloride 101 96 - 110 mmol/L LAB CHEMISTRY METHOD 10/22/2024 1:33 PM [facility] CO2 26 21 - 32 mmol/L LAB CHEMISTRY METHOD 10/22/2024 1:33 PM [facility] Anion Gap 5 3 - 11 LAB CHEMISTRY METHOD 10/22/2024 1:33 PM [facility] Glucose 97 70 - 100 mg/dL LAB CHEMISTRY METHOD 10/22/2024 1:33 PM [facility] BUN 18 5 - 25 mg/dL LAB CHEMISTRY METHOD 10/22/2024 1:33 PM [facility] Creatinine 0.85 0.50 - 1.10 mg/dL LAB CHEMISTRY METHOD 10/22/2024 1:33 PM [facility] eGFR 71 >=60 mL/min/1. 73m2 LAB CHEMISTRY METHOD 10/22/2024 1:33 PM [facility] Comment:Calculation based on the??Chronic Kidney Disease Epidemiology Collaboration (CKD-EPI) equation refit??without adjustment for race. BUN/Creatinine Ratio 21.2 LAB CHEMISTRY METHOD 10/22/2024 1:33 PM [facility] Calcium 9.5 8.5 - 10.5 mg/dL LAB CHEMISTRY METHOD 10/22/2024 1:33 PM [facility] AST (SGOT) 23 10 - 42 unit/L LAB CHEMISTRY METHOD 10/22/2024 1:33 PM [facility] ALT (SGPT) 24 10 - 60 unit/L LAB CHEMISTRY METHOD 10/22/2024 1:33 PM [facility] Alkaline Phosphatase 85 42 - 121 unit/L LAB CHEMISTRY METHOD 10/22/2024 1:33 PM [facility] Total Protein 7.2 6.0 - 8.0 g/dL LAB CHEMISTRY METHOD 10/22/2024 1:33 PM [facility] Albumin 3.9 3.2 - 5.0 g/dL LAB CHEMISTRY METHOD 10/22/2024 1:33 PM [facility] Total Bilirubin 0.7 0.0 - 1.4 mg/dL LAB CHEMISTRY METHOD 10/22/2024 1:33 PM [facility] Blood Venous blood specimen / Unknown Venipuncture / Unknown 10/22/2024 10:14 AM EST 10/22/2024 10:14 AM EST Renea WRIGHT LAB BLOOD ORDERABLES [facility] [address] [place], [place] [address] [phone] * DXA BONE DENSITY STUDY 1+ SITS [...] IMPRESSION: ?? Osteoporosis by WHO criteria. [facility] Department of Internal Medicine recommends using [...] alternative screening schedule based on miki Peña., [facility] November 01, 2011 for patients with osteopenia [...] IMPRESSION: IMPRESSION: Osteoporosis by WHO criteria. [facility] Department of Internal Medicine recommendsusing National [...] alternative screening schedule based on miki Peña., [place] 2011 for patients with osteopenia [...] Recently Relevant to Health Maintenance Care Teams Net Ui Developer Relationship Specialty Start Date End Date Norma Conde MD [address] [place] [id number] PCP - General 09/27/1992
--- OUTSIDE RECORDS SUMMARY | 2024-11-16 14:24 | XMS_ITS | Encounter Summary ---
Author Organization [facility] Address [address] [place] [address] Care Team Providers Care Specialty Sales Consultant Name Role Phone Norma Conde MD Primary Care Provider [phone] Reason for Visit * Reason Onset Date Comments hep series 11/06/2024 Encounter Details Date Type Department Care Team ([facility] st Contact Info) Description 11/06/2024 Telephone Adult Medicine [facility] [address] [place] [phone] Malika Clarke PA [address] [place] [address] hep series Social History Tobacco Use Types [...] KYLE Fernandes - 11/06/2024 4:50 PM EST Newsbound message sent to pt. * Felipa Delgado - 11/06/2024 4:42 PM EST Patient will be seeing Malika on Saturday for a 2wk hypertension follow up. States that she will be volunteering at [facility] and needs to have hep b [...] 2:30 PM EST Clinical Support Adult Medicine [address] [phone] 05/20/2025 1:50 PM EDT Appointment Radiology Department - [address] [phone] 05/20/2025 2:45 PM EDT Office Visit Adult Medicine [address] [phone] Norma Conde MD [address] [place] [address] documented as of this encounter Visit Diagnoses Not on filedocumented in this encounter Care Teams Specialty Sales Consultant Relationship Specialty Start Date End Date Norma Conde MD [address] [place] [address] PCP - General 09/27/1992 documented as of this encounter
--- OUTSIDE RECORDS SUMMARY | 2024-11-16 14:24 | XMS_ITS | Encounter Summary ---
Author Organization [facility] Address [address] [place] [address] Care Team Providers Care Epic Prelude Analyst Name Role Phone Norma Conde MD Primary Care Provider [phone] Reason for Visit * Reason Comments Blood Pressure Check Encounter Details Date Type Department Care Team ([facility] Contact Info) Description 11/09/2024 2:00 PM EST Office Visit Adult Medicine [facility] [address] [place] [address] Malika Clarke PA [address] [place] [address] Elevated blood pressure reading (Primary Dx); Need [...] appear adequately calibrated. Patient is volunteering at [facility] and notes that she has provided them with proof of MMR and varicella titers in addition to negative tuberculosis screening which she was able to getoff of our [employer] system. She was not showing immunity to [...] by mouth 1 (one) time each day. fqkmvaiu-qtuf-nhyfj-oreg-capry 100 mg-150 mg- 50 mg-150 mg capsule [...] office. Hepatitis B immunization is administered by registered medical assistant staff. Patient is scheduled for subsequent visits for remaining series. Patient understands and agrees to plan. Patient will return to the office for routine care with PCP. Will contact the office sooner with any problems or concerns. Orders Placed This Encounter Procedures Hepatitis B (Jupdorw-P-Lfopu, Recombivax HB-Adult) 19yo and older ADDITIONAL ORDERS: HEPATITIS B ([id number]-L-[id number], RECOMBIVAX-ADULT) 19YO AND OLDER KYLE Fernandes on [...] 2:30 PM EST Clinical Support Adult Medicine [place] - [address] [phone] 05/20/2025 1:50 PM EDT Appointment Radiology Department - [address] [phone] 05/20/2025 2:45 PM EDT Office Visit Adult Medicine [facility] - [address] [phone] Norma Conde MD [address] [place] [address] documented as of this encounter Visit Diagnoses Diagnosis Elevated blood pressure reading- Primary Elevated blood pressure reading without diagnosis of hypertension Need for hepatitis B vaccination Encounter for screening mammogram for breast cancer documented in this encounter Orders Immunization/Injection Count Last Ordered Date First Ordered Date HEPATITIS B ([id number]-L-ZPBNC , RECOMBIVAX-ADULT) 19YO AND OLDER 1 11/09/2024 documented in this encounter Care Teams Epic Prelude Analyst Relationship Specialty Start Date End Date Norma Conde MD [address] [place] [address] PCP - General [birth year]/27/1992 documented as of this encounter
--- OUTSIDE RECORDS SUMMARY | 2024-11-16 14:24 | XMS_ITS | Encounter Summary ---
Author Organization [facility] Address [address] [place] [address] Care Team Providers Care Casino Accountant Name Role Phone Norma Conde MD Primary Care Provider [phone] Reason for Visit * Reason Comments Hyperlipidemia Hypothyroidism Follow-up 6 MO Encounter Details Date Type Department Care Team ([facility] Contact Info) Description 10/26/2024 2:30 PM EST Office Visit Adult Medicine [address] [phone] Norma Conde MD [address] [place] [phone] Hypothyroidism due to acquired atrophy of thyroid [...] Prediabetes 11/11/2019 PMR (polymyalgia rheumatica) ([facility]) 11/10/2019 Spondylosis of cervical region without myelopathy or radiculopathy 11/24/2018 Age-related osteoporosis without current pathological fracture 01/01/2018 Temporal arteritis ([facility]) 12/21/2015 Carotid stenosis 12/13/2015 NS (nuclear sclerosis) [...] thyromegaly. Lungs clear with auscultation. Heart: regular [id number] murmur, rub or gallop. Abdomen soft, nontender, [...] 12/16/2024 2:30 PM EST Clinical Support Adult [address] [phone] 05/20/2025 1:50 PM EDT Appointment Radiology Department - [address] [phone] 05/20/2025 2:45 PM EDT Office Visit Adult [address] [phone] Norma Conde MD [address] [place] [address] documented as of this encounter Visit Diagnoses Diagnosis Hypothyroidism due to acquired atrophy of thyroid- Primary Age-related osteoporosis without current pathological fracture Prediabetes Other abnormal glucose Other hyperlipidemia Temporal arteritis (CMS/HCC) Giant cell arteritis Elevated blood pressure reading Elevated blood pressure reading without diagnosis of hypertension Encounter for screening mammogram for breast cancer documented in this encounter Care Teams Casino Accountant Relationship Specialty Start Date End Date Norma Conde MD [address] [place] [address] PCP - General 09/27/1992 documented as of this encounter
[2024-11-16 14:33] LABS: Erythrocyte Sedimentation Rate 38 MM/HR (0-20)
[2024-11-16 14:57] LABS: Alanine Aminotransferase 17 U/L (0-31); Anion Gap 10 (12-20); Aspartate Amino Transferase 26 U/L (5-31); Bilirubin Total 0.4 mg/dL (0.0-1.0); Blood Urea Nitrogen 21 mg/dL (9-16); C Reactive Protein 0.12 mg/dL (< or = 0.50); Carbon Dioxide 29 mmol/L (22-29); Chloride 102 mmol/L (96-108); Estimated Glomerular Filt Rate > 60; Glucose Random 95 mg/dL (60-115); Potassium 4.1 mmol/L (3.3-5.1); Sodium 137 mmol/L (135-145); Total Protein 7.2 g/dL (6.5-8.0)
[2024-11-16 15:35] LABS: Alkaline Phosphatase 75 U/L (39-117)
== END 2024-11-16 13:03 | disposition home or self-care (01) ==
LOC: HO.LAB 13:02
PROVIDERS: PCP Internal Medicine; Visit Provider Student in an Organized Health Care Education/Training Program
DX: M31.6 Other giant cell arteritis (principal)
CPT/HCPCS: 36415; 80053; 85025; 85652; 86140

== ENCOUNTER → 2024-11-18 14:57 | Outpatient (BNVA) | payer MEDICARE, SELFPAY | PROVIDERS: PCP Internal Medicine; Visit Provider Student in an Organized Health Care Education/Training Program | DX: M31.6 Other giant cell arteritis (principal); M81.0 Age-related osteoporosis without current pathological fracture | CPT/HCPCS: 99212 ==

== ENCOUNTER 2025-03-25 12:31 | Outpatient (REF) | payer MEDICARE, SELFPAY ==
[2025-03-25 13:39] LABS: MANUAL DIFF FLAG NO
[2025-03-25 14:33] LABS: Basophils Absolute Auto 0.1 X10*3/uL (0.0-0.2); Basophils Percent Auto 0.8 % (0-2); Eosinophils Absolute Auto 0.1 X10*3/uL (0.0-0.4); Hematocrit 38.3 % (37.0-47.0); Hemoglobin 12.8 g/dl (12.0-16.0); Imm Gran Abs Auto 0.02 X10*3/uL (0.00-0.03); Imm Gran Pct Auto 0.3 % (0.0-0.4); Lymphocytes Absolute Auto 2.4 X10*3/uL (1.2-4.9); Lymphocytes Percent Auto 32.5 % (20-40); Mean Corpuscular HGB Conc 33.4 g/dl (31.0-35.0); Mean Corpuscular Hemoglobin 32.1 pg (27.0-33.0); Mean Platelet Volume 10.2 fL (9.4-12.3); Monocytes Absolute Auto 0.8 X10*3/uL (0.1-1.2); Monocytes Percent Auto 11.4 % (2-11); Platelet Count 277 X10*3/uL (160-400); Red Blood Count 3.99 X10*6/uL (4.20-5.50); Red Cell Distribution Width 13.2 % (11.0-16.0); White Blood Count 7.4 X10*3/uL (4.8-10.8)
[2025-03-25 15:02] LABS: Alanine Aminotransferase 23 U/L (0-31); Albumin Level 4.4 g/dL (3.5-5.0); Alkaline Phosphatase 78 U/L (39-117); Anion Gap 11 (12-20); Aspartate Amino Transferase 27 U/L (5-31); Bilirubin Total 0.4 mg/dL (0.0-1.0); Blood Urea Nitrogen 27 mg/dL (9-16); C Reactive Protein 0.14 mg/dL (< or = 0.50); Carbon Dioxide 29 mmol/L (22-29); Chloride 101 mmol/L (96-108); Estimated Glomerular Filt Rate > 60; Glucose Random 89 mg/dL (60-115); Potassium 4.4 mmol/L (3.3-5.1); Sodium 137 mmol/L (135-145)
[2025-03-25 15:11] LABS: Erythrocyte Sedimentation Rate 22 MM/HR (0-20); Vitamin D 25-OH Total 60.8 ng/mL (>30)
== END 2025-03-25 12:32 | disposition home or self-care (01) ==
LOC: HO.LAB 12:31
PROVIDERS: PCP Internal Medicine; Visit Provider Student in an Organized Health Care Education/Training Program
DX: M31.6 Other giant cell arteritis (principal); E55.9 Vitamin D deficiency, unspecified
CPT/HCPCS: 36415; 80053; 82306; 85025; 85652; 86140; 99212

== ENCOUNTER 2025-03-25 12:31 | Outpatient (AMB) | payer MEDICARE, SELFPAY ==
[2025-03-25 12:33] VITALS: BP 110/56; PULSE 57; O2SAT 100; BMI 19.9
--- NOTE | 2025-03-25 12:33 | A.OFFVIS_ITS ---
Vital Signs 03/25/25 12:33 Height 5 ft 6 in Weight 123 lb BMI 19.9 BP 110/56 L Blood Pressure Location Lt brachial Position Sitting Pulse 57 Pulse Source Pulse Oximeter Pulse Oximetry (%) 100 Oxygen Delivery Method Room Air Intake Visit Reasons: PMR Intake Note: Patient presents for follow up on PMR today. Allergies Sulfa (Sulfonamide Antibiotics) [SULFA (SULFONAMIDE ANTIBIOTICS)] Allergy (Unknown, Verified 03/25/25 12:36) RASH thimerosal [THIMEROSAL] Allergy (Unknown, Verified 03/25/25 12:36) EYE RASH sulfa Allergy (Mild, Uncoded 03/25/25 12:36) Rash Thimerosal Allergy (Mild, Uncoded 03/25/25 12:36) Rash Medication List - Last Reconciled 03/25/25 by Lucinda Gray MD aspirin (Adult Aspirin Regimen) 81 mg PO DAILY atorvastatin 10 mg PO DAILY calcium carbonate (Calcium 600) 600 mg PO BID levothyroxine 100 mcg PO HPI Comments Details: Patient is a 79-year-old female with hyperlipidemia, hypothyroidism who is here today for follow up of GCA Interval History: Last seen 11/18/24 with me. At that time she was slowly tapering her prednisone without return of symptoms. Plan was for her to taper prednisone further from 4 weeks and then stop Patient was able to stop her prednisone without any new or worsening symptoms Rheumatologic History: 2014. Biopsy-proven GCA Initial history: This is a 78-year-old female with history of temporal arteritis who presents as a new patient. Symptoms started in 2014 with mild right-sided headaches associated with jaw and tongue claudication. Eventually she had a right temporal artery biopsy which was consistent with temporal arteritis. She states that she has a diagnosis of ocular migraines for many years before that. Patient was evaluated by Dr. Ya at [place] and was on prednisone until 11/2020. Last February patient started having right scalp sensitivity. She would have some temporal area sensitivity and discomfort whenever she palpates the area. At [place], her CRP was elevated and she was started on prednisone for 2 weeks. She stated that prednisone did not help her scalp sensitivity much. She denies having any new visual symptoms. She denies any fevers, morning stiffness, swollen joints, weight loss. Denies any history of DVT/PE. She is unaware of any family history of an autoimmune rheumatic disease. Current Rheumatology Medication(s): [facility] Medical History Ocular migraine Nuclear sclerosis Genital HSV Prediabetes Osteoporosis without pathological fracture Wrist fracture PMR (polymyalgia rheumatica) Temporal arteritis Carotid stenosis Basal cell carcinoma Rosacea Hypothyroidism Allergic rhinitis Surgical History Cataract extraction status of left eye H/O wrist surgery History of neck surgery Hx of cataract surgery Family History Mother Emphysema/COPD Father Prostate cancer Sister Emphysema/COPD Social History Household Members: Spouse Housing: House Alcohol intake: current Comment: Occassionally Patient Tobacco Use Status: Never used Tobacco Female Reproductive History Menstrual Age of Menarche: 15 Review of Systems Const Details: Review of Systems Constitutional: Denies fever, chills, weight loss ENT: Denies vision changes, eye pain or eye redness, dental caries, dry mouth GI: Denies nausea, vomiting, diarrhea, abdominal pain, change in BM Pulm: Denies SOB, MCGRATH, hemoptysis, wheezing Cards: Denies chest pain, palpitations Skin: Denies Raynaud's, rash, nail changes, photosensitivity, TELECOM FIELD TECHNICIAN: Denies headaches, weakness, paresthesias, recurrent falls MSK: as per HPI All other systems reviewed and are unremarkable except noted above Physical Exam Vital Signs: Last Vital Signs Pulse 57 03/25/25 12:33 BP 110/56 L 03/25/25 12:33 Pulse Ox 100 03/25/25 12:33 Oxygen Delivery Method Room Air 03/25/25 12:33 BMI result Body Mass Index 19.9 Vital signs reviewed Physical Examination CONSTITUITIONAL Patient alert and cooperative. Well appearing and in no apparent painful distress HEENT Conjunctiva and sclera clear. ?Pupils equal round and reactive to light. ?No lymphadenopathy. ? No TMJ tenderness to palpation Normal temporal artery pulse on the left absent on the right (previous biopsy site) CHEST/RESPIRATORY SYSTEM Normal respiratory effort and able to speak in complete sentences. ?Clear to auscultation bilaterally. ?No crackles, rales, rhonchi, wheezes heard. CARDIAC SYSTEM Regular rate and rhythm. ?S1 and S2 heard no murmurs. ?Radial pulses intact bilaterally MSK Hands: ?Good bark tanner strength bilaterally. No deformities noted. ?No synovitis noted to the MCPs, PIPs or DIPs. ?No tenderness to palpation of these joints. Wrists: ?Full range of motion at the wrists without pain. ?No tenderness to palpation or synovitis noted to the wrists. Elbows: Full range of motion without pain. No tenderness, weakness, swelling, increased warmth or erythema. Shoulders: Full range of motion without pain. No tenderness, weakness, swelling, increased warmth or erythema. Knees: ?Full range of motion. ?No tenderness, swelling, increased warmth or erythema.?No effusion. Crepitations felt Ankles: Full range of motion. ?No tenderness, swelling, increased warmth or erythema.? Feet: ?Negative squeeze test. ?No tenderness to palpation or swelling of the MTPs. Tender points:?No tenderness to palpation of the bilateral trapezius, supraspinatus, greater trochanters, anterior costochondral junctions, bilateral gluteal areas, bilateral suboccipital muscle insertions SKIN Skin intact without rashes. Results Reviewed Results Reviewed: Laboratory Tests 09/29/24 11/16/24 13:48 13:26 WBC 8.7 RBC 3.69 L Hgb 12.0 Hct 35.5 L Plt Count 277 ESR 18 38 H Sodium 137 Potassium 4.1 Chloride 102 Carbon Dioxide 29 Creatinine 0.77 Total Bilirubin 0.4 AST 26 ALT 17 Alkaline Phosphatase 75 C-Reactive Protein 0.12 DEXA 11/13/24 FINDINGS: The bone mineral density of the lumbar spine is 0.902 with a T-score of -2.3, and a Z-score of -0.2. The bone mineral density of the left total hip is 0.682 with a T-score of -2.6, and a Z-score of -0.5. The bone mineral density of the left femoral neck is 0.765 with a T-score of -2.0, and a Z-score of 0.2. Assessment & Plan Assessment & Plan (1) Temporal arteritis: Comment: September 2015: Headaches, neurologic and ocular symptoms; positive TA biopsy December 20, 2015 PDN tapered off 11/2020 Mild flare prednisone restarted 05/2024 Code(s): M31.6 - Other giant cell arteritis Category: Medical Plan: #GCA Patient is a 79-year-old female with biopsy-proven GCA here today for follow up. Currently in remission and tapered off her steroids. We will continue to monitor her off steroids. Plan - Monitor off steroids - Labs today: CBC, CMP, ESR, CRP - RTC 6 months - Labs before next visit: CBC, CMP, ESR, CRP (2) Osteoporosis without pathological fracture: Comment: DEXA 11/13/24: AP Spine -2.3, Left femur neck -2.0, Left femur total -2.6 Alendronate started 12/2017- 2020 Both wrists were fractured, 1 in 2016 and the other in 2018 Code(s): M81.0 - Age-related osteoporosis without current pathological fracture Category: Medical Plan: #Osteoporosis Patient with osteoporosis. Discussed recommencing treatment and patient is in agreement Plan - Alendronate 70mg weekly - continue calcium and vitamin-D - follow up previous DEXA scan Plan I spent 30 minutes reviewing the record and labs, taking a history, examining the patient, discussing the treatment plan and documenting in the medical record Orders: Orders Complete Blood Count Auto Diff 6 Months M31.6 - Other giant cell arteritis Comprehensive Met. Panel 6 Months M31.6 - Other giant cell arteritis C Reactive Protein 6 Months M31.6 - Other giant cell arteritis Erythrocyte Sedimentation Rate 6 Months M31.6 - Other giant cell arteritis C Reactive Protein Today M31.6 - Other giant cell arteritis Erythrocyte Sedimentation Rate Today M31.6 - Other giant cell arteritis Vitamin D 25-OH Total 6 Months E55.9 - Vitamin D deficiency, unspecified Vitamin D 25-OH Total Today E55.9 - Vitamin D deficiency, unspecified Complete Blood Count Auto Diff Today M31.6 - Other giant cell arteritis Comprehensive Met. Panel Today M31.6 - Other giant cell arteritis Medications: New alendronate 70 mg PO QWEEK 90 days 13 tabs 1RF M81.0 - Age-related osteoporosis without current pathological fracture Coding Level of Care Code Est Pt Level 4 (73430) Complex EM visit Add On G2211 Diagnoses Temporal arteritis M31.6 Osteoporosis without pathological fracture M81.0
--- OUTSIDE RECORDS SUMMARY | 2025-03-25 14:26 | XMS_ITS | Clinical Summary ---
Author Organization [address] Address [address] [place] [phone] Phone Care Team Providers Care Construction Director Name Role Phone Norma Conde MD Primary Care Provider [phone] Allergies Active Allergy Reactions Criticality Noted Date Comments Sulfa (Sulfonamide Antibiotics) Rash 07/21/2022 Thimerosal Rash,Swelling,Unknow n Medium 09/10/2005 Eye solution, eyes were very red and irritated Medications ascorbic acid (VITAMIN C) 125 mg chewable tablet Chew 2 tablets (250 mg total) 1 (one) time each day. Active aspirin 81 mg EC tablet Take 1 tablet (81 mg total) by mouth 1 (one) time each day. Active cholecalciferol (VITAMIN D-3) 25 mcg (1,000 unit) tablet Take 1 tablet (1,000 Units total) by mouth 1 (one) time each day. Active glucosamine/dennis dr trevor garner (glucosamine-cho ndroitin) 1,500-1,200 mg/30 mL liquid Take by mouth 1 (one) time each day. Active multivitamin with iron-minerals 9 mg iron/15 mL liquid Take 15 mL by mouth daily. Active xtppmmsi-tuos-su viw-cwnt-ofrwo 100 mg-150 mg- 50 mg-150 mg capsule Take 1 capsule by mouth 1 (one) time each day. Active LUTEIN-ZEAXANTHI N ORAL Take 1 capsule by mouth 1 (one) time each day. Active calcium carbonate (OS-FAIZA) 1,250 mg (500 mg elemental calcium) tablet Take 2 tablets (2,500 mg total) by mouth 1 (one) time each day. Active atorvastatin (LIPITOR) 10 mg tablet TAKE 1 TABLET DAILY 90 tablet 1 5 Active valACYclovir (VALTREX) 500 mg tabletIndication s:Genital herpes simplex, unspecified site Take 2 tablets (1,000 mg total) by mouth 1 (one) time each day. for 5 days 10 tablet 1 5 Active vit C/vit E ac/selenium/gink go (MEMORY COMPLEX ORAL) Take 2 capsules by mouth 1 (one) time each day. Active acar/cyst/ALA/Q1 0/p.ser/brocc (BRAINSUSTAIN ORAL) Take 2 tablets by mouth 1 (one) time each day. Youthful Brain Active nut.tx.glucose intolerance (GLUCOSE SUPPORT 1.2 FAIZA ORAL) Take 2 capsules by mouth 1 (one) time each day. 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 No change with subsequent CT angiogram September 2016 as compared with MRA from December 2015. NS (nuclear sclerosis) 01/07/2014 Overview (08/12/2024): OU. Allergic rhinitis 01/31/2009 Hypothyroidism 08/31/2006 Resolved Problems Problem Noted Date Diagnosed Date Resolved Date Rosacea 08/31/2006 12/16/2024 Encounters Date Type Department Care Team Description 01/26/2025 10:15 AM EDT Office Visit Adult Medicine [address] [phone] Aixa Roberts NP Traveler's diarrhea (Primary Dx); Small intestinal bacterial overgrowth, unspecified 01/22/[address] [phone] Lisa Pelletier PA Drug / Alcohol Assessment 01/21/2025 3:00 PM EDT Consult [address] [phone] Lisa Pelletier PA Age-related osteoporosis without current pathological fracture (Primary Dx) from Last 3 Months Immunizations Name Administration Dates Next Due COVID-19 (Pfizer/Comirnaty) 12yo and older 03/10/2024 Hepatitis B (Uxvloyi-O-Fzond , Recombivax HB-Adult) 19yo and older 12/16/2024,11/09/2024 Influenza Quadravalent, 0.5m l (Fluad) 65yo and [...] Bilateral, gamaliel re,vertebral artery stenosis Temporal arteritis ([facility] V24, [facility] V28) 12/21/2015 Wrist fracture 07/30/2017 : 07/30 Spondylosis [...] drink = 0.6 oz pur e alcohol) Comments No Sex and Gender Information Value Date Recorded Sex Assigned at Not on file Legal Sex Female 9:39 AM EST Gender Identity Not on file Sexual Orientation Not on file Obstetrics History Last Filed Vital Signs Vital Sign Reading Time Taken Comments Blood Pressure 116/55 01/26/2025 10:26 AM EDT Pulse 63 01/26/2025 10:26 AM EDT Temperature 36.1 ??C (96.9 ??F) 01/26/2025 10:26 AM E DT Respiratory Rate 16 01/26/2025 10:26 AM EDT Oxygen Saturation 98% 01/26/2025 10:26 AM EDT Inhaled Oxygen Concentration - - Weight 56.2 kg (124 lb) 01/26/2025 10:26 AM EDT Height 167.6 cm (5' 6 ) 01/26/2025 10:26 AM EDT Body Mass Index 20.01 01/26/2025 10:26 AM EDT Plan of Treatment Upcoming Encounters Date Type Department Care Team ([facility] st Contact Info) Description 05/20/2025 1:50 PM EDT Appointment Radiology Department [address], [place] [phone] 05/20/2025 2:45 PM EDT Office Visit Adult Medicine [address] [phone] Norma Conde MD [address], [place] 06/16/2025 2:30 PM EDT Clinical Support Adult Medicine [address] [phone] Health Maintenance Due Date Last Done Comments RSV Immunization Adult Patients (1 - 1-dose 75+ series) 2022 12/04/2023 Medicare Annual Wellness Visit 09/22/2022 Social Influencers of Health Screening 09/22/2022 COVID-19 Vaccine ( season) 2024 06/25/2024, 03/10/2024, 07/18/2023, Additional history exists Depression Screening 04/23/2025 04/23/2024 Falls Risk Assessment 04/23/2025 04/23/2024 Hepatitis B Vaccines (3 of 3 - 19+ 3-dose series) 05/09/2025 12/16/2024, 11/09/2024 Cholesterol Screening (Lipid Panel) 10/22/2029 10/22/2024, 12/11/2023 DTaP,Tdap,and Td Vaccines (4 - Td or Tdap) 11/09/2031 11/09/2021, 08/09/2011, 03/22/2003 Osteoporosis Screening (Bone Density Screening) 11/15/2032 11/15/2022, 07/05/2020, 12/31/2017 Pneumococcal Vaccine: 50+ Years Completed 11/02/2015, 11/10/2012 Hepatitis C Screening [...] patient's age to complete this topic Meningococcal B Vaccine Aged Out No l onger eligible based on patient's age to complete this topic Varicella Vaccines Aged Out No longer eligible based on patient's age to complete this topic Procedures Procedure Name Priority Date/Time Associated Diagnosis Comments CALCIUM, URINE, 24H Routine 03/02/2025 1 2:55 PM EDT Age-related osteoporosis without current pathological fracture CREATININE, URINE, 24H Routine 12:55 PM EDT Age-related osteoporosis without current pathological fracture SD PROTEIN ELECTROPHORETIC FRACTIONATION & QUANTITATION SERUM Routine 03/02/2025 12:54 PM EDT Age-related osteoporosis without current pathological fracture PROTEIN, TOTAL Routine 03/02/2025 12:54 PM EDT Age-related osteoporosis without current pathological fracture GLIADIN ANTIBODIES, SERUM Routine 03/02/2025 12:54 PM EDT Age-related osteoporosis without current pathological fracture ENDOMYSIAL ANTIBODY, IGA Routine 025 12:54 PM EDT Age-related osteoporosis without current pathological fracture TISSUE TRANSGLUTAMINASE, IGA Routine 03/02/2025 12:54 PM EDT Age-related osteoporosis without current pathological fracture IMMUNOGLOBULIN IGA Routine 03/02/2025 12 :54 PM EDT Age-related osteoporosis without current pathological fracture PARATHYROID HORMONE INTACT Routine 03/02/2025 12:54 PM EDT Age-related osteoporosis without current pathological fracture BASIC METABOLIC PANEL Routine 03/02/2025 12:54 PM EDT Age-related osteoporosis without current pathological fracture VITAMIN D 25 HYDROXY Routine 03/02/2025 12:54 PM EDT Age-related osteoporosis without current pathological fracture PHOSPHORUS Routine 03/02/2025 12:54 PM EDT Age-related osteoporosis without current pathological fracture THYROID STIMULATING HORMONE WITH REFLEX TO FREE T4 AND FREE T3 Routine 03/02/2025 12:54 PM EDT Age-related osteoporosis without current pathological fracture PROTEIN ELECTROPHORESIS, SERUM Routine 03/02/2025 12:54 PM EDT Age-related osteoporosis without current pathological fracture IMMUNOGLOBULIN IGA Routine 03/02/2025 12 :54 PM EDT Age-related osteoporosis without current pathological fracture COLLAGEN TYPE 1, C-TELOPEPTIDE Routine 03/02/2025 12:54 PM EDT Age-related osteoporosis without current pathological fracture GASTROINTESTINAL PATHOGENS BY PCR Routine 01/26/2025 3:45 PM EDT Traveler's diarrhea Small intestinal bacterial overgrowth, unspecified COMPREHENSIVE METABOLIC PANEL Routine 01/26/2025 11:09 AM EDT Traveler's diarrhea MAGNESIUM Routine 01/26/2025 11:09 AM EDT Traveler's diarrhea LIPID PANEL WITH REFLEX TO DIRECT LDL Routine 10/22/2024 10:14 AM EST Prediabetes Hyperlipidemia Hypothyroidism Osteoporosis DXA BONE DENSITY STUDY 1+ SITS AXIAL SKEL Routine 11/15/2022 3:07 PM EST Age-related osteoporosis without current pathological fracture from Last 3 Months or Most Recently Relevant to Health Maintenance Results * Calcium, urine, 24H (03/02/2025 12:55 PM EDT) Calcium, Ur 13.0 mg/dL LAB CHEMISTRY METHOD 03/02/2025 3:05 PM EDT [facility] Calcium, 24H Urine 169 50 - 400 mg/24 hr LAB CHEMISTRY METHOD 03/02/2025 3:05 PM EDT [facility] Urine Volume 1,300 mL LAB CHEMISTRY METHOD 03/02/2025 3:05 PM EDT [facility] Collection Interval, Ur 24 hr LAB CHEMISTRY METHOD 03/02/2025 3:05 PM EDT [facility] Urine Urine specimen from urethra / Unknown Non-blood Collection / Unknown 03/02/2025 12:55 PM EDT 03/02/2025 12:56 PM EDT us Lisa WRIGHT LAB URINE ORDERABLES Final Result [facility] [address] [place] [address], * (ABNORMAL) Creatinine, urine, 24H (03/02/2025 12:55 PM EDT) Creatinine, Urine 58.0 mg/dL LAB CHEMISTRY METHOD 03/02/2025 3:05 PM T [facility] Creatinine, 24H Ur 754(L) 800 - 2,000 mg/24 Hr LAB CHEMISTRY METHOD 03/02[facility] Urine Volume 1,300 mL LAB CHEMISTRY METHOD 03/02/2025 3:05 PM T [facility] Collection Interval, Ur 24 hr LAB CHEMISTRY METHOD 03/02/2025 3:05 PM [facility] Urine Urine specimen from urethra / Unknown Non-blood Collection / Unknown 03/02/2025 12:55 PM EDT 03/02/2025 12:56 PM EDT us Lisa WRIGHT LAB URINE ORDERABLES Final Result Performing Organization Address [facility]/ZIP Co de Phone Number [facility] [address] [place] [address], [place] [phone] * PATHOLOGIST REVIEW PROTEIN ELECTROPHORESIS (03/02/2025 12:54 PM EDT) Pathologist Interpretation Christine Hopper MD 03/04/2025 1:48 PM EDT [facility] Blood Venous blood specimen / Unknown Venipuncture / Unknown 03/02/2025 12:54 PM EDT 03/02/2025 12:54 PM EDT Lisa WRIGHT LAB BLOOD ORDERABLES Final Result Performing Organization Address [facility] Co de Phone Number [facility] [address] [place] [address], [place] [phone] * Thyroid stimulating hormone with reflex to free t4 and free t3 (03/02/2025 12:54 PM EDT) Pathologist [facility] TSH 1.96 0.40 - 4.00 mcIU/mL LAB CHEMISTRY METHOD 03/02/2025 5:54 PM EDT [facility] Blood Venous blood specimen / Unknown Venipuncture / Unknown 03/02/2025 12:54 PM EDT 03/02/2025 12:54 PM EDT Lisa WRIGHT LAB BLOOD ORDERABLES Final Result Performing Organization Address [facility]/ZIP Co de Phone Number [facility] [address] [place] [address], [place] [phone] * Endomysial antibody, IgA (03/02/2025 12:54 PM EDT) Endomysial IgA Negative Negative 03/03/2025 11:25 AM EDT [facility] Blood Venous blood specimen / Unknown Venipuncture / Unknown 03/02/2025 12:54 PM EDT 03/02/2025 12:54 PM EDT Lisa WRIGHT LAB BLOOD ORDERABLES Final Result Performing Organization Address [facility]/ZIP Co de Phone Number [facility] [address] [place] [address], [place] [phone] * Collagen type 1, c-telopeptide (03/02/2025 12:54 PM EDT) Pathologist [facility] Collagen Type 1, C-Telopeptide (CTx) 277 pg/mL 03/05/2025 3:19 PM EDT [facility] Comment: Reference Range for Females Premenopausal ?121-747 ??pg/mL Postmenopausal ? 189-1003 pg/mL The assay and reference ranges were updated by the business relationship manager, with new methodology effective November 24, 2024. Providers should consider this when comparing measurements before and after November 24, 2024 in the same patient. Test performed at [facility], [address] , [place], [place] ??[address] ? [phone] Jada Mejía MD, PhD - Circulation Manager Blood Venous blood specimen / Unknown Venipuncture / Unknown 03/02/2025 12:54 PM EDT 03/02/2025 12:54 PM EDT Lisa WRIGHT LAB BLOOD ORDERABLES Final Result [facility] [address] [place] [address] * Gliadin antibodies, serum (03/02/2025 12:54 PM EDT) Pathologist [facility] Gliadin IgA 2 <20 units LAB CHEMISTRY METHOD 03/03/2025 1:07 PM EDT [facility] Gliadin IgG 1 <20 units LAB CHEMISTRY METHOD 03/03/2025 1:07 PM EDT [facility] Gliadin IgA Antibody Negative Negative LAB CHEMISTRY METHOD 03/03/2025 1:07 PM EDT [facility] Gliadin IgG Antibody Negative Negative LAB CHEMISTRY METHOD 03/03/2025 1:07 PM EDT [facility] Blood Venous blood specimen / Unknown Venipuncture / Unknown 03/02/2025 12:54 PM EDT 03/02/2025 12:54 PM EDT Lisa WRIGHT LAB BLOOD ORDERABLES Final Result Performing Organization Address [facility]/ZIP Co de Phone Number [facility] [address] [place] [address], [place] [phone] * Tissue transglutaminase, IgA (03/02/2025 12:54 PM EDT) Tissue Transglutaminase Ab, IgA Quant 1 <4 unit/mL LAB CHEMISTRY METHOD 03/03/2025 12:40 PM EDT [facility] Tissue Transglutaminase Ab, IgA Negative Negative LAB CHEMISTRY METHOD 03/03/2025 12:40 PM EDT [facility] Blood Venous blood specimen / Unknown Venipuncture / Unknown 03/02/2025 12:54 PM EDT 03/02/2025 12:54 PM EDT us Lisa WRIGHT LAB BLOOD ORDERABLES Final Result [facility] [address] [place] [address], [place] [phone] * Vitamin D 25 hydroxy (03/02/2025 12:54 PM EDT) Vit D, 25-Hydroxy 47.2 30.0 - 80.0 ng/mL LAB CHEMISTRY METHOD 03/02/2025 5:23 PM EDT [facility] Blood Venous blood specimen / Unknown Venipuncture / Unknown 03/02/2025 12:54 PM EDT 03/02/2025 12:54 PM EDT Lisa WRIGHT LAB BLOOD ORDERABLES Final Result Performing Organization Address City/[facility]/ZIP Co de Phone Number [facility] [address] [place] [address], [place] [phone] * Protein electrophoresis, serum (03/02/2025 12:54 PM EDT) Pathologist [facility] Total Protein 7.2 6.0 - 8.0 g/dL LAB CHEMISTRY METHOD 03/04/2025 1:48 PM EDT [facility] Albumin, Serum 3.9 2.9 - 4.1 g/dL LAB CHEMISTRY METHOD 03/04/2025 1:48 PM EDT [facility] Alpha 1 Globulin (g/dL) 0.2 0.1 - 0.5 g/dL LAB CHEMISTRY METHOD 03/04/2025 1:48 PM EDT [facility] Alpha 2 Globulin (g/dL) 1.1 0.7 - 1.5 g/dL LAB CHEMISTRY METHOD 03/04/2025 1:48 PM EDT [facility] Beta (g/dL) 1.0 0.7 - 1.5 g/dL LAB CHEMISTRY METHOD 03/04/2025 1:48 PM EDT [facility] Gamma Globulin (g/dL) 1.0 0.7 - 1.9 g/dL LAB CHEMISTRY METHOD 03/04/2025 1:48 PM EDT [facility] SPEP Interpretation Essentially normal pattern. No M-Lior seen. LAB CHEMISTRY METHOD 03/04/2025 1:48 PM EDT [facility] Blood Venous blood specimen / Unknown Venipuncture / Unknown 03/02/2025 12:54 PM EDT 03/02/2025 12:54 PM EDT Lisa WRIGHT LAB BLOOD ORDERABLES Final Result Performing Organization Address [facility]/ZIP Co de Phone Number [facility] [address] [place] [address], * Protein, total (03/02/2025 12:54 PM EDT) Total Protein 7.2 6.0 - 8.0 g/dL LAB CHEMISTRY METHOD 03/02/2025 4:37 PM EDT [facility] Blood Venous blood specimen / Unknown Venipuncture / Unknown 03/02/2025 12:54 PM EDT 03/02/2025 12:54 PM EDT Lisa WRIGHT LAB BLOOD ORDERABLES Final Result Performing Organization Address [facility] Co de Phone Number [facility] [address] [place] [address], * Phosphorus (03/02/2025 12:54 PM EDT) Phosphorus 4.5 2.5 - 4.5 mg/dL LAB CHEMISTRY METHOD 03/02/2025 4:49 PM EDT [facility] Blood Venous blood specimen / Unknown Venipuncture / Unknown 03/02/2025 12:54 PM EDT 03/02/2025 12:54 PM EDT Lisa WRIGHT LAB BLOOD ORDERABLES Final Result Performing Organization Address City/[facility]/ZIP Co de Phone Number [facility] [address] [place] [address], [place] [phone] * Parathyroid hormone intact (03/02/2025 12:54 PM EDT) PTH 46.4 18.5 - 88.0 pcg/mL LAB CHEMISTRY METHOD 03/02/2025 5:24 PM EDT [facility] Blood Venous blood specimen / Unknown Venipuncture / Unknown 03/02/2025 12:54 PM EDT 03/02/2025 12:54 PM EDT Lisa WRIGHT LAB BLOOD ORDERABLES Final Result Performing Organization Address City/[facility]/ZIP Co de Phone Number [facility] [address] [place] [address], [place] [phone] * Immunoglobulin IgA (03/02/2025 12:54 PM EDT) Pathologist [facility] IgA 111 61 - 348 mg/dL LAB CHEMISTRY METHOD 03/02/2025 4:49 PM EDT [facility] Blood Venous blood specimen / Unknown Venipuncture / Unknown 03/02/2025 12:54 PM EDT 03/02/2025 12:54 PM EDT Lisa WRIGHT LAB BLOOD ORDERABLES Final Result Performing Organization Address [facility]/ZIP Co de Phone Number [facility] [address] [place] [address], [place] [phone] * Basic metabolic panel (03/02/2025 12:54 PM EDT) [facility] Sodium 135 133 - 145 mmol/L LAB CHEMISTRY METHOD 03/02/2025 4:49 PM EDT [facility] Potassium 4.4 3.5 - 5.5 mmol/L LAB CHEMISTRY METHOD 03/02/2025 4:49 PM EDT [facility] Chloride 100 96 - 110 mmol/L LAB CHEMISTRY METHOD 03/02/2025 4:49 PM EDT [facility] CO2 29 21 - 32 mmol/L LAB CHEMISTRY METHOD 03/02/2025 4:49 PM EDT [facility] Anion Gap 6 3 - 11 LAB CHEMISTRY METHOD 03/02/2025 4:49 PM EDT [facility] Glucose 92 70 - 100 mg/dL LAB CHEMISTRY METHOD 03/02/2025 4:49 PM EDT [facility] BUN 24 5 - 25 mg/dL LAB CHEMISTRY METHOD 03/02/2025 4:49 PM EDT [facility] Creatinine 0.77 0.50 - 1.10 mg/dL LAB CHEMISTRY METHOD 03/02/2025 4:49 PM EDT [facility] eGFR 80 >=60 mL/min/1. 73m2 LAB CHEMISTRY METHOD 03/02/2025 4:49 PM EDT [facility] Comment:Calculation based on the Chronic Kidney Disease Epidemiology Collaboration (CKD-EPI) equation refit without adjustment for race. BUN/Creatinine Ratio 31.2 LAB CHEMISTRY METHOD 03/02/2025 4:49 PM EDT [facility] Calcium 9.7 8.5 - 10.5 mg/dL LAB CHEMISTRY METHOD 03/02/2025 4:49 PM EDT [facility] Blood Venous blood specimen / Unknown Venipuncture / Unknown 03/02/2025 12:54 PM EDT 03/02/2025 12:54 PM EDT us Lisa WRIGHT LAB BLOOD ORDERABLES Final Result [facility] [address] [place] [address], * Gastrointestinal pathogens molecular study (01/26/2025 3:45 PM EDT) Campylobacter Detection by PCR Not Detected Not Detected LAB MICROBIOLOGY METHOD 5 8:11 PM EDT [facility] Plesiomonas shigelloides Detection by PCR Not Detected Not Detected LAB MICROBIOLOGY METHOD 5 8:11 PM EDT [facility] Salmonella Detection by PCR Not Detected Not Detected LAB MICROBIOLOGY METHOD 5 8:11 PM EDT [facility] Vibrio Detection by PCR Not Detected Not Detected LAB MICROBIOLOGY METHOD 5 8:11 PM EDT [facility] Vibrio cholerae Detection by PCR Not Detected Not Detected LAB MICROBIOLOGY METHOD 5 8:11 PM EDT [facility] Yersinia enterocolitica Detection by PCR Not Detected Not Detected LAB MICROBIOLOGY METHOD 5 8:11 PM EDT [facility] Enteroaggregative E coli EAEC Detection by PCR Not Detected Not Detected LAB MICROBIOLOGY METHOD 5 8:11 PM EDT [facility] Enteropathogenic E coli EPEC Detection Not Detected Not Detected LAB MICROBIOLOGY METHOD 5 8:11 PM EDT [facility] Enterotoxigenic E coli ETEC LTST Detection Not Detected Not Detected LAB MICROBIOLOGY METHOD 5 8:11 PM EDT [facility] Shiga-like toxin producing E coli STEC STX1 STX2 Det Not Detected Not Detected LAB MICROBIOLOGY METHOD 5 8:11 PM EDT [facility] Shigella Enteroinvasive E coli EIEC Detection Not Detected Not Detected LAB MICROBIOLOGY METHOD 5 8:11 PM EDT [facility] Cryptosporidium Detection by PCR Not Detected Not Detected LAB MICROBIOLOGY METHOD 5 8:11 PM [facility] Cyclospora cayetanensis Detection by PCR Not Detected Not Detected LAB [facility]BIOLOGY [facility] 5 8:[facility] Entamoeba histolytica Detection by PCR Not Detected Not Detected LAB MICROBIOLOGY METHOD 5 8:11 PM EDT [facility] Giardia lamblia Detection by PCR Not Detected Not Detected LAB MICROBIOLOGY METHOD 5 8:11 PM EDT [facility] Adenovirus F 40 41 Detection by PCR Not Detected Not Detected LAB MICROBIOLOGY METHOD 5 8:[facility] Astrovirus Detection by PCR Not Detected Not Detected LAB MICROBIOLOGY METHOD 5 8:11 PM EDT [facility] Norovirus GI GII Detection by PCR Not Detected LAB MICROBIOLOGY METHOD 5 8:11 PM EDT [facility] Sapovirus Detection by PCR Not Detected Not Detected LAB MICROBIOLOGY METHOD 5 8:11 PM EDT [facility] Rotavirus A Detection by PCR Not Detected Not Detected LAB MICROBIOLOGY METHOD 5 8:11 PM EDT [facility] Stool Rectum structure / Unknown Non-blood Collection / Unknown 01/26/2025 3:45 PM EDT 01/26/2025 3:45 PM EDT Narrative [facility] - 01/26/2025 8:11 PM EDT PCR testing is much more sensitive than traditional techniques and allows for the detection of low numbers of stool pathogens. The clinical correlation of PCR results with the need for treatment and clinical outcomes has not been established. Therefore the results of PCR testing for stool pathogens must be taken into clinical context when making treatment decisions. This is a diagnostic test only, repeat testing for cure is not advised. You may consider infectious disease consult for additional guidance. ??Testing Performed by [facility] Aixa Roberts NP LAB MICROBIOLOGY - GENERAL O RDERABLES Final Result Performing Organization Address City/[facility]/ZIP Co de Phone Number [facility] [address] [place] [address], * Magnesium (01/26/2025 11:09 AM EDT) Magnesium 2.3 1.9 - 2.6 mg/dL LAB CHEMISTRY METHOD 01/26/2025 5:03 PM EDT [facility] Blood Venous blood specimen / Unknown Venipuncture / Unknown 01/26/2025 11:09 AM EDT 01/26/2025 11:09 AM EDT Aixa Roberts NP LAB BLOOD ORDERABLES Final R esult [facility] [address] [place] [address], * Comprehensive metabolic panel (01/26/2025 11:09 AM EDT) Sodium 136 133 - 145 mmol/L LAB CHEMISTRY METHOD 01/26/2025 5:07 PM [facility] Potassium 4.3 3.5 - 5.5 mmol/L LAB CHEMISTRY METHOD 01/26/2025 5:07 PM [facility] Chloride 103 96 - 110 mmol/L LAB CHEMISTRY METHOD 01/26/2025 5:07 PM [facility] CO2 30 21 - 32 mmol/L LAB CHEMISTRY METHOD 01/26/2025 5:07 PM [facility] Anion Gap 3 3 - 11 LAB CHEMISTRY METHOD 01/26/2025 5:07 PM [facility] Glucose 95 70 - 100 mg/dL LAB CHEMISTRY METHOD 01/26/2025 5:07 PM [facility] BUN 21 5 - 25 mg/dL LAB CHEMISTRY METHOD 01/26/2025 5:07 PM [facility] Creatinine 0.84 0.50 - 1.10 mg/dL LAB CHEMISTRY METHOD 01/26/2025 5:07 PM [facility] eGFR 72 >=60 mL/min/1. 73m2 LAB CHEMISTRY METHOD 01/26/2025 5:07 PM [facility] Comment:Calculation based on the??Chronic Kidney Disease Epidemiology Collaboration (CKD-EPI) equation refit??without adjustment for race. BUN/Creatinine Ratio 25.0 LAB CHEMISTRY METHOD 01/26/2025 5:07 PM [facility] Calcium 9.8 8.5 - 10.5 mg/dL LAB CHEMISTRY METHOD 01/26/2025 5:07 PM [facility] AST (SGOT) 28 10 - 42 unit/L LAB CHEMISTRY METHOD 01/26/2025 5:07 PM T [facility] ALT (SGPT) 28 10 - 60 unit/L LAB CHEMISTRY METHOD 01/26/2025 5:07 PM EDT [facility] Alkaline Phosphatase 94 42 - 121 unit/L LAB CHEMISTRY METHOD 01/26/2025 5:07 PM [facility] Total Protein 7.6 6.0 - 8.0 g/dL LAB CHEMISTRY METHOD 01/26/2025 5:07 PM [facility] Albumin 3.9 3.2 - 5.0 g/dL LAB CHEMISTRY METHOD 01/26/2025 5:07 PM [facility] Total Bilirubin 0.6 0.0 - 1.4 mg/dL LAB CHEMISTRY METHOD 01/26/2025 5:07 PM [facility] Blood Venous blood specimen / Unknown Venipuncture / Unknown 01/26/2025 11:09 AM EDT 01/26/2025 11:09 AM EDT us Aixa Roberts FLAME CUTTING MACHINE OPERATOR HELPER LAB BLOOD ORDERABLES Final R esult [facility] [address] [place] [address], * Lipid panel with reflex to direct LDL (10/22/2024 10:14 AM EST) Cholesterol 164 0 - 200 mg/dL LAB CHEMISTRY METHOD 10/22/2024 1:40 PM EST [facility] Triglycerides 61 0 - 150 mg/dL LAB CHEMISTRY METHOD 10/22/2024 1:40 PM [facility] HDL 102 >=40 mg/dL LAB CHEMISTRY METHOD 10/22/2024 1:40 PM [facility] LDL Calculated 50 0 - 100 mg/dL LAB CHEMISTRY METHOD 10/22/2024 1:40 PM [facility] VLDL Cholesterol Faiza 12.2 mg/dL LAB CHEMISTRY METHOD 10/22/2024 1:40 PM EST [facility] Non HDL Chol. (LDL+VLDL) 62 <145 mg/dL LAB CHEMISTRY METHOD 10/22/2024 1:40 PM EST [facility] Chol/HDL Ratio 1.6 0.0 - 4.4 LAB CHEMISTRY METHOD 10/22/2024 1:40 PM EST [facility] Blood Venous blood specimen / Unknown Venipuncture / Unknown 10/22/2024 10:14 AM EST 10/22/2024 10:14 AM EST us Renea WRIGHT LAB BLOOD ORDERABLES Final Re sult [facility] [address] [place] [address], * DXA BONE DENSITY STUDY 1+ SITS [...] change in bone mineral density compared with 2019. IMPRESSION: IMPRESSION: ?? Osteoporosis by WHO criteria. The [facility] Department of Internal Medicine recommends using [...] alternative screening schedule based on miki Peña., [facility] November 01, 2011 for patients with [...] IMPRESSION: IMPRESSION: Osteoporosis by WHO criteria. The [facility] Department of Internal Medicine recommendsusing National [...] alternative screening schedule based on miki Peña., [facility] for patients with osteopenia (based on hip BMD T-score) is as follows: * advanced osteopenia (T scores -2.00 to -2.49), BMD testing every year * moderate osteopenia (T scores -1.50 to -1.99), BMD testing every 5years mild osteopenia or normal BMD (T scores -1.50 and higher), BMD testingevery 15 years Norma Conde MD IMG DXA PROCEDURES Final Result from Last 3 Months or Most Recently Relevant to Health Maintenance Insurance BLUE CROSS - [place] MEDICARE ADVANTAGE Care Teams Construction Director Relationship Specialty Start Date End Date Norma Conde MD [address] [place] [address] [facility] - General 09/[birth year]/1992
== END 2025-03-25 13:19 | disposition home or self-care (01) ==
LOC: HO.RHE 12:31
PROVIDERS: PCP Internal Medicine; Visit Provider Student in an Organized Health Care Education/Training Program
DX: M31.6 Other giant cell arteritis (principal); M81.0 Age-related osteoporosis without current pathological fracture
CPT/HCPCS: 99214; G2211

== ENCOUNTER 2025-09-06 15:32 | Emergency (ER) | payer MEDICARE, SELFPAY ==
--- NOTE | 2025-09-06 | ECG_ITS ---
Test Reason : syncope Blood Pressure : */* mmHG Vent. Rate : 59 BPM Atrial Rate : 59 BPM P-R Int : 144 ms QRS Dur : 84 ms QT Int : 444 ms P-R-T Axes : 86 148 129 degrees QTcB Int : 439 ms Sinus bradycardia Lateral infarct , age undetermined Abnormal ECG No previous ECGs available Referred By: Jazmyne Chacon Electronically Signed By:
--- NOTE | ~2025-09-06 | CT_ITS ---
CLINICAL HISTORY: Fall Trauma CT head without contrast Comparison: None provided Findings: No intra-axial mass, midline shift, hydrocephalus, or acute hemorrhage. Heterogeneous low attenuation in the periventricular white matter. Mild cerebral atrophy. Left parietal encephalomalacia. There is no sinus or mastoid fluid. The orbits are within normal limits. There is no acute fracture. IMPRESSION: 1. Left parietal encephalomalacia. 2. Periventricular white matter hypodensities, likely chronic small vessel ischemic changes. 3. Mild cerebral atrophy. 4. No acute intracranial findings. This document has been electronically signed by: Herberth Scott MD on 09/06/2025 18:34:22
--- NOTE | ~2025-09-06 | CT_ITS ---
CLINICAL HISTORY: neck trauma CT cervical spine without contrast Comparison: None provided Findings: C3-4: Grade 1 anterolisthesis C3 over C4. No significant degenerative change. Mild osteopenia. Visualized intracranial contents are unremarkable. No cervical fluid collections or masses. No consolidation or effusion at the lung apices. C1-2: Mild anterior osteoarthrosis. C5-6: [id number] DJD. C6-7: Moderate DJD. IMPRESSION: 1. Grade 1 anterolisthesis of C3 over C4. 2. Moderate degenerative joint disease at C6-7. 3. Jzcq-[id number]-[id number] degenerative joint disease at C5-6. 4. Mild anterior osteoarthrosis at C1-2. 5. Mild osteopenia. 6. No acute osseous injury. This document has been electronically signed by: Herberth Scott MD on 09/06/2025 18:36:58
--- NOTE | ~2025-09-06 | XR_ITS ---
CLINICAL HISTORY: pain 3 views lumbar spine Comparison: None provided Findings: Normal alignment. Mild osteopenia. Wedge compression fracture superior endplate of the L2 vertebral body with less than 20% vertebral body height loss. No retropulsion identified. No significant degenerative change. IMPRESSION: 1. L2 vertebral body superior endplate wedge compression fracture with less than 20% height loss. 2. Mild osteopenia. This document has been electronically signed by: Herberth Scott MD on 09/06/2025 20:54:28
--- NOTE | ~2025-09-06 | XR_ITS ---
CLINICAL HISTORY: pain 2 view chest x-ray Comparison: None provided Findings: No consolidation or effusion. Normal size heart. No acute fracture. IMPRESSION: 1. No acute findings. This document has been electronically signed by: Herberth Scott MD on 09/06/2025 20:51:42
--- NOTE | ~2025-09-06 | XR_ITS ---
CLINICAL HISTORY: hip pain 1 view pelvis Comparison: None provided Findings: Mild osteopenia. Moderate narrowing and sclerosis of the left and right hip joint spaces. Soft tissues are unremarkable. No radiopaque foreign object identified. IMPRESSION: 1. Moderate bilateral hip osteoarthritis. 2. Mild osteopenia. 3. No acute osseous injury. This document has been electronically signed by: Herberth Scott MD on 09/06/2025 17:54:03
[2025-09-06 15:39] VITALS: BP 128/70; BP 137/74; PULSE 60; PULSE 64; RESP 16; TEMP 36.4; O2SAT 100; O2SAT 99; BMI 21.7
--- NOTE | 2025-09-06 15:43 | ED_ITS ---
HPI - General Adult General Chief complaint: Syncope Stated complaint: syncope, fall, +head strike Time Seen by Provider: 09/06/25 15:40 Source: patient Mode of arrival: ambulatory Limitations: no limitations History of Present Illness ED Provider: Dr. Chacon [facility] narrative: 80-year-old female presented hospital today after a syncopal episode. Patient was recently diagnosed with COVID has been sick for the past 3 or 4 days. Patient's stated that she had a syncopal episode and struck her head. She is complaining of some neck pain. It some hip pain. Denies any belly pain or chest pain at this time no pain in her extremities. Related Data Home Medications ?Medication ?Instructions ?Recorded ?Confirmed aspirin 81 mg tablet,delayed 81 mg PO DAILY 04/20/24 0 03/25/25 release (Adult Aspirin Regimen) atorvastatin 10 mg tablet 10 mg PO DAILY 04/20/2403/14 calcium carbonate (Calcium 600) 600 mg PO BID 11/18/24 03/25/25 levothyroxine 100 mcg tablet 100 mcg PO 11/18/2403/25 Previous Rx's ?Medication ?Instructions ?Recorded alendronate 70 mg tablet 70 mg PO QWEEK 90 days #13 t abs 08/31/25 acetaminophen 500 mg tablet 1,000 mg (2 x 500 mg) PO Q 8H 10 09/06/25 days #60 tabs lidocaine 5 % topical patch 1 patch topical DAILY #15 ea 09/06/25 oxycodone 5 mg tablet 2.5 mg (1/2 x 5 mg) PO Q6H P RN 09/06/25 pain #14 tabs Allergies Allergy/AdvReac Type Severity Reaction Status Date / Time Sulfa (Sulfonamide Allergy Unknown RASH Verified 09/06/25 15:45 Antibiotics) (SULFA (SULFONAMIDE ANTIBIOTICS)) thimerosal (THIMEROSAL) Allergy Unknown EYE RASH Verified 09/06/25 15:45 sulfa Allergy Mild Rash Uncoded 09/06/25 15:45 Thimerosal Allergy Mild Rash Uncoded 09/06/25 15:45 Review of Systems 2 Review of Systems: Pertinent review of systems as mentioned in HPI. All other system otherwise negative. [facility] Past Medical History [facility] Narrative: Medical history as mentioned in [facility] Medical History Ocular migraine Nuclear sclerosis Genital HSV Prediabetes Osteoporosis without pathological fracture Wrist fracture PMR (polymyalgia rheumatica) Temporal arteritis Carotid stenosis Basal cell carcinoma Rosacea Hypothyroidism Allergic rhinitis Surgical History Cataract extraction status of left eye H/O wrist surgery History of neck surgery Hx of cataract surgery Family History Family History Mother Emphysema/COPD Father Prostate cancer Sister Emphysema/COPD Social History Social History Household Members: Spouse Housing: House Alcohol intake: current Comment: Occassionally Patient Tobacco Use Status: Never used Tobacco Smoked in Last 30 Days: No Use of substances other than those prescribed or required for medical reasons: No Advance Directives: No Advance Directives Information Provided: No Physical Exam ED Exam Exam: General: Pleasant, no distress, interacting appropriately Head: Normacephalic, atraumatic ENT: oral mucosa moist, neck supple, no tracheal deviation, C-spine tenderness on palpation, C-collar intact Cardiovascular: regular rate, regular rhythm, no murmurs, rubbing, gallops, no chest wall tenderness Respiratory: CTAB, no wheeze, rales, rhonchi Gastrointestinal: Soft, non distended, non tender, non guarding, no ecchymosis on abdomen Extremities: Full range of motion in bilateral lower extremities, no obvious deformity in extremities. Patient does have right hip tenderness on palpation. No limb pain or swelling, no calf tenderness, no tenderness down the thoracic or lumbar spine. Neurological: Awake and alert, no facial droop noted Skin: Warm and dry Psychiatric: Appropriate mood and thoughts Vital Signs: Vital Signs - 24 hr 09/06/25 15:39 Temperature 97.6 F Pulse Rate 60 Respiratory Rate 16 Blood Pressure 137/74 Pulse Oximetry 100 Oxygen Delivery Method Room Air BMI result Body Mass Index 21.7 Medications Administered Discontinued Medications Generic Name Dose Route Start Last Admin Trade Name Freq PRN Reason Stop Dose Admin Acetaminophen 975 mg 09/06/25 20:19 09/06/25 20:44 Acetaminophen 325 Mg Tablet PO 09/06/25 20:20 975 mg ONCE ONE Administration Cyclobenzaprine HCl 5 mg 09/06/25 20:19 09/06/25 20:44 Cyclobenzaprine Hcl 5 Mg Tablet PO 09/06/25 20:20 5 mg ONCE ONE Administration Lactated Ringer's 1,000 mls @ 999 mls/hr 09/06/25 16:30 09/06/25 17:49 Lr IV 09/06/25 17:30 Infused .Q1H1M JACOB Infusion Medical Decision Making Medical Decision Making [facility] Narrative: This is a 80-year-old female presented hospital today after a syncopal episode and a fall. Patient stated that she did not completely lose consciousness. [place] dizzy and fell. We will obtain a CT head and CT C-spine. Hip x-ray will be obtained. I do not see any other deformity in her extremities that require further imaging at this time. We will also obtain basic lab work at this time. EKG will be obtained. Plan to give patient a bolus IV fluid. CT head CT C-spine is negative. Hip x-ray is negative for fracture. No significant abnormality on lab work. Patient's chest x-ray is negative. Patient's lumbar x-ray did show L2 compression fracture 20%. We will plan to discharge patient with pain medication Tylenol to take and some lidocaine patch. Oxycodone will be prescribed to the patient. Patient was able to ambulate with a walker. No red flag symptoms. Referral to spine Clinic will be provided the patient as well. Patient will be discharged home. Differential Diagnosis Differential Diagnoses: The differential diagnosis associated with the presentation includes COVID, dehydration, syncope, cardiac arrhythmia Lab Data [facility] Lab Attestation statement: I reviewed the patient's lab results. 09/06/25 16:00 09/06/25 16:00 Labs: Lab Results 09/06/25 09/06/25 09/06/25 Range/Units 16:00 16:02 19:15 WBC 5.8 (4.8-10.8) X10*3/uL RBC 3.98 L (4.20-5.50) X10*6/uL Hgb 12.8 (12.0-16.0) g/dl Hct 36.9 L (37.0-47.0) % MCV 92.7 (80.0-98.0) fL MCH 32.2 (27.0-33.0) pg MCHC 34.7 (31.0-35.0) g/dl RDW 13.2 (11.0-16.0) % Plt Count 204 D (160-400) X10*3/uL MPV 9.8 (9.4-12.3) fL Immature Gran % (Auto) 0.9 H (0.0-0.4) % Neut % (Auto) 61.5 (45-73) % Lymph % (Auto) 28.5 (20-40) % Wagoner % (Auto) 7.2 (2-11) % Eos % (Auto) 1.4 (0-4) % Baso % (Auto) 0.5 (0-2) % Lymph # (Auto) 1.7 (1.2-4.9) X10*3/uL Wagoner # (Auto) 0.4 (0.1-1.2) X10*3/uL Eos # (Auto) 0.1 (0.0-0.4) X10*3/uL Baso # (Auto) 0.0 (0.0-0.2) X10*3/uL Abs Immat Gran (auto) 0.05 H (0.00-0.03) X10*3/uL Absolute Neuts (auto) 3.6 (2.0-8.3) x10*3/uL Absolute Nucleated RBC 0.000 (0.0-0.012) X10*3/uL Nucleated RBC % (auto) 0.0 (0.0-0.2) /100WBC Hold Blue Top SEE NOTE Sodium 133 L (135-145) mmol/L Potassium 3.6 (3.3-5.1) mmol/L Chloride 99 (96-108) mmol/L Carbon Dioxide 24 (22-29) mmol/L Anion Gap 14 (12-20) BUN 21 H (9-16) mg/dL Creatinine 0.88 (0.5-1.4) mg/dL Estim Creat Clear Calc 49.3 Estimated GFR > 60 Random Glucose 103 (60-115) mg/dL Calcium 9.7 (8.4-10.2) mg/dL Total Bilirubin 0.4 (0.0-1.0) mg/dL AST 49 H (5-31) U/L ALT 25 (0-31) U/L Alkaline Phosphatase 85 (39-117) U/L Troponin I High Sens < 2.7 (<3.5-17.0) ng/L Total Protein 7.3 (6.5-8.0) g/dL Albumin 4.2 (3.5-5.0) g/dL Urine Color Yellow Urine Appearance Clear Urine pH 6.0 (5.0-9.0) Ur Specific [place] <= 1.005 (1.005-1.025) Urine Protein Negative (Neg-Trace) mg/dL Urine Glucose (UA) Negative (Negative) mg/dL Urine Ketones Trace (Negative) mg/dL Urine Blood Trace H (Negative) Urine Nitrite Negative (Negative) Ur Leukocyte Esterase Negative (Negative) Urine RBC 0-2 (0-2) /HPF Urine WBC 0-5 (0-5) /HPF Ur Squamous Epith Cells 0-2 (0-2) /HPF Urine Bacteria None Seen (None Seen) Hyaline Casts 0-2 (0-2) /LPF Influenza Type A (PCR) NEGATIVE (Negative) Influenza Type B (PCR) NEGATIVE (Negative) RSV RNA Qual (PCR) NEGATIVE (Negative) SARS-CoV-2 RNA (RT-PCR) POSITIVE A (Negative) Independent Interpretation I performed an independent interpretation of an: Plain X-Ray and CT Scan Radiology Impression Discussion of test interpretation with radiology: I have reviewed the radiologist's reading. Prescription Management I considered prescription management with: Pain Medication Discharge Plan Discharge Clinical Impression: Lumbar compression fracture Qualifiers: Encounter type: initial encounter Lumbar vertebra fracture level: L2 Qualified Code(s): S32.020A - Wedge compression fracture of second lumbar vertebra, initial encounter for closed fracture Patient Disposition: Home, Self-Care Instructions: Vertebral Compression Fracture (ED) Prescriptions: New acetaminophen 500 mg tablet 1,000 mg PO Q8H 10 Days Qty: 60 0RF oxycodone 5 mg tablet 2.5 mg PO Q6H PRN (Reason: pain) Qty: 14 0RF Rx Instructions: Partial Fill upon patient request. lidocaine 5 % adhesive patch,medicated 1 patch topical DAILY Qty: 15 0RF Rx Instructions: leave on most painful area for up to 12 hrs No Action alendronate 70 mg tablet 70 mg PO QWEEK 90 Days Qty: 13 1RF atorvastatin 10 mg tablet 10 mg PO DAILY aspirin [Adult Aspirin Regimen] 81 mg tablet,delayed release (DR/EC) 81 mg PO DAILY levothyroxine 100 mcg tablet 100 mcg PO calcium carbonate [Calcium 600] 600 mg calcium (1,500 mg) tablet 600 mg PO BID Referrals: [facility] [Provider Group, Neurosurgery] Clinical Impression: Lumbar compression fracture Print Language: Hungarian
[2025-09-06 15:47] VITALS: PULSE 61
[2025-09-06 16:08] LABS: MANUAL DIFF FLAG NO
[2025-09-06 16:14] LABS: Hematocrit 36.9 % (37.0-47.0); Hemoglobin 12.8 g/dl (12.0-16.0); Imm Gran Abs Auto 0.05 X10*3/uL (0.00-0.03); Imm Gran Pct Auto 0.9 % (0.0-0.4); Lymphocytes Absolute Auto 1.7 X10*3/uL (1.2-4.9); Mean Corpuscular HGB Conc 34.7 g/dl (31.0-35.0); Mean Corpuscular Hemoglobin 32.2 pg (27.0-33.0); Mean Corpuscular Volume 92.7 fL (80.0-98.0); NRBC Abs Auto 0.000 X10*3/uL (0.0-0.012); NRBC Pct Auto 0.0 /100WBC (0.0-0.2); Platelet Count 204 X10*3/uL (160-400); Red Blood Count 3.98 X10*6/uL (4.20-5.50); White Blood Count 5.8 X10*3/uL (4.8-10.8)
[2025-09-06 16:32] LABS: Alanine Aminotransferase 25 U/L (0-31); Albumin Level 4.2 g/dL (3.5-5.0); Alkaline Phosphatase 85 U/L (39-117); Anion Gap 14 (12-20); Aspartate Amino Transferase 49 U/L (5-31); Blood Urea Nitrogen 21 mg/dL (9-16); Calcium 9.7 mg/dL (8.4-10.2); Carbon Dioxide 24 mmol/L (22-29); Chloride 99 mmol/L (96-108); Creatinine Clr Calc Pharmacy 49.3; Estimated Glomerular Filt Rate > 60; Potassium 3.6 mmol/L (3.3-5.1); Sodium 133 mmol/L (135-145); Total Protein 7.3 g/dL (6.5-8.0)
[2025-09-06 16:35] LABS: Troponin-I High Sensitivity < 2.7 ng/L (<3.5-17.0)
[2025-09-06] MEDS: Lactated Ringers 1,000 ML 999 ML IV (16:48)
[2025-09-06 16:49] LABS: Resp Syncy Virus RNA Qual PCR NEGATIVE (Negative); SARS COV2 PCR INHOUSE POSITIVE (Negative)
[2025-09-06 19:26] LABS: Appearance Urine Clear; Glucose Urine UA Negative (Negative); PH 6.0 (5.0-9.0); Specific Gravity - Urine <= 1.005 (1.005-1.025); UMIC TRIGGER UACC YES
--- OUTSIDE RECORDS SUMMARY | 2025-09-06 20:33 | XMS_ITS | Encounter Summary ---
Author Organization [facility] Address [address] [facility] [address] [place] [phone] Phone Care Team Providers Care Route Process Administrator Name Role Phone Norma Conde MD Primary Care Provider [phone] Charlie Ya MD Primary Care Provide r Reason for Referral * Physical Therapy (Routine) - Closed Specialty Diagnoses / Procedures Referred By Jaki valentine Referred To Contact Physical Therapy Diagnoses Encounter for rehabilitation System, Provider Not In, [facility] [id number] [place] [id number] Phone: tel: Referral ID Status Reason Start Date Expiration Date Visits Re quested Visits Authorized [id number] Closed 11/11/2018 10/13/2019 99 [phone] Encounter Details Date Type Department Care Team (Latest Contact Info) Description 10/30/2018 Transcribe Orders [facility] [address] [place] [id number] Norma Conde MD [address] [place] [phone] Encounter for rehabilitation (Primary Dx) Social History Tobacco Use Types Packs/Day Years Used Date Smoking Tobacco: Never Assessed Comments Unknown Sex and Gender Information Value Date Recorded Sex Assigned at Female 12/25/2020 11:10 AM EDT Legal Sex Female 3:59 PM EST Gender Identity Female 12/25/2020 11:10 AM EDT Sexual Orientation Not on file documented as of this encounter Plan of Treatment Scheduled Referrals Name Type Priority Associated Diagnoses Orde r Schedule Ambulatory referral to [facility] Physical Therapy Outpatient Referral Routine Encounter for rehabilitation Ordered: 10/30/2018 documented as of this encounter Visit Diagnoses Diagnosis Encounter for rehabilitation- Primary documented in this encounter Care Teams Route Process Administrator Relationship Specialty Start Date End Date Norma Conde MD [address] [place] [phone] PCP - General Internal Medicine 10/29/18 11/01/19 Charlie Ya MD [address] [place] [phone] [email or web address] PCP - General Rheumatology 11/02/19 documented as of this encounter Additional Source Comments The information contained in this document represents components of the legal health record. It is not the complete legal health record.[facility]
--- OUTSIDE RECORDS SUMMARY | 2025-09-06 20:33 | XMS_ITS | Clinical Summary ---
Author Organization [facility] Address [address] [address] Phone Care Team Providers Care Social Work Lecturer Name Role Phone Charlie Ya MD Primary Care Provide r Allergies Active Allergy Reactions Criticality Noted Date Comments Sulfa (Sulfonamide Antibiotics) 05/2022 Thimerosal 07/21/2022 Medications alendronate (FOSAMAX) 70 MG tablet Take 70 mg by mouth every 7 days. Take in the morning with a full glass of water, on an empty stomach, and do not take anything else by mouth or lie down for the next 30 min. Active atorvastatin (LIPITOR) 20 MG tablet Take 10 mg by mouth daily. Active levothyroxine (SYNTHROID, LEVOTHROID) 100 MCG tablet Take 100 mcg by mouth every morning. Active aspirin 81 MG EC tablet Take 81 mg by mouth daily. Active jflvpiig-knp-vy rrous gluconate (CENTRUM WITH IRON) 9 mg iron/15 mL Liqd Take 15 mL by mouth daily. Active spwyhxv-mveo-qh duw-jnwd-dwhkjn 100 mg-150 mg- 50 mg-150 mg Cap Take by mouth. Active Active Problems No known active problems Immunizations Immunization Administration Dates Next Due COVID-19 (Pre-08/05) Pfizer Vaccine, mRNA, PF 01/21/2021,12/31/2020 Flu H1n1 Tiv Preservative Free 08/19/2009 INFLUENZA, SPLIT VIRUS, TRIVALENT PF 09/24/2016, 11/30/2015 INFLUENZA, SPLIT VIRUS, TRIV ALENT W/ PRESERVATIVE IM 09/07/2014,06/24/2013,07/18/2012,08/09,2011,06/22/2009,07/28/2008 Influenza High-Dose Trivalen t Preservative Free IM 07/21/2020,09/07/2019,06/20/2017 Influenza Quadrivalent Adjuv anted Preservative Free IM 06/02/2022,08/22/2021 Influenza Quadrivalent MDCK Preservative Free IM 08/26/2018 Pneumococcal conjugate PCV13 11/02/2015 Pneumococcal polysaccharide PPSV23 11/10/2012 Td, unspecified formulation 03/22/2003 Zoster recombinant 08/10/2020,05/20/2020 Social History Tobacco Use Types Packs/Day Years Used Date Smoking Tobacco: Never Assessed Education Answer Date Recorded Are you interested in more education? Not on bao e 02/08/2023 Are you concerned about learning? Not on file 02/08/2023 No 02/08/2023 No 02/08/2023 Digital Access Answer Date Recorded No 03/09/2023 No 03/09/2023 Reliable internet access at home? Not on file 03/09/2023 Device with a working camera? Not on file Comments Unknown Sex and Gender Information Value Date Recorded Sex Assigned at Female 12/25/2020 11:10 AM EDT Legal Sex Female 3:59 PM EST Gender Identity Female 12/25/2020 11:10 AM EDT Sexual Orientation Not on file Last Filed Vital Signs Vital Sign Reading Time Taken Comments Blood Pressure 111/62 07/21/2022 12:14 PM EDT Pulse 58 07/21/2022 12:14 PM EDT Temperature 36.9 C (98.5 F) 07/21/2022 12:14 PM EDT Respiratory Rate 18 07/21/2022 12:14 PM EDT Oxygen Saturation 97% 07/21/2022 12:14 PM EDT Inhaled Oxygen Concentration - - Weight 56.7 kg (125 lb) 07/21/2022 12:14 PM EDT Height 167.6 cm (5' 6 ) 07/21/2022 12:14 PM EDT Body Mass Index 20.18 07/21/2022 12:14 PM EDT Plan of Treatment Health Maintenance Due Date Last Done Comments LIPID PANEL 1947 TSH LEVEL 1947 DEPRESSION SCREENING 1959 SMOKING Hx and SMOKELESS TOBACCO SCREENING 1960 HEPATITIS C SCREENING 1965 OSTEOPOROSIS SCREENING INITIAL (ONE-TIME) 2012 RSV VACCINE (1 - 1-dose 75+ series) 2022 INFLUENZA VACCINE (#1) 2025 2, 08/22/2021, 07/21/2020, Additional history exists COVID-19 VACCINE (2024- season) 2025 02/22/2022, 08/02/2021, 01/21/2021, Additional history exists Adult Td,Tdap Booster 11/09/2031 11/09/2021 , 08/09/2011, 03/22/2003 PNEUMOCOCCAL VACCINES (50+ years) Completed 11/02/2015, 11/10/2012 ZOSTER VACCINES Completed 08/10/2020, 04/2020, 02/15/2011 HEPATITIS A VACCINES Aged Out No long er eligible based on patient's age to complete this topic HIB VACCINES Aged Out No longer eligi ble based on patient's age to complete this topic MENINGOCOCCAL VACCINES (ACWY) Aged Out No longer eligible based on patient's age to complete this topic MENINGOCOCCAL VACCINES (B) Aged Out N o longer eligible based on patient's age to complete this topic Medical Devices Not on file Insurance BLUE CROSS [place] MEDIC[place] PPO BLUE REPLACEMENT MEDICARE PPO BLUE REPLACEMENT MEDICARE PPO BLUE REPLACEMENT MEDICARE PPO BLUE REPLACEMENT Care Teams Social Work Lecturer Relationship Specialty Start Date End Date Charlie Ya MD [address] [place] [phone] [email or web address] PCP - General Rheumatology 11/02/19 Additional Source Comments The information contained in this document represents components of the legal health record. It is not the complete legal health record.[facility]
--- OUTSIDE RECORDS SUMMARY | 2025-09-06 20:33 | XMS_ITS | Clinical Summary ---
Author Organization [address] Address [address] [place] [phone] Phone Care Team Providers Care Mold Closer Name Role Phone Norma Conde MD Primary Care Provider [phone] Allergies Active Allergy Reactions Criticality Noted Date Comments Sulfa (Sulfonamide Antibiotics) Rash 07/21/2022 Thimerosal Rash,Swelling,Unknow n Medium 09/10/2005 Eye solution, eyes were very red and irritated Medications aspirin 81 mg EC tablet Take 1 tablet (81 mg total) by mouth 1 (one) time each day. Active glucosamine/dennis dr trevor garner (glucosamine-cho ndroitin) 1,500-1,200 mg/30 mL liquid Take by mouth 1 (one) time each day. Active atorvastatin (LIPITOR) 10 mg tablet TAKE 1 TABLET DAILY 90 tablet 1 5 Active vit C/vit E [...] BEFORE BREAKFAST 90 tablet 2 5 Active alendronate (FOSAMAX) 70 mg tablet Take 1 tablet (70 mg total) by mouth every 7 (seven) days. 5 Active valACYclovir (VALTREX) 500 mg tabletIndication s:Genital herpes simplex, unspecified site TAKE 2 TABLETS(1000 MG) BY MOUTH 1 TIME EACH DAY FOR 5 DAYS 10 tablet 1 5 Active Active Problems Problem Noted Date Diagnosed Date Memory impairment 05/25/2025 Overview (05/25/2025): Neurology consultation pending. MRI with white matter changes. Major differential diagnosis should include infectious/inflammatory etiology such as Lyme disease, multiple sclerosis, vasculitis, metabolic disorders, small vessel ischemia among the other etiologies. Lyme testing negative. 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 Following with barber stylist, Keyur Barfield MD Carotid stenosis 12/13/2015 Overview [...] Encounters Date Type Department Care Team Description 08/04/2025 10:00 AM EDT Consult Adult Medicine [address] [phone] Norma Conde MD Preop cardiovascular exam (Primary Dx); Prediabetes; Other hyperlipidemia; Age-related osteoporosis without current pathological fracture; Hypothyroidism due to acquired atrophy of thyroid; Cataract of right eye, unspecified cataract type 07/26/2025 Telephone Adult Medicine [address] [phone] Latesha Morales, CARLOS A 06/30/2025 Telephone Adult Medicine [address] [phone] Latesha Morales, CARLOS A 06/16/2025 2:30 PM EDT Clinical Support [address] [phone] Need for hepatitis B vaccination 06/15/2025 1:00 PM EDT Office Visit Adult [address] [phone] Renea Bruce PA Blood pressure check (Primary Dx); Age-related osteoporosis without current pathological fracture from Last 3 Months Immunizations Immunization Administration Dates Next Due COVID-19 (Pfizer/Comirnaty) 12yo and older 03/10/2024 Hepatitis B (Vrzaqbs-C-Jdgud , Recombivax HB-Adult) 19yo and older 06/16/2025,12/16/2024,11/09/2024 Influenza Quadravalent, 0.5m l (Fluad) 65yo and older 06/02/2022,08/22/2021 Influenza Quadravalent, MDCK , 0.5ml, preservative free (Flucelvax) 6mo and older 08/26/2018 Influenza trivalent, 0.5mL ( Fluad) 65yo and older 06/25/2024,07/18/2023,06/20/2017 Influenza trivalent, 0.5mL ( Fluzone High-dose) 65yo and older 07/21/2020,09/07/2019 Influenza trivalent, 0.5mL, preservative free (Fluarix; FluLaval; Fluzone) ages 6mo and older (Afluria) 3 years and older 09/24/2016,11/30/2015 Influenza trivalent, with pr eservative (Fluzone; Afluria) 6mo and older 07/20/2025 Moderna SARS-CoV-2 COVID-19, mRNA, LNP-S, preservative free 07/20/2025 Pfizer (ages 12 & older) Biv alent, [...] Right : b9 SCREENING MAMMOGRAM 05/14/2024 Bilateral CATARACT EXTRACTION Left Medical History Medical History Date Comments Nonspecific [...] Bilateral, gamaliel re,vertebral artery stenosis Temporal arteritis ([facility] V24, CMS/HCC V28) 12/21/2015 Wrist fracture 07/30/2017 : 07/30 [...] drink = 0.6 oz pur e alcohol) Housing Instability Answer Date Recorde d Are you worried that in the next 2 months you may not have stable housing? No 05/06/2025 Food Access & Nutrition Answer Date Rec orded Do you have access to a vari ety of food including fruits and vegetables? Yes 05/06/2025 Access to Healthcare Answer Date Record ed Within the last 3 months, jessica alexandre many times did you visit the emergency department for your medical care? 0 05/06/2025 Health Literacy Answer Date Recorded How often do you need to hav e someone help you when you read instructions, pamphlets, or other written material from your doctor or pharmacy? Rarely 05/06/2025 Caregiver: How often do you need to have someone help you when you read instructions, pamphlets, or other written material from your doctor or pharmacy? Not on file 05/06/2025 Financial Risk Answer Date Recorded How hard is it for you to pa y for the very basics like food, housing, medical care, and air conditioning / heating? Not very hard 05/06/2025 Transportation Answer Date Recorded Has the lack of transportati on kept you from meetings, work, or from getting things needed for daily living? No Has the lack of transportati on kept you from medical appointments or from getting medications? No 05/06/2025 Social Isolation Answer Date Recorded How often do you feel lonely or isolated from th ose around you? Rarely 05/06/2025 Food Risk Answer Date Recorded Within the past 12 months we worried whether our food would run out before we got money to buy more. Never true 05/06/2025 Within the past 12 months th e food we bought just didn't last and we didn't have money to get more. Never true 05/06/2025 Dependent Care Answer Date Recorded Do you need help finding or paying for care for your loved ones. For example, attendant children's institution or elderly care for an older adult? No 05/06/2025 Education Answer Date Recorded Do you think completing more education or training, like finishing a GED, going to college, or learning a trade, would be helpful for you? No 05/06/2025 Employment and Income Answer Date Recor ded During the last four weeks, have you been actively looking for work? No 05/06/2025 Living Situation Answer Date Recorded What is your living situation? Unrecognized valu e 05/06/2025 Comments No Sex and Gender Information Value Date Recorded Sex Assigned at Not on file Legal Sex Female 9:39 AM EST Gender Identity Female 07/20/2025 4:49 PM EDT Sexual Orientation Straight 07/20/2025 4: 49 PM EDT Obstetrics History Para Term AB IAB SAB Ectopic Multiple Livin g Live Births 0 0 0 0 Last Filed Vital Signs Vital Sign Reading Time Taken Comments Blood Pressure 118/48 08/04/2025 10:03 AM EDT Pulse 71 08/04/2025 10:03 AM EDT Temperature 35.7 C (96.2 F) 08/04/2025 10:03 AM EDT Respiratory Rate 14 08/04/2025 10:03 AM EDT Oxygen Saturation 99% 08/04/2025 10:03 AM EDT Inhaled Oxygen Concentration - - Weight 56.5 kg (124 lb 8 oz) 08/04/2025 10:03 AM EDT Height 167.6 cm (5' 6 ) 08/04/2025 10:03 AM EDT Body Mass Index 20.09 08/04/2025 10:03 AM EDT Plan of Treatment Upcoming Encounters Date Type Department Care Team (Late st Contact Info) Description 12/13/2025 1:15 PM EST Office Visit Adult Medicine [facility] [address], [place] [phone] Norma Conde MD [address] [place], [place] Health Maintenance Due Date Last Done Comments RSV Immunization Adult Patients (1 - 1-dose 75+ series) 2022 12/04/2023 Osteoporosis Screening (Bone Density Screening) 11/15/2024 11/15/2022, 07/05/2020, 12/31/2017 COVID-19 Vaccine ( season) 2025 07/20/2025, 06/25/2024, 03/10/2024, Additional history exists Medicare Annual Wellness Visit 05/06/2026 05/06/2025 Social Influencers of Health Screening 05/06/2026 05/06/2025 Falls Risk Assessment 06/15/2026 06/15/2025 , 05/06/2025, 04/23/2024 Cholesterol Screening (Lipid Panel) 07/29/2030 07/29/2025, 10/22/2024, 12/11/2023 DTaP,Tdap,and Td Vaccines (4 - Td or Tdap) 11/09/2031 11/09/2021, 08/09/2011, 03/22/2003 Pneumococcal Vaccine: 50+ Years Completed 11/02/2015, 11/10/2012 Hepatitis C Screening Completed 11/23/2016 Zoster Vaccines Completed 08/10/2020, 08/0 04/2020, 02/15/2011 RSV Immunization Patients Under 20 months Aged Out 12/04/2023 No longer eligible based on patient's age to complete this topic Depression Screening Completed 06/09/2025 Hepatitis B Vaccines Completed 06/16/2025, 12/16/2024, 11/09/2024 Influenza Vaccine Completed 07/20/2025, , 07/18/2023, Additional history exists HIB Vaccines Aged Out [...] Diagnosis Comments CBC WITH AUTO DIFFERENTIAL Routine 07/29/2025 2:25 PM EDT Memory impairment Prediabetes HEMOGLOBIN A1C Routine 07/29/2025 2:25 PM EDT Prediabetes CBC AND DIFFERENTIAL Routine 07/29/2025 2:25 PM EDT Memory impairment Prediabetes LIPID PANEL WITH REFLEX TO DIRECT LDL Routine 07/29/2025 2:25 PM EDT Other hyperlipidemia METHYLMALONIC ACID, SERUM Routine 07/29/2025 2:25 PM EDT Memory impairment DXA BONE DENSITY STUDY 1+ SITS AXIAL SKEL Routine 11/15/2022 3:07 PM EST Age-related osteoporosis without current pathological fracture from Last 3 Months or Most Recently Relevant to Health Maintenance Results * Lipid panel with reflex to direct LDL (07/29/2025 2:25 PM EDT) Cholesterol 182 0 - 200 mg/dL LAB CHEMISTRY METHOD 07/29/2025 6:50 PM EDT [facility] Triglycerides 91 0 - 150 mg/dL LAB CHEMISTRY METHOD 07/29/2025 6:50 PM EDT [facility] HDL 89 >=40 mg/dL LAB CHEMISTRY METHOD 07/29/2025 6:50 PM EDT [facility] LDL Calculated 75 0 - 100 mg/dL LAB CHEMISTRY METHOD 07/29/2025 6:50 PM EDT [facility] Comment:Estimated LDL Calcul ated using equation: Total cholesterol - HDL cholesterol - (Triglycerides/5) VLDL Cholesterol Faiza 18.2 mg/dL LAB CHEMISTRY METHOD 07/29/2025 6:50 PM EDT [facility] Non HDL Chol. (LDL+VLDL) 93 <145 mg/dL LAB CHEMISTRY METHOD 07/29/2025 6:50 PM EDT [facility] Chol/HDL Ratio 2.0 0.0 - 4.4 LAB CHEMISTRY METHOD 07/29/2025 6:50 PM EDT [facility] Blood Venous blood specimen / Unknown Venipuncture / Unknown 07/29/2025 2:25 PM EDT 07/29/2025 2:25 PM EDT us Norma Conde MD LAB BLOOD ORDERABLES Final Resul t [facility] [address] [place] [address], * (ABNORMAL) CBC auto differential (07/29/2025 2:25 PM EDT) [facility] WBC 7.3 4.8 - 10.8 K/[facility] LAB HEMETOLOGY METHOD 07/29/2025 5:22 PM EDT [facility] RBC 4.20 3.80 - 4.80 M/[facility] LAB HEMETOLOGY METHOD 07/29/2025 5:22 PM EDT [facility] Hemoglobin 13.6 11.5 - 16.0 g/dL LAB HEMETOLOGY METHOD 07/29/2025 5:22 PM EDT [facility] Hematocrit 39.7 35.0 - 47.0 % LAB HEMETOLOGY METHOD 07/29/2025 5:22 PM EDT [facility] MCV 95.2 79.0 - 98.0 FL LAB HEMETOLOGY METHOD 07/29/2025 5:22 PM EDT [facility] MCH 32.6(H) 27.0 - 32.0 pcg LAB HEMETOLOGY METHOD 07/29/2025 5:22 PM EDT [facility] MCHC 34.3 32.0 - 37.0 g/dL LAB HEMETOLOGY METHOD 07/29/2025 5:22 PM EDT [facility] RDW 12.9 11.0 - 15.0 % LAB HEMETOLOGY METHOD 07/29/2025 5:22 PM EDT [facility] Platelets 309 130 - 400 K/mcL LAB HEMETOLOGY METHOD 07/29/2025 5:22 PM EDT [facility] MPV 10.4 7.0 - 11.0 FL LAB HEMETOLOGY METHOD 07/29/2025 5:22 PM EDT [facility] NRBC 0.0 <1.0 % LAB HEMETOLOGY METHOD 07/29/2025 5:22 PM EDT [facility] NRBC Absolute 0.00 <0.10 K/mcL LAB HEMETOLOGY METHOD 07/29/2025 5:22 PM EDT [facility] Neutrophils Relative 55.8 % LAB HEMETOLOGY METHOD 07/29/2025 5:22 PM EDT [facility] Lymphocytes Relative 32.6 % LAB HEMETOLOGY METHOD 07/29/2025 5:22 PM EDT [facility] Monocytes Relative 9.0 % LAB HEMETOLOGY METHOD 07/29/2025 5:22 PM EDT [facility] Eosinophils Relative 1.8 % LAB HEMETOLOGY METHOD 07/29/2025 5:22 PM EDT [facility] Basophils Relative 0.5 % LAB HEMETOLOGY METHOD 07/29/2025 5:22 PM EDT [facility] Immature Granulocytes Relative 0.3 % LAB HEMETOLOGY METHOD 07/29/2025 5:22 PM EDT [facility] Neutrophils Absolute 4.08 1.50 - 7.00 K/mcL LAB HEMETOLOGY METHOD 07/29/2025 5:22 PM EDT [facility] Lymphocytes Absolute 2.38 1.00 - 5.00 K/mcL LAB HEMETOLOGY METHOD 07/29/2025 5:22 PM EDT [facility] Monocytes Absolute 0.66 0.20 - 1.00 K/mcL LAB HEMETOLOGY METHOD 07/29/2025 5:22 PM EDT [facility] Eosinophils Absolute 0.13 0.00 - 0.50 K/mcL LAB HEMETOLOGY METHOD 07/29/2025 5:22 PM EDT [facility] Basophils Absolute 0.04 0.00 - 0.20 K/mcL LAB HEMETOLOGY METHOD 07/29/2025 5:22 PM EDT [facility] Immature Granulocytes Absolute 0.02 0.00 - 0.03 K/mcL LAB HEMETOLOGY METHOD 07/29/2025 5:22 PM EDT [facility] Blood Venous blood specimen / Unknown Venipuncture / Unknown 07/29/2025 2:25 PM EDT 07/29/2025 2:25 PM EDT us Norma Conde MD LAB BLOOD ORDERABLES Final Resul t [facility] [address] [place] [address], [place] [phone] * Methylmalonic acid, serum (07/29/2025 2:25 PM EDT) Pathologist [facility] Methylmalonic Acid 0.20 <0.40 umol/L 08/03/2025 1:24 PM EDT [facility] Comment: If applicable, any drug confirmation testing reported here was developed and the performance characteristics determined by [facility]. This confirmation testing has not been cleared or approved by the FDA. The laboratory is regulated under CLIA as qualified to perform high-complexity testing. This test is used for patient testing purposes. It should not be regarded as investigational or for research. Test performed at [facility], [address] , [place] [address] Jada Mejía MD, PhD - Manager Generation Blood Venous blood specimen / Unknown Venipuncture / Unknown 07/29/2025 2:25 PM EDT 07/29/2025 2:25 PM EDT Norma Conde MD LAB BLOOD ORDERABLES Final Resul t [facility] [address] [place] [address] * Hemoglobin A1c (07/29/2025 2:25 PM EDT) Pathologist [facility] Hemoglobin A1C 6.0 <6.5 % LAB CHEMISTRY METHOD 07/29/2025 9:39 PM EDT [facility] Mean Bld Glu Estim. 126 mg/dL LAB CHEMISTRY METHOD 07/29/2025 9:39 PM EDT [facility] Blood Venous blood specimen / Unknown Venipuncture / Unknown 07/29/2025 2:25 PM EDT 07/29/2025 2:25 PM EDT us Norma Conde MD LAB BLOOD ORDERABLES Final Resul t [facility] [address] [place] [address], * DXA BONE DENSITY STUDY 1+ SITS [...] 07/05/2020 and as far back as 03/12/2002. No statistically significant change in bone mineral density compared with 2019. IMPRESSION: IMPRESSION: Osteoporosis by WHO criteria. The [facility] Department of Internal Medicine recommends using National [...] screening schedule based on miki Peña., [facility] November 01, 2011 for patients [...] IMPRESSION: IMPRESSION: Osteoporosis by WHO criteria. The [facility] Department of Internal Medicine recommendsusing National Osteoporosis [...] screening schedule based on miki Peña., [facility] for patients with osteopenia (based on [...] [place] - [place] MEDIC[place] Care Teams Mold Closer Relationship Specialty Start Date End Date Norma Conde MD [address] [place] [phone] PCP - General 09/27/1992
--- OUTSIDE RECORDS SUMMARY | 2025-09-06 20:33 | XMS_ITS ---
Author Name [facility] Organization Unknown Care Team Organization Name Specialty Phone Email Start Date End Da te [facility] Norma Conde Primary Care 08/21/2022
[2025-09-06 21:54] VITALS: BP 137/74; PULSE 60; RESP 16; TEMP 36.4; O2SAT 100
== END 2025-09-06 21:55 | disposition home or self-care (01) ==
PROVIDERS: Emergency Provider Student in an Organized Health Care Education/Training Program; PCP Internal Medicine
DX: S32.020A Wedge compression fracture of second lumbar vertebra, initial encounter for closed fracture (principal); R11.0 Nausea; R55 Syncope and collapse; M54.2 Cervicalgia; R00.1 Bradycardia, unspecified; R42 Dizziness and giddiness; R10.22 Pelvic and perineal pain left side; X58.XXXA Exposure to other specified factors, initial encounter; W19.XXXA Unspecified fall, initial encounter; Z91.81 History of falling; Y93.9 Activity, unspecified; Y92.9 Unspecified place or not applicable; Y99.8 Other external cause status; Z03.818 Encounter for observation for suspected exposure to other biological agents ruled out; Z79.899 Other long term (current) drug therapy
CPT/HCPCS: 36415; 70450; 71046; 72100; 72125; 72170; 80053; 81001; 84484; 85025; 87637; 93005; 96360; 99284; 99285; J7120

== ENCOUNTER → 2025-09-06 16:18 | Outpatient (BNV) | payer MEDICARE, SELFPAY | PROVIDERS: Emergency Provider Student in an Organized Health Care Education/Training Program; PCP Internal Medicine; Visit Provider Radiology Diagnostic Radiology | DX: S19.9XXA Unspecified injury of neck, initial encounter (principal); M47.812 Spondylosis without myelopathy or radiculopathy, cervical region; M85.80 Other specified disorders of bone density and structure, unspecified site; G31.9 Degenerative disease of nervous system, unspecified; G93.89 Other specified disorders of brain; S32.020A Wedge compression fracture of second lumbar vertebra, initial encounter for closed fracture; R07.9 Chest pain, unspecified; M16.0 Bilateral primary osteoarthritis of hip; M85.88 Other specified disorders of bone density and structure, other site | CPT/HCPCS: 70450; 71046; 72100; 72125; 72170 ==

== ENCOUNTER 2025-09-14 13:16 | Emergency (ER) | payer MEDICARE, SELFPAY ==
[2025-09-14] VITALS (8 sets, daily range): BP systolic 128–174; BP diastolic 55–71; PULSE 46–76; RESP 12–16; TEMP 36.1–37.1; O2SAT 95–100; BMI 17.6
--- NOTE | ~2025-09-14 | CT_ITS ---
EXAMINATION: CT ANGIOGRAM HEAD AND NECK CLINICAL INFORMATION: Multiple syncopal episodes, history of carotid stenosis. Per prior exams, history of temporal arteritis. COMPARISON: No prior CTA. MRA neck 06/08/2024. TECHNIQUE: Noncontrast axial imaging of the head was performed. This was followed by test bolus sequences and head and neck intravenous bolus administration 70 mL of Omnipaque 350. Helical imaging was performed in the axial plane from the aortic arch to the skull vertex. The data was processed at the nuclear medical technologist's workstation for generation of MIP sequences. Angled MIPs and volume rendered reformatted images were also generated at an offline 3D workstation. Stenoses are assessed in accordance with NASCET criteria unless otherwise indicated. This CT examination was performed using dose optimization techniques as appropriate, variously including the following: *Automated exposure control *Adjustment of mA and/or kV according to patient size (this includes techniques or standardized protocols for targeted exams where dose is matched to indication/reason for exam; i.e. extremities or head) *Use of iterative reconstruction technique FINDINGS: NONCONTRAST HEAD CT: There is no evidence of intracranial hemorrhage or extra-axial fluid collection. There is no mass effect, or edema. No CT evidence of acute territorial infarct. Ventricles, sulci, and cisterns are mildly diffusely prominent, in keeping with age-related cerebral and cerebellar volume loss. No hydrocephalus. No midline shift. Patchy periventricular and deep white matter hypoattenuation is consistent with moderate small vessel ischemic changes. Globes and orbital contents image normally. There are bilateral lens replacements present. No extracranial soft tissue abnormalities. The paranasal sinuses, mastoid air cells, and tympanic cavities are normally aerated. No suspicious bony abnormalities. 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 NECK CTA: Exam is mildly motion degraded. This limits the sensitivity of the exam. -AORTIC ARCH: Normal in caliber. Mild atheromatous calcification. Three-vessel branching pattern. -GREAT VESSEL ORIGINS: Widely patent. No stenosis. -Beaded appearance to both proximal subclavian arteries, in keeping with sequela of known giant cell arteritis. -RIGHT COMMON CAROTID ARTERY: Normal in course and caliber to the level of the bifurcation. -CERVICAL RIGHT INTERNAL CAROTID ARTERY: Mild calcific and soft atherosclerotic plaque of the carotid bulb and proximal internal carotid artery without flow-limiting stenosis. -LEFT COMMON CAROTID ARTERY: Normal in course and caliber to the level of the bifurcation. -CERVICAL LEFT INTERNAL CAROTID ARTERY: Soft atherosclerotic plaque of the carotid bulb and proximal internal carotid artery without flow-limiting stenosis. -CERVICAL RIGHT VERTEBRAL ARTERY: Dominant. Patent origin. Normal in course and caliber into the skull base. -CERVICAL LEFT VERTEBRAL ARTERY: Non-dominant. Patent origin. Normal in course and caliber into the skull base. OTHER, SOFT TISSUES: -No lymphadenopathy or mass. No abnormal fluid collection or soft tissue swelling. -Somewhat diminutive appearing thyroid without dominant lesion. -Imaged superior mediastinal structures normal. -Imaged lung apices demonstrate bilateral right greater than left apical pleural parenchymal scarring. CTA OF THE BRAIN: This examination is highly limited due to patient motion. Small aneurysms and significant stenoses could easily be obscured by motion. -INTRACRANIAL INTERNAL CAROTID ARTERIES: Grossly patent without flow-limiting stenosis or aneurysm. -RIGHT ANTERIOR CEREBRAL ARTERY: Normal A1 segment. Normal arborization of the distal segments. -LEFT ANTERIOR CEREBRAL ARTERY: Normal A1 segment. Normal arborization of the distal segments. -ANTERIOR COMMUNICATING ARTERY: Motion degraded. Normal. -RIGHT MIDDLE CEREBRAL ARTERY: Normal M1 segment of the MCA without focal stenosis or occlusion. Grossly normal bifurcation. Normal arborization of the distal segments. -LEFT MIDDLE CEREBRAL ARTERY: Normal M1 segment of the MCA without focal stenosis or occlusion. Grossly normal bifurcation. Normal arborization of the distal segments. -RIGHT VERTEBRAL ARTERY V4: Nondominant. Normal in course and caliber. Normal PICA branch. -LEFT VERTEBRAL ARTERY V4: Non-dominant. Normal in course and caliber. Normal PICA branch. -BASILAR ARTERY: Normal without focal stenosis or occlusion. Normal appearance of the proximal superior cerebellar arteries. Normal basilar tip. -RIGHT POSTERIOR CEREBRAL ARTERY: Normal P1 segment. Normal opacification of the distal [employer] segments. -LEFT POSTERIOR CEREBRAL ARTERY: Normal P1 segment. Normal opacification of the distal [employer] segments. -POSTERIOR COMMUNICATING ARTERIES: Poorly seen due to motion. Normal opacification of the superior sagittal, straight, transverse, and sigmoid sinuses. No venous thrombosis. CT/CT angio head neck IMPRESSION: NON-CONTRAST HEAD CT: 1. No intracranial hemorrhage or mass effect. No CT evidence of acute territorial infarct. 2. Moderate chronic white matter changes of small vessel ischemia. CTA NECK: 1. Beaded appearance of both proximal subclavian arteries in keeping with known giant cell arteritis, resulting in mild stenoses bilaterally. 2. Mild atheromatous plaque of the bilateral carotid bulbs and proximal ICAs present, without flow-limiting stenosis. 3. Both vertebral arteries appear patent. The right is dominant. 4. Somewhat diminutive appearing thyroid gland. CTA HEAD: 1. Extensive motion degradation results in a very limited study. Grossly no high-grade stenosis or occlusion evident involving the major intracranial arterial vasculature. No medium to large sized aneurysm seen. 2. Major cortical and dural venous sinuses appear patent. Electronically signed by: Gopi Scott MD 09/14/2025 04:38 PM EST
--- OUTSIDE RECORDS SUMMARY | 2025-09-14 08:30 | XMS_ITS | Encounter Summary ---
Author Organization [facility] Address [address] [place] [address] Care Team Providers Care Contract Administration Manager Name Role Phone Norma Conde MD Primary Care Provider [phone] Reason for Referral * Consultation (Routine) - Pending Review Specialty Diagnoses / Procedures Referred By Contac t Referred To Contact Neurosurgery Diagnoses Closed compression fracture of L2 vertebra, initial encounter ([facility] V24, [facility] V28) Renea Bruce PA [address] [place] [address] Phone: tel: fax: [facility] [address] [place] [address] Phone: tel: fax: Referral ID Status Reason Start Date Expiration Date Visits Requested Visits Authorized [id number] Pending Review Specialty Services Required 09/14/2025 09/14/2026 1 1 * Imaging (Routine) - Pending Review Specialty Diagnoses / Procedures Referred By Contac t Referred To Contact Radiology Diagnoses Closed compression fracture of L2 vertebra, initial encounter ([facility] V24, [facility] V28) Procedures MR Lumbar Spine wo Contrast Renea Bruce PA [address] [place] [address] Phone: tel: fax: [facility] [address] [place] [address] Phone: tel: Referral ID Status Reason Start Date Expiration Date V isits Requested Visits Authorized [id number] Pending Review 09/14/2025 09/14/2026 1 1 Reason for Visit * Reason Comments Follow-up [facility] 09/06/25 Fall Encounter Details Date Type Department Care Team (Late st Contact Info) Description 09/14/2025 8:30 AM EST Office Visit Adult Medicine [facility] [address], [place] [phone] Renea Bruce PA [address], [place] Closed compression fracture of L2 vertebra, initial encounter ([facility] V24, [facility] V28) (Primary Dx) Social History Tobacco Use Types Packs/Day Years Used Date Smoking Tobacco: Never Smokeless Tobacco: Never Tobacco Cessation:Counseling Given: Not Answered Alcohol Use Standard Drinks/Week Comments Yes 0 (1 standard drink = 0.6 oz pur e alcohol) Housing Instability Answer Date Recorde d Are you worried that in the next 2 months you may not have stable housing? No 09/14/2025 Food Access & Nutrition Answer Date Rec orded Do you have access to a vari ety of food including fruits and vegetables? Yes 09/14/2025 Access to Healthcare Answer Date Record ed Within the last 3 months, ho bettie many times did you visit the emergency department for your medical care? 1 09/14/2025 Health Literacy Answer Date Recorded How often do you need to hav e someone help you when you read instructions, pamphlets, or other written material from your doctor or pharmacy? Sometimes 09/14/2025 Caregiver: How often do you need to have someone help you when you read instructions, pamphlets, or other written material from your doctor or pharmacy? Not on file 09/14/2025 Financial Risk Answer Date Recorded How hard is it for you to pa y for the very basics like food, housing, medical care, and air conditioning / heating? Not very hard 09/14/2025 Transportation Answer Date Recorded Has the lack of transportati on kept you from meetings, work, or from getting things needed for daily living? No Has the lack of transportati on kept you from medical appointments or from getting medications? No 09/14/2025 Social Isolation Answer Date Recorded How often do you feel lonely or isolated from th ose around you? Rarely 09/14/2025 Food Risk Answer Date Recorded Within the past 12 months we worried whether our food would run out before we got money to buy more. Never true 09/14/2025 Within the past 12 months th e food we bought just didn't last and we didn't have money to get more. Never true 09/14/2025 Dependent Care Answer Date Recorded Do you need help finding or paying for care for your loved ones. For example, child care centre director or elderly care for an older adult? No 09/14/2025 Education Answer Date Recorded Do you think completing more education or training, like finishing a GED, going to college, or learning a trade, would be helpful for you? N/A 09/14/2025 Employment and Income Answer Date Recor ded During the last four weeks, have you been actively looking for work? No 09/14/2025 Living Situation Answer Date Recorded What is your living situation? Unrecognized valu e 09/14/2025 Comments No Sex and Gender Information Value Date Recorded Sex Assigned at Not on file Legal Sex Female 9:39 AM EST Gender Identity Female 07/20/2025 4:49 PM EDT Sexual Orientation Straight 07/20/2025 4: 49 PM EDT documented as of this encounter Last Filed Vital Signs Vital Sign Reading Time Taken Comments Blood Pressure 174/83 09/14/2025 8:[address] rage Pulse 56 09/14/2025 8:37 AM EST Temperature 35.7 C (96.2 F) 09/14/2025 8:37 AM EST Respiratory Rate 14 09/14/2025 8:37 AM EST Oxygen Saturation 99% 09/14/2025 8:37 AM EST Inhaled Oxygen Concentration - - Weight 56.6 kg (124 lb 12.8 oz) 09/14/2025 8:37 AM EST Height 167.6 cm (5' 6 ) 09/14/2025 8:37 AM EST Body Mass Index 20.14 09/14/2025 8:37 AM EST documented in this encounter Ordered Prescriptions Prescription Sig Dispense Quantity Refills Last Filled Start Date End Date tiZANidine (ZANAFLEX) 4 mg tablet Take 1 tablet (4 mg total) by mouth 3 (three) times a day if needed for muscle spasms. 30 tablet 09/14/2025 gabapentin (NEURONTIN) 100 mg capsule Take 3 capsules (300 mg total) by mouth at bedtime AND 1 capsule (100 mg total) 1 (one) time each day in the morning AND 1 capsule (100 mg total) 1 (one) time each day with lunch. 90 each 09/14/2025 documented in this encounter Plan of Treatment Upcoming Encounters Date Type Department Care Team (Late st Contact Info) Description 12/13/2025 1:15 PM EST Office Visit Adult Medicine [facility] [address] [place] [phone] Norma Conde MD [address] [place] [address] Scheduled Orders Name Type Priority Associated Diagnoses Orde r Schedule MR Lumbar Spine wo Contrast Imaging Routine Closed compression fracture of L2 vertebra, initial encounter ([facility] V24, [facility] V28) Expected: 09/14/2025, Expires: 09/14/2026 Scheduled Referrals Name Type Priority Associated Diagnoses Order Schedule Ambulatory referral to Neurosurgery Outpatient Referral Routine Closed compression fracture of L2 vertebra, initial encounter ([facility] V24, [facility] V28) 1 Occurrences starting 09/14/2025 until 09/14/2026 documented as of this encounter Visit Diagnoses Diagnosis Closed compression fracture of L2 vertebra, initial encounter ([facility] V24, [facility] V28)- Primary documented in this encounter Historical Medications * This list may reflect changes made after this encounter. oxyCODONE (ROXICODONE) 5 mg immediate release tablet Take 1 tablet (5 mg total) by mouth every 6 (six) hours if needed. 09/07/2025 lidocaine (LIDODERM) 5 % patch 09/07/2025 acetaminophen (TYLENOL) 500 mg tablet Take 1 tablet (500 mg total) by mouth every 4 (four) hours if needed. 09/07/2025 added in this encounter Additional Health Concerns Assessment Noted Time PHQ-9 Depression Total Score: 0 09/14/20 8:43 AM EST documented as of this encounter Care Teams Contract Administration Manager Relationship Specialty Start Date End Date Norma Conde MD [address] [place] [address] PCP - General 09/27/1992 documented as of this encounter
--- NOTE | 2025-09-14 13:36 | ECG_ITS ---
Test Reason : SYNCOPE Blood Pressure : */* mmHG Vent. Rate : 53 BPM Atrial Rate : 53 BPM P-R Int : 158 ms QRS Dur : 80 ms QT Int : 502 ms P-R-T Axes : 71 56 66 degrees QTcB Int : 471 ms Sinus bradycardia Otherwise normal ECG When compared with ECG of 06-Sep-2025 16:05, QRS axis Shifted left Criteria for Lateral infarct are no longer Present Referred By: Luke Cardona Electronically Signed By: BRAULIO BECKWITH
--- NOTE | 2025-09-14 13:39 | PC.NURSE ---
pT ROOMED AND PLACED ON FULL MONITOR- vss DENIES DIZZINESS SOB, CP N/V. nsr NO ECTOPY ON TELE. C/O BACK PAIN
--- NOTE | 2025-09-14 14:10 | ED.GENADULT ---
HPI - General Adult General Chief complaint: Syncope Stated complaint: BACK AND NECK PAIN Time Seen by Provider: 09/14/25 13:33 Source: patient, EMS and old records reviewed Mode of arrival: EMS Limitations: no limitations History of Present Illness ED Provider: TIMOTHY Daniels HPI narrative: 80-year-old female with medical history of osteoporosis, polymyalgia rheumatica, carotid stenosis, basal cell carcinoma, rosacea, hypothyroidism, presents to the ED due to syncopal episode prior to arrival. Patient states she was on the toilet having a bowel movement when she felt lightheaded her came into the bathroom immediately and was able to hold her up and told EMS the patient was alert the entire time and did not have a full syncopal episode, does endorse patient having 1 episode of diarrhea. was able to help lower the patient to the ground, denies headstrike. Patient states she took a dose of something before this happened and does not know if it was gabapentin or a muscle relaxer. Patient states that she feels out of it and somewhat confused about what happend prior to arrival. Patient was seen in the department on 09/06 for syncope with LOC and headstrike. Patient was found to have L2 compression fracture and was discharged home with oxycodone, tylenol and lidocaine patches. Patient denies chest pain, shortness of breath, difficulty breathing, abdominal pain, nausea, vomiting, dizziness, headaches, visual changes, urinary symptoms MD complaint: near syncope Related Data Home Medications ?Medication ?Instructions ?Recorded ?Confirmed aspirin 81 mg tablet,delayed 81 mg PO DAILY 04/20/24 09/15/25 release (Adult Aspirin Regimen) calcium carbonate (Calcium 600) 600 mg PO BID 11/18/24 09/15/25 acetaminophen 500 mg tablet 1,000 mg PO Q8H PRN Pain 09/15/25 09/15/25 alendronate 70 mg tablet 70 mg PO MEIER 09/15/25 09/15/25 cholecalciferol (vitamin D3) 50 100 mcg PO DAILY 09/15/25 09/15/25 mcg (2,000 unit) tablet (Vitamin D3) ketorolac 0.5 % eye drops 1 drp ophthalmic-Right TID 09/15/25 09/15/25 levothyroxine 88 mcg tablet 88 mcg PO DAILY@0600 09/15/25 09/15/25 lidocaine 5 % topical patch 1 patch topical DAILY PRN Pain 09/15/25 09/15/25 Previous Rx's ?Medication ?Instructions ?Recorded oxycodone 5 mg tablet 5 mg PO Q8H PRN severe pain (scale 09/16/25 score 7-10) #5 tabs Allergies Allergy/AdvReac Type Severity Reaction Status Date / Time Sulfa (Sulfonamide Allergy Unknown RASH Verified 09/14/25 13:27 Antibiotics) (SULFA (SULFONAMIDE ANTIBIOTICS)) thimerosal (THIMEROSAL) Allergy Unknown EYE RASH Verified 09/14/25 13:27 sulfa Allergy Mild Rash Uncoded 09/14/25 13:27 Thimerosal Allergy Mild Rash Uncoded 09/14/25 13:27 Review of Systems Review of Systems: Yes all other systems are reviewed and are negative [facility] Past Medical History Attestation statement: The following information was validated with the patient. Source: old records reviewed and nursing notes reviewed Medical History Ocular migraine Nuclear sclerosis Genital HSV Prediabetes Osteoporosis without pathological fracture Wrist fracture PMR (polymyalgia rheumatica) Temporal arteritis Carotid stenosis Basal cell carcinoma Rosacea Hypothyroidism Allergic rhinitis Surgical History Cataract extraction status of left eye H/O wrist surgery History of neck surgery Hx of cataract surgery Family History Family History Mother Emphysema/COPD Father Prostate cancer Sister Emphysema/COPD Social History Social History Household Members: Spouse Housing: House Alcohol intake: current Alcohol intake frequency: does not drink Comment: Occassionally Patient Tobacco Use Status: Never used Tobacco Smoked in Last 30 Days: No Use of substances other than those prescribed or required for medical reasons: No Advance Directives: Yes Advance Directives Information Provided: No Advance Directives on File: No Do you have a plan to hurt others: No Plan Physical Exam ED Vital Signs: Vital Signs - 24 hr 09/15/25 11:36 09/15/25 20:31 09/15/25 22:55 Temperature 98.0 F 97.7 F Pulse Rate 57 62 Respiratory Rate 16 Blood Pressure 139/56 L 174/62 H Pulse Oximetry 96 97 Oxygen Delivery Method Room Air Room Air 09/16/25 03:13 Temperature 98 F Pulse Rate 53 Respiratory Rate 17 Blood Pressure 177/60 H Pulse Oximetry 97 Oxygen Delivery Method Room Air BMI result Body Mass Index 17.6 GENERAL APPEARANCE: ?AxOx4, non toxic appearing, no acute distress. HEENT: ?NC, AT. MMM. EOMI, no nystagmus, clear conjunctiva, oropharynx clear. NECK: ?Supple without lymphadenopathy.? No stiffness or restricted ROM. HEART:? Bradycardic rate and regular rhythm, normal S1/S2, no m/r/g LUNGS:? CTAB, moving air well. No crackles or wheezes are heard. ABDOMEN: ?Soft, nontender, nondistended, no rigidity, no overlying skin changes BACK: No CVAT, no obvious deformity. EXTREMITIES: ?Without cyanosis, clubbing or edema. NEUROLOGICAL: ?Grossly nonfocal. Alert and oriented, moving all 4 extremities. Skin: ?Warm and dry without any rash. Course Course Course Narrative: Time: 15:14 Date: 09/15/25 Provider: Garrett Daniels PA-C Patient in physician observation for case management needs. No acute events reported overnight.? No current issues or complaints. Patient was evaluated by PT this morning who recommend STR. Currently awaiting insurance authorization for STR placement. Will continue to monitor as we await dispostion. Reevaluation(s) Reevaluation #1: Time: 08:40 Date: 09/16/25 Provider: KYLE Andrea Patient in physician observation for case management needs. No acute events reported overnight.? No current issues or complaints. VS stable. Time: 08:41 Date: 09/16/25 Provider: KYLE Andrea Physician observation ended at 08:41. Patient will be discharged [facility] via [facility] for short-term rehab at 9:00 a.m. patient given short supply of oxycodone for severe pain only. Medications Administered Generic Name Dose Route Start Last Admin Trade Name Freq PRN Reason Stop Dose Admin Calcium Carbonate/Cholecalciferol 500 mg 09/15/25 21:00 09/15/25 20:30 Calcium + Vitamin D 250 Mg Tablet PO 500 mg BID JACOB Administration Ketorolac Tromethamine 1 drop 09/15/25 21:00 09/15/25 20:29 Ketorolac Tromethamine 0.5% Op 5 Ml Drops EYE-RIGHT Not Given TID [facility] Levothyroxine Sodium 88 mcg 09/16/25 06:00 09/16/25 07:03 Levothyroxine Sodium 88 Mcg Tablet PO 88 mcg DAILY@0600 JACOB Administration Lidocaine 1 patch 09/15/25 20:22 09/15/25 20:29 Lidocaine 4 % Patch Adh..Patch TRANSDERMA 1 patch DAILY PRN Administration Pain Discontinued Medications Generic Name Dose Route Start Last Admin Trade Name Freq PRN Reason Stop Dose Admin Lactated Ringer's 1,000 mls @ 999 mls/hr 09/14/25 15:20 09/14/25 16:45 Lr IV 09/14/25 16:20 Infused .Q1H1M ONE Infusion Acetaminophen 1,000 mg in 100 mls @ 400 mls/hr 09/14/25 17:50 09/14/25 18:34 Ofirmev IV 09/14/25 18:04 Infused ONCE ONE Infusion Iohexol 100 ml 09/14/25 15:41 09/14/25 15:43 Iohexol 350 Mg/Ml 100 Ml Infus..Btl IV 09/14/25 15:42 70 ml ONCE ONE Administration Ketorolac Tromethamine 15 mg 09/14/25 17:50 09/14/25 18:06 Ketorolac Tromethamine 15 Mg/Ml Vial IVPUSH 09/14/25 17:51 15 mg ONCE ONE Administration Oxycodone HCl 5 mg 09/15/25 07:18 09/15/25 07:29 Oxycodone Hcl Immed Release 5 Mg Tablet PO 09/15/25 07:19 5 mg ONCE ONE Administration Oxycodone HCl 5 mg 09/15/25 20:10 09/15/25 20:30 Oxycodone Hcl Immed Release 5 Mg Tablet PO 09/15/25 20:11 5 mg ONCE ONE Administration Medical Decision Making Medical Decision Making MDM Narrative: 80-year-old female with medical history of osteoporosis, polymyalgia rheumatica, carotid stenosis, basal cell carcinoma, rosacea, hypothyroidism, presents to the ED due to syncopal episode prior to arrival while having a bowel movement that reports was loose and watery. was able to aid the patient immediately and states patient was alert the entire time without LOC or headstrike. Patient took dose of gabapentin or muscle relaxer prior to near syncopal episdode but she does not know which medication she took. Patient was in the department on 09/06 for syncopal episode and was found to have compression fracture of L2 and discharged home with f/u with [facility] spinal armona. VS on initial observation-BP 145/55, pulse rate of 53, respiratory rate of 16, afebrile with oral temp of 97?, O2 saturation 100% on room air. On physical exam patient is nontoxic appearing, lungs clear to auscultation bilaterally without rhonchi, rales or wheeze, cardiac exam reveals normal rhythm with bradycardic rate without murmurs/rubs/gallops, abdomen is soft, nondistended, nonrigid, nontender, extremities without edema, no focal neurological deficits. Plan: Labs, EKG, CTA head and neck EKG reveals sinus bradycardia without ST-elevation/depression, non specific T wave inversions in aVR and V1 initial troponin WNL at 3.5, 2nd troponin 3.1, no delta, patient without chest pain Labs without leukocytosis/leukopenia, no evidence of anemia, H&H stable, no electrolyte abnormalities, mild transaminitis with an AST of 61, ALT of 57, BNP WNL at 247.1 CTA head/neck without significant stenosis or or occlusion. Othostatic vital signs without orthostatic hypotension or elevated HR compensation. Patient complaining of back pain due to known compression fracture of L2. Patient has recieved 1L IV fluids, 1g IV tylenol, 15mg IV toradol for pain management. Patient is attempting to ambulate on her feet but feels very weak and unsteady due to pain of her back. Patient will be evaluated by PT in the morning as patient is requesting STR as she and her are having a hard time caring for her at home. Differential Diagnosis Differential Diagnoses: The differential diagnosis associated with the presentation includes Vasovagal syncope Dysrhythmia Electrolyte abnormality Orthostatic hypotension Carotid stenosis Admission/Observation Consideration of admission/observation: Escalation of care including admission/observation considered Lab Data MDM Lab Attestation statement: I reviewed the patient's lab results. 09/14/25 14:44 09/14/25 14:44 Labs: Lab Results 09/14/25 09/14/25 09/14/25 Range/Units 14:10 14:44 16:51 WBC 9.9 (4.8-10.8) X10*3/uL RBC 4.12 L (4.20-5.50) X10*6/uL Hgb 12.9 (12.0-16.0) g/dl Hct 37.7 (37.0-47.0) % MCV 91.5 (80.0-98.0) fL MCH 31.3 (27.0-33.0) pg MCHC 34.2 (31.0-35.0) g/dl RDW 13.2 (11.0-16.0) % Plt Count 300 D (160-400) X10*3/uL MPV 9.0 L (9.4-12.3) fL Immature Gran % (Auto) 0.5 H (0.0-0.4) % Neut % (Auto) 71.2 (45-73) % Lymph % (Auto) 20.1 (20-40) % Gaston % (Auto) 6.9 (2-11) % Eos % (Auto) 1.0 (0-4) % Baso % (Auto) 0.3 (0-2) % Lymph # (Auto) 2.0 (1.2-4.9) X10*3/uL Gaston # (Auto) 0.7 (0.1-1.2) X10*3/uL Eos # (Auto) 0.1 (0.0-0.4) X10*3/uL Baso # (Auto) 0.0 (0.0-0.2) X10*3/uL Abs Immat Gran (auto) 0.05 H (0.00-0.03) X10*3/uL Absolute Neuts (auto) 7.0 (2.0-8.3) x10*3/uL Absolute Nucleated RBC 0.000 (0.0-0.012) X10*3/uL Nucleated RBC % (auto) 0.0 (0.0-0.2) /100WBC Sodium 137 (135-145) mmol/L Potassium 3.7 (3.3-5.1) mmol/L Chloride 99 (96-108) mmol/L Carbon Dioxide 27 (22-29) mmol/L Anion Gap 15 (12-20) BUN 12 (9-16) mg/dL Creatinine 0.81 (0.5-1.4) mg/dL Estim Creat Clear Calc 44.8 Estimated GFR > 60 POC Glucose 80 (60-115) mg/dL Random Glucose 102 (60-115) mg/dL Calcium 9.6 (8.4-10.2) mg/dL Magnesium 2.1 (1.6-2.6) mg/dL Total Bilirubin 0.5 (0.0-1.0) mg/dL AST 61 H (5-31) U/L ALT 57 H (0-31) U/L Alkaline Phosphatase 90 (39-117) U/L Troponin I High Sens 3.5 3.1 (<3.5-17.0) ng/L NT-Pro-B Natriuret Pep 247.1 (<300) pg/mL Total Protein 7.1 (6.5-8.0) g/dL Albumin 4.3 (3.5-5.0) g/dL Independent Interpretation I performed an independent interpretation of an: EKG and CT Scan Interpretation: I personally interpreted the EKG which reveals sinus bradycardia without ST-elevation/depression, nonspecific T-wave inversions in AVR, V1 Vent. Rate : 53 BPM Atrial Rate : 53 BPM P-R Int : 158 ms QRS Dur : 80 ms QT Int : 502 ms P-R-T Axes : 71 56 66 degrees QTcB Int : 471 ms Sinus bradycardia Otherwise normal ECG When compared with ECG of 06-Sep-2025 16:05, QRS axis Shifted left Criteria for Lateral infarct are no longer Present Radiology Impression Discussion of test interpretation with radiology: I have reviewed the radiologist's reading. Radiologist Impression: CTA head neck Discharge Plan Discharge Clinical Impression: Near syncope, Polymyalgia rheumatica, Anterolisthesis of cervical spine Closed L2 vertebral fracture Qualifiers: Encounter type: subsequent encounter Fracture morphology: wedge compression Osteoarthritis Qualifiers: Osteoarthritis location: hip Osteoarthritis type: unspecified Laterality: bilateral Qualified Code(s): M16.0 - Bilateral primary osteoarthritis of hip Basal cell carcinoma Qualifiers: Basal cell carcinoma location: unspecified site Qualified Code(s): C44.91 - Basal cell carcinoma of skin, unspecified Osteoporosis Qualifiers: Osteoporosis type: unspecified Presence of current pathological fracture: unspecified Qualified Code(s): M81.0 - Age-related osteoporosis without current pathological fracture DJD (degenerative joint disease), cervical Qualifiers: Spinal osteoarthritis complication: unspecified spinal osteoarthritis Qualified Code(s): M47.812 - Spondylosis without myelopathy or radiculopathy, cervical region Patient Disposition: Xfer Inpatient Rehab Fac Transfer Details: TO [facility], DR HENSON ACCEPTING Instructions: Near Syncope (ED), Polymyalgia Rheumatica (ED), Osteoporosis (ED) Additional Instructions: You were seen in the emergency department and did not meet admission criteria. Please continue all at-home medications as prescribed. We gave you a short supply of oxycodone for severe pain only, please be advised that this can cause drowsiness, do not drink alcohol or drive while taking this medication. Please be advised that this can increase your risk of fall. Prescriptions: New oxycodone 5 mg tablet 5 mg PO Q8H PRN (Reason: severe pain (scale score 7-10)) Qty: 5 0RF Rx Instructions: Partial Fill upon patient request. No Action levothyroxine 88 mcg tablet 88 mcg PO DAILY@0600 ketorolac 0.5 % drops 1 drp ophthalmic-Right TID alendronate 70 mg tablet 70 mg PO MEIER acetaminophen 500 mg tablet 1,000 mg PO Q8H PRN (Reason: Pain) lidocaine 5 % adhesive patch,medicated 1 patch topical DAILY PRN (Reason: Pain) Rx Instructions: leave on most painful area for up to 12 hrs cholecalciferol (vitamin D3) [Vitamin D3] 50 mcg (2,000 unit) Tablet 100 mcg PO DAILY aspirin [Adult Aspirin Regimen] 81 mg tablet,delayed release (DR/EC) 81 mg PO DAILY calcium carbonate [Calcium 600] 600 mg calcium (1,500 mg) tablet 600 mg PO BID Referrals: [facility] [Outside] Norma Conde MD [Primary Care Provider, Internal Medicine] Print Language: Czech
[2025-09-14 14:15] LABS: Glucose, Whole Blood 80 mg/dL (60-115)
[2025-09-14 14:49] LABS: MANUAL DIFF FLAG NO
[2025-09-14 14:53] LABS: Hematocrit 37.7 % (37.0-47.0); Hemoglobin 12.9 g/dl (12.0-16.0); Imm Gran Abs Auto 0.05 X10*3/uL (0.00-0.03); Imm Gran Pct Auto 0.5 % (0.0-0.4); Lymphocytes Absolute Auto 2.0 X10*3/uL (1.2-4.9); Mean Corpuscular HGB Conc 34.2 g/dl (31.0-35.0); Mean Corpuscular Hemoglobin 31.3 pg (27.0-33.0); Mean Corpuscular Volume 91.5 fL (80.0-98.0); NRBC Abs Auto 0.000 X10*3/uL (0.0-0.012); NRBC Pct Auto 0.0 /100WBC (0.0-0.2); Platelet Count 300 X10*3/uL (160-400); Red Blood Count 4.12 X10*6/uL (4.20-5.50); White Blood Count 9.9 X10*3/uL (4.8-10.8)
[2025-09-14 15:06] LABS: Alanine Aminotransferase 57 U/L (0-31); Albumin Level 4.3 g/dL (3.5-5.0); Alkaline Phosphatase 90 U/L (39-117); Anion Gap 15 (12-20); Aspartate Amino Transferase 61 U/L (5-31); Blood Urea Nitrogen 12 mg/dL (9-16); Calcium 9.6 mg/dL (8.4-10.2); Carbon Dioxide 27 mmol/L (22-29); Chloride 99 mmol/L (96-108); Creatinine Clr Calc Pharmacy 44.8; Estimated Glomerular Filt Rate > 60; Potassium 3.7 mmol/L (3.3-5.1); Sodium 137 mmol/L (135-145); Total Protein 7.1 g/dL (6.5-8.0)
[2025-09-14 15:10] LABS: Magnesium 2.1 mg/dL (1.6-2.6)
[2025-09-14 15:13] LABS: NT Pro B Type Natriuretic Pept 247.1 pg/mL (<300)
[2025-09-14 15:17] LABS: Troponin-I High Sensitivity 3.5 ng/L (<3.5-17.0)
[2025-09-14] MEDS: iohexoL 350 MG/ML 100 ML INFUS..BTL IV (15:43)
[2025-09-14] MEDS: Lactated Ringers 1,000 ML 999 ML IV (15:44)
--- OUTSIDE RECORDS SUMMARY | 2025-09-14 15:55 | XMS_ITS | Clinical Summary ---
Author Organization [address] Address [address] [place] [phone] Phone Care Team Providers Care Carboy Filler Name Role Phone Norma Conde MD Primary Care Provider [phone] Allergies Active Allergy Reactions Criticality Noted Date [...] 5 DAYS 10 tablet 1 5 Active acetaminophen (TYLENOL) 500 mg tablet Take 1 tablet (500 mg total) by mouth every 4 (four) hours if needed. 5 Active lidocaine (LIDODERM) 5 % patch 5 Active oxyCODONE (ROXICODONE) 5 mg immediate release tablet Take 1 tablet (5 mg total) by mouth every 6 (six) hours if needed. 5 Active gabapentin (NEURONTIN) 100 mg capsule Take 3 capsules (300 mg total) by mouth at bedtime AND 1 capsule (100 mg total) 1 (one) time each day in the morning AND 1 capsule (100 mg total) 1 (one) time each day with lunch. 90 each 5 Active tiZANidine (ZANAFLEX) 4 mg tablet Take 1 tablet (4 mg total) by mouth 3 (three) times a day if needed for muscle spasms. 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 Following with automotive product engineer, Keyur Barfield MD Carotid stenosis 12/13/2015 Overview [...] Encounters Date Type Department Care Team Description 09/14/2025 8:30 AM EST Office Visit Adult Medicine [address] [phone] Renea Bruce PA Closed compression fracture of L2 vertebra, initial encounter ([facility] V24, [facility] V28) (Primary Dx) 09/14/2025 Telephone Adult Medicine [address] [phone] Norma Conde MD 09/13/2025 Telephone Adult Medicine [address] [phone] Norma Conde MD 08/04/2025 10:00 AM EDT Consult Adult Medicine [address] [phone] Norma Conde MD Preop cardiovascular exam (Primary Dx); Prediabetes; Other hyperlipidemia; Age-related osteoporosis without current pathological fracture; Hypothyroidism due to acquired atrophy of thyroid; Cataract of right eye, unspecified cataract type 07/26/2025 Telephone Adult [address] [phone] Latesha Morales RN 06/30/[address] [phone] Latesha Morales RN 06/16/2025 2:30 PM EDT Clinical Support [address] [phone] Need for hepatitis B vaccination 06/15/2025 1:00 PM EDT Office Visit [address] [phone] Renea Bruce PA Blood pressure check (Primary Dx); Age-related osteoporosis without current pathological fracture from Last 3 Months Immunizations Immunization Administration Dates Next Due COVID-19 (Pfizer/Comirnaty) 12yo and older 03/10/2024 Hepatitis B (Iyphcfp-D-Otzrx , Recombivax HB-Adult) 19yo and older 06/16/2025,12/16/2024,11/09/2024 [...] Bilateral, gamaliel re,vertebral artery stenosis Temporal arteritis ([facility] V24, [facility] V28) 12/21/2015 Wrist fracture 07/30/2017 : 07/30 [...] ed Within the last 3 months, ho w many times did you visit the emergency [...] for your loved ones. For example, child & adolescent psychiatrist or elderly care for an older adult? [...] Mass Index 20.14 09/14/2025 8:37 AM EST Plan of Treatment Upcoming Encounters Date Type Department Care Team (Late st Contact Info) Description 12/13/2025 1:15 PM EST Office Visit Adult Medicine [id number] [place] [address] Norma Conde MD [address] [place] [address] Health Maintenance Due Date Last Done Comments RSV Immunization Adult Patients (1 - 1-dose 75+ series) 2022 12/04/2023 Osteoporosis Screening (Bone Density Screening) 11/15/2024 11/15/2022, 07/05/2020, 12/31/2017 COVID-19 Vaccine ( season) 2025 07/20/2025, 06/25/2024, 03/10/2024, Additional history exists Medicare Annual Wellness Visit 05/06/2026 05/06/2025 Falls Risk Assessment 06/15/2026 06/15/2025 , 05/06/2025, 04/23/2024 Social Influencers of Health Screening 09/14/2026 09/14/2025 Cholesterol Screening (Lipid Panel) 07/29/2030 07/29/2025, 10/22/2024, 12/11/2023 DTaP,Tdap,and Td Vaccines (4 - Td or Tdap) 11/09/2031 11/09/2021, 08/09/2011, 03/22/2003 Pneumococcal Vaccine: 50+ Years Completed 11/02/2015, 11/10/2012 Hepatitis C Screening Completed 11/23/2016 Zoster Vaccines Completed 08/10/2020, 080 04/2020, 02/15/2011 RSV Immunization Patients Under 20 months Aged Out 12/04/2023 No longer eligible based on patient's age to complete this topic Hepatitis B Vaccines Completed 06/16/2025, 12/16/2024, 11/09/2024 Influenza Vaccine Completed 07/20/2025, , 07/18/2023, Additional history exists Depression Screening Completed 09/14/2025 HIB Vaccines Aged Out No longer eligi [...] LAB CHEMISTRY METHOD 07/29/2025 6:50 PM EDT [facility] Triglycerides 91 0 - 150 mg/dL LAB CHEMISTRY METHOD 07/29/2025 6:50 PM EDT [facility] HDL 89 >=40 mg/dL LAB CHEMISTRY METHOD 07/29/2025 6:50 PM EDT [facility] LDL Calculated 75 0 - 100 mg/dL LAB CHEMISTRY METHOD 07/29/2025 6:50 PM EDT [facility] Comment:Estimated LDL Calcul ated using equation: Total cholesterol - HDL cholesterol - (Triglycerides/5) VLDL Cholesterol Faiza 18.2 mg/dL LAB CHEMISTRY METHOD 07/29/2025 6:50 PM EDT [facility] Non HDL Chol. (LDL+VLDL) 93 <145 mg/dL LAB CHEMISTRY METHOD 07/29/2025 6:50 PM EDT [facility] Chol/HDL Ratio 2.0 0.0 - 4.4 LAB CHEMISTRY METHOD 07/29/2025 6:50 PM EDT [facility] Blood Venous blood specimen / Unknown Venipuncture / Unknown 07/29/2025 2:25 PM EDT 07/29/2025 2:25 PM EDT us Norma Conde MD LAB BLOOD ORDERABLES Final Resul t [facility] [address] [place] [address], * (ABNORMAL) CBC auto differential (07/29/2025 2:25 PM EDT) WBC 7.3 4.8 - 10.8 K/mcL LAB HEMETOLOGY METHOD 07/29/2025 5:22 PM EDT [facility] RBC 4.20 3.80 - 4.80 M/mcL LAB HEMETOLOGY METHOD 07/29/2025 5:22 PM EDT [facility] Hemoglobin 13.6 11.5 - 16.0 g/dL LAB HEMETOLOGY METHOD 07/29/2025 5:22 PM EDT [facility] Hematocrit 39.7 35.0 - 47.0 % LAB HEMETOLOGY METHOD 07/29/2025 5:22 PM EDT [facility] MCV 95.2 79.0 - 98.0 FL LAB HEMETOLOGY METHOD 07/29/2025 5:22 PM EDT [facility] MCH 32.6(H) 27.0 - 32.0 pcg LAB HEMETOLOGY METHOD 07/29/2025 5:22 PM EDT [facility] MCHC 34.3 32.0 - 37.0 g/dL LAB HEMETOLOGY METHOD 07/29/2025 5:22 PM EDT [facility] RDW 12.9 11.0 - 15.0 % LAB HEMETOLOGY METHOD 07/29/2025 5:22 PM EDT [facility] Platelets 309 130 - 400 K/mcL LAB HEMETOLOGY METHOD 07/29/2025 5:22 PM EDT [facility] MPV 10.4 7.0 - 11.0 FL LAB HEMETOLOGY METHOD 07/29/2025 5:22 PM EDT [facility] NRBC 0.0 <1.0 % LAB HEMETOLOGY METHOD 07/29/2025 5:22 PM EDT [facility] NRBC Absolute 0.00 <0.10 K/mcL LAB HEMETOLOGY METHOD 07/29/2025 5:22 PM EDT [facility] Neutrophils Relative 55.8 % LAB HEMETOLOGY [facility] Lymphocytes Relative 32.6 % LAB HEMETOLOGY METHOD 07/29/2025 5:22 PM EDT [facility] Monocytes Relative 9.0 % LAB HEMETOLOGY METHOD 07/29/2025 5:22 PM EDT [facility] Eosinophils Relative 1.8 % LAB HEMETOLOGY METHOD 07/29/2025 5:22 PM EDT [facility] Basophils Relative 0.5 % LAB HEMETOLOGY METHOD 07/29[facility]2025 5[facility] Immature Granulocytes Relative 0.3 % LAB HEMETOLOGY METHOD 07/29/2025 5:22 PM EDT [facility] Neutrophils Absolute 4.08 1.50 - 7.00 K/mcL LAB HEMETOLOGY METHOD 07/29/2025 5:22 PM EDT [facility] Lymphocytes Absolute 2.38 1.00 - 5.00 K/mcL LAB HEMETOLOGY METHOD 07/29/2025 5:22 PM EDT [facility] Monocytes Absolute 0.66 0.20 - 1.00 K/mcL LAB HEMETOLOGY METHOD 07/29/2025 5:22 PM EDT [facility] Eosinophils Absolute 0.13 0.00 - 0.50 K/mcL LAB HEMETOLOGY METHOD 07/29/2025 5:22 PM EDT [facility] Basophils Absolute 0.04 0.00 - 0.20 K/mcL LAB HEMETOLOGY METHOD 07/29/2025 5:22 PM EDT [facility] Immature Granulocytes Absolute 0.02 0.00 - 0.03 K/mcL LAB HEMETOLOGY METHOD 07/29/2025 5:22 PM EDT [facility] Blood Venous blood specimen / Unknown Venipuncture / Unknown 07/29/2025 2:25 PM EDT 07/29/2025 2:25 PM EDT us Norma Conde MD LAB BLOOD ORDERABLES Final Resul t [facility] [address] [place] [address], * Methylmalonic acid, serum (07/29/2025 2:25 PM EDT) Methylmalonic Acid 0.20 <0.40 umol/L 08/03/2025 1:24 PM EDT [facility] Comment: If applicable, any drug confirmation testing reported here was developed and the performance characteristics determined by [facility]. This confirmation testing has not been cleared or approved by the FDA. The laboratory is regulated under CLIA as qualified to perform high-complexity testing. This test is used for patient testing purposes. It should not be regarded as investigational or for research. Test performed at [facility], [address], [place] [address] Jada Mejía MD, PhD - Agricultural Crop Farm Manager Blood Venous blood specimen / Unknown Venipuncture / Unknown 07/29/2025 2:25 PM EDT 07/29/2025 2:25 PM EDT Norma Conde MD LAB BLOOD ORDERABLES Final Resul t Performing Organization Address City/[facility]/ZIP Co de Phone Number [facility] [address] [place] [address] * Hemoglobin A1c (07/29/2025 2:25 PM EDT) [facility] Hemoglobin A1C 6.0 <6.5 % LAB CHEMISTRY METHOD 07/29/2025 9:39 PM EDT [facility] Mean Bld Glu Estim. 126 mg/dL LAB CHEMISTRY METHOD 07/29/2025 9:39 PM EDT [facility] Blood Venous blood specimen / Unknown Venipuncture / Unknown 07/29/2025 2:25 PM EDT 07/29/2025 2:25 PM EDT Norma Conde MD LAB BLOOD ORDERABLES Final Resul t Performing Organization Address City/[facility]/ZIP Co de Phone Number [facility] [address] [place] [address], [place] [phone] * DXA BONE DENSITY STUDY 1+ SITS [...] IMPRESSION: IMPRESSION: Osteoporosis by WHO criteria. The [facility] Department of Internal Medicine recommends using National [...] alternative screening schedule based on miki Peña., [facility] November 01, 2011 for patients with [...] IMPRESSION: IMPRESSION: Osteoporosis by WHO criteria. The [facility] Department of Internal Medicine recommendsusing National Osteoporosis [...] alternative screening schedule based on miki Peña., [place] 2011 for patients with osteopenia (based on [...] [place]OSS - [place] MEDICARE ADVANTAGE Care Teams Carboy Filler Relationship Specialty Start Date End Date Norma Conde MD [address] [place] [phone] PCP - General 09/27/1992
--- OUTSIDE RECORDS SUMMARY | 2025-09-14 15:55 | XMS_ITS | Encounter Summary ---
Author Organization [place] [address] Care Team Providers Care Funeral Home Director Name Role Phone Norma Conde MD Primary Care Provider [phone] Reason for Visit * Reason Onset Date Comments Hospitalization/ER 09/13/2025 Compression Fracture 09/13/2025 Fall 09/13/2025 Encounter Details Date Type Department Care Team (Late st Contact Info) Description 09/13/2025 Telephone Adult Medicine [facility] [address] [place], [place] [phone] Norma Conde MD [address] [place], [place] Social History Tobacco Use Types Packs/Day Years [...] care for your loved ones. For example, childcare worker or elderly care for an older adult? [...] PM EDT documented as of this encounter Progress Notes * Lisa Castro - 09/13/2025 9:54 AM EST Hospital/ER follow up appointment needed Hospital patient was treated at: [facility] Was this only an ER visit or was the patient admitted to the hospital? ER Visit only Date of visit if ER visit only: 09/06 If patient was admitted what was the date of discharge? Reason/diagnosis for visit or stay: fall, patient fell on 09/06, just entered a patient portal message on 09/12, please see message. She has a compression fracture of her L2, prescribed Oxycodone from the ER and is asking for another prescription and needs an MRI to see [facility]. When was the patient told to follow up? Unsure, patient is a little unsure of some details and her came on the phone. Was visit or stay related to an injury? If yes, what was the date of injury (DOI)? Yes. 09/06/25 If yes, was the injury due to: Not 3rd libertarian related documented in this encounter Plan of Treatment Upcoming Encounters Date Type Department Care Team (Late st Contact Info) Description 12/13/2025 1:15 PM EST Office Visit Adult Medicine [address] [phone] Norma Conde MD [address] [place] [address] documented as of this encounter Visit Diagnoses Not on filedocumented in this encounter Additional Health Concerns Assessment Noted Time PHQ-9 Depression Total Score: 0 05/06/20 25 10:42 AM EDT documented as of this encounter Care Teams Funeral Home Director Relationship Specialty Start Date End Date Norma Conde MD [address] [place] [address] PCP - General 09/27/1992 documented as of this encounter
--- OUTSIDE RECORDS SUMMARY | 2025-09-14 15:55 | XMS_ITS | Encounter Summary ---
Author Organization [facility] Address [address] [place] [address] Care Team Providers Care Care Taker Name Role Phone Norma Conde MD Primary Care Provider [phone] Reason for Visit * Reason Onset Date Comments Medication Reaction 09/14/2025 Encounter Details Date Type Department Care Team ([facility] st Contact Info) Description 09/14/2025 Telephone Adult Medicine [facility] [address] [place], [place] [phone] Norma Conde MD [address] [place], [place] Social History Tobacco Use Types Packs/Day [...] for your loved ones. For example, child nutrition director or elderly care for an older [...] as of this encounter Progress Notes * Mila Sanchez MA - 09/14/2025 3:01 PM EST FYI * Jordan Borden - 09/14/2025 2:04 PM EST Medication Problem: What is the name of the medication patient is having a problem with?: tiZANidine (ZANAFLEX) 4 mg tablet What is the problem?: Patient Spouse Neena states that PT took the medication, after taking this medication PT because delirious, unable to communicate, over heating/ Sweating. PT is currently at [facility] Who is calling about the problem? : Spouse: Name: Neena Weiner Is this a NEW medication?: yes How long has the patient been taking this medication? 09/14/25 Who prescribed this medication for the patient? Renea Bruce Who is patients PCP?: Norma Conde MD Payor: BLUE CROSS - [place] MEDICARE ADVANTAGE / Plan: [employer] [place] MED[place]ARE [place]AGE / Product Type: *No Product type* / documented in this encounter Plan of Treatment Upcoming Encounters Date Type Department Care Team (Late st Contact Info) Description 12/13/2025 1:15 PM EST Office Visit Adult Medicine [address] [phone] Norma Conde MD [address] [place] [address] documented as of this encounter Visit Diagnoses Not on filedocumented in this encounter Additional Health Concerns Assessment Noted Time PHQ-9 Depression Total Score: 0 09/14/20 25 8:43 AM EST documented as of this encounter Care Teams Care Taker Relationship Specialty Start Date End Date Norma Conde MD [address] [place] [address] PCP - General 09/27/1992 documented as of this encounter
--- OUTSIDE RECORDS SUMMARY | 2025-09-14 15:55 | XMS_ITS | Encounter Summary ---
Author Organization [facility] Address [address] [facility] [address] [place] [address] Phone Care Team Providers Care Guard Supervisor Name Role Phone Norma Conde MD Primary Care Provider [phone] Charlie Ya MD Primary Care Provide r Reason for Referral * Physical Therapy (Routine) - Closed Specialty Diagnoses / Procedures Referred By Jaki valentine Referred To Contact Physical Therapy Diagnoses Encounter for rehabilitation System, Provider Not In, [facility] [id number] [place] [address] Phone: tel: Referral ID Status Reason Start Date Expiration Date Visits Re quested Visits Authorized [id number] Closed 11/11/2018 10/13/2019 99 [phone] Encounter Details Date Type Department Care Team (Latest Contact Info) Description 10/30/2018 Transcribe Orders [facility] [address] [place] [phone] Norma Conde MD [address] [place] [phone] Encounter for rehabilitation (Primary Dx) Social History [...] Diagnoses Orde r Schedule Ambulatory referral to [facility] Physical Therapy Outpatient Referral Routine Encounter for rehabilitation Ordered: 10/30/2018 documented as of this encounter Visit Diagnoses Diagnosis Encounter for rehabilitation- Primary documented in this encounter Care Teams Guard Supervisor Relationship Specialty Start Date End Date Norma Conde MD [address] [place] [phone] PCP - General Internal Medicine 10/29/18 11/01/19 Charlie Ya MD [address] [place] [phone] [email or web address] PCP - General Rheumatology 11/02/19 documented as of this encounter Additional Source Comments The information contained in this document represents components of the legal health record. It is not the complete legal health record.[facility]
--- OUTSIDE RECORDS SUMMARY | 2025-09-14 15:55 | XMS_ITS | Clinical Summary ---
Author Organization [facility] Address [address] [employer] [address] [address] Phone Care Team Providers Care Disaster Or Damage Control Specialist Name Role Phone Charlie Ya MD Primary [...] Take 81 mg by mouth daily. Active fvjttovu-cuo-zw rrous gluconate (CENTRUM WITH IRON) 9 mg iron/15 mL Liqd Take 15 mL by mouth daily. Active xasdfyi-frtc-jx wan-been-xwrldr 100 mg-150 mg- 50 mg-150 mg Cap [...] REPLACEMENT MEDICARE PPO BLUE REPLACEMENT Care Teams Disaster Or Damage Control Specialist Relationship Specialty Start Date End Date Charlie Ya MD [address] [place] [phone] [email or web address] PCP - General Rheumatology 11/02/19 Additional Source Comments The information contained in this document represents components of the legal health record. It is not the complete legal health record.[facility]
[2025-09-14 17:22] LABS: Troponin-I High Sensitivity 3.1 ng/L (<3.5-17.0)
--- NOTE | 2025-09-14 17:46 | MHC.EDTECH ---
pt ambulated to and from the bathroom with assistance, slow pace, holding on to t/w the whole time, however steady, RN made aware
--- NOTE | 2025-09-14 19:28 | MHC.EDTECH ---
pt independently ambulated to hospital bed, call sanderson and bedside table within reach, bed alarm on d/t high fall risk
--- NOTE | 2025-09-14 20:18 | MHC.CM.ED ---
CM met with patient to discuss discharge planning. Pt lives with her . She is normally very independent. She drives. She uses no DME or services. She states her HCP is at home. HCP/ Neena Weiner ([phone]). She was seen in [facility] ED on 09/07 after having dizziness and a fall that resulted in Compression fx of L2. Pt was discharged home with f/u to spine surgery. Pt had a near syncopal episode on the toilet today. Pt c/o severe back pain. Pt having difficulty ambulating and with ADL's. PT is pending. Pt is requesting Acute rehab with [facility] as first choice. CM discussed acute vs STR. CM will place acute referrals. Pt has Medicare HMO Blue.
[2025-09-15 06:22] VITALS: BP 136/58; PULSE 56; RESP 16; O2SAT 99
--- NOTE | 2025-09-15 06:23 | MHC.EDTECH ---
pt ambulated to bathroom with slow steady gait with one assist.
--- NOTE | 2025-09-15 06:25 | PC.NURSE ---
pt resting comfortably throughout the night. call sanderson w/in reach. no apparent distress at this time
[2025-09-15] MEDS: oxyCODONE HCl Immed Release 5 MG TABLET PO ×2 (07:29→20:30)
--- NOTE | 2025-09-15 08:56 | PC.NURSE ---
Physical therapy working with pt at this time, ambulatory [facility]. Will inquire with pharmacy for med rec
--- NOTE | 2025-09-15 11:21 | PC.NURSE ---
CM at bedside for evaluation
--- NOTE | 2025-09-15 11:26 | MHC.CM.ED ---
Patient remains in ER. Physical therapy eval completed. Rehab is recommended. None of the 3 acute rehab facilities are able to offer a bed because they do not feel [facility] will auth acute rehab. Met with patient and , Neena, in regards to discharge planning. [facility]. Referral made via [facility]. Continue to monitor for d/c needs.
[2025-09-15 11:36] VITALS: BP 139/56; PULSE 57; TEMP 36.7; O2SAT 96
--- NOTE | 2025-09-15 14:46 | PHA.MEDREC ---
Addendum entered by Matthew Castaneda RPh 09/15/25 15:07: Reviewed by [facility] Original Note: Pharmacy Consult ? Medication Reconciliation Pharmacy has completed the medication reconciliation. Spoke with pt and she was able to confirm her medications but seemed like a poor historian with some of them and requested we call her to confirm the meds. I called and spoke with Neena ([phone]) and he verified pt medications. Spouse confirmed pt not taking Atorvastatin; found a full bottle at pt bedside with tamper seal still intact, pt takes her Alendronate tablet once a week on Sundays; pt and spouse confirmed she last took it Wednesday 09/12, she is taking Levothyroxine 88mcg once daily; pt unsure the dose and had confirmed with bottle at home and she got prescribed Tizanidine and Gababpentin yesterday (09/14); spouse states pt never started the Gabapentin but pt took 1 tab of the TIzanidine then she became delirious and couldn't communicate correctly per spouse and is the reason the pt came back into the ED.
--- NOTE | 2025-09-15 19:55 | MHC.CM.ED ---
[facility] has accepted patient and auth obtained. Pt will transport by BLS 09/16 to facility at 9am. Med nec to marketing community liaison
[2025-09-15] MEDS: Lidocaine 4 % Patch ADH..PATCH 1 PATCH TRANSDERMA (20:29)
[2025-09-15] MEDS: Calcium + Vitamin D 250 MG TABLET 500 MG PO (20:30)
[2025-09-15 20:31] VITALS: PULSE 62; RESP 16; TEMP 36.5; O2SAT 97
[2025-09-15 22:55] VITALS: BP 174/62
[2025-09-16 03:13] VITALS: BP 177/60; PULSE 53; RESP 17; TEMP 36.6; O2SAT 97
--- NOTE | 2025-09-16 07:44 | PC.NURSE ---
Report was taken from previous rn at 0700. pt is caox4 and in no distress. she is tolerating breakfast, fall precautions are in place. she is not on o2 or iv fluids. plan is for d/c by [facility] to rehab at 0900
[2025-09-16] MEDS: Aspirin Enteric Coated 81 MG TABLET.DR PO (08:50)
== END 2025-09-16 09:14 ==
PROVIDERS: Emergency Provider Emergency Medicine; PCP Internal Medicine
DX: R55 Syncope and collapse (principal); S32.020D Wedge compression fracture of second lumbar vertebra, subsequent encounter for fracture with routine healing; X58.XXXD Exposure to other specified factors, subsequent encounter; M35.3 Polymyalgia rheumatica; M16.0 Bilateral primary osteoarthritis of hip; C44.91 Basal cell carcinoma of skin, unspecified; M81.0 Age-related osteoporosis without current pathological fracture; M47.812 Spondylosis without myelopathy or radiculopathy, cervical region; Z88.2 Allergy status to sulfonamides; Z88.8 Allergy status to other drugs, medicaments and biological substances
CPT/HCPCS: 36415; 70496; 70498; 80053; 82947; 83735; 83880; 84484; 85025; 93005; 96361; 96365; 96375; 97162; 99285; J0131; J1885; J7120; Q9967

== ENCOUNTER → 2025-09-14 13:36 | Outpatient (BNV) | payer MEDICARE, SELFPAY | PROVIDERS: Emergency Provider Emergency Medicine; PCP Internal Medicine; Visit Provider Internal Medicine | DX: R00.1 Bradycardia, unspecified (principal) | CPT/HCPCS: 93010 ==

== ENCOUNTER → 2025-09-14 14:44 | Outpatient (BNV) | payer MEDICARE, SELFPAY | PROVIDERS: Emergency Provider Emergency Medicine; PCP Internal Medicine; Visit Provider Radiology Diagnostic Radiology | DX: I67.82 Cerebral ischemia (principal); R90.82 White matter disease, unspecified; I65.23 Occlusion and stenosis of bilateral carotid arteries | CPT/HCPCS: 70496; 70498 ==